=== PATIENT | male | born 1935 | race Caucasian/White ===

== ENCOUNTER 2016-10-06 14:30 | Inpatient (IN) | payer MEDICARE, BC ==
[~2016-10-06] VITALS: Ht 177.8 cm; Wt 85.8 kg
[2016-10-06] MEDS ORDERED: MORPHINE 2 MG/ML 1ML SYRINGE IV PRN ×2 (16:00→18:15)
[2016-10-06] MEDS ORDERED: ONDANSETRON 4MG/2ML VIAL (J2405) IV PRN (16:00)
[2016-10-06] MEDS ORDERED: PERCOCET 5MG/325MG TAB PO PRN ×2 (16:00→18:15)
[2016-10-06] MEDS ORDERED: ACETAMINOPHEN TAB 650MG DOSE (2X325MG) PO PRN (16:00)
[2016-10-06 16:30] VITALS: BP 126/58
[2016-10-06] MEDS ORDERED: KEPP500T6 PO (17:09)
[2016-10-06] MEDS ORDERED: HYDR25T PO (17:12)
[2016-10-06] MEDS ORDERED: CARB10TA2 PO (17:12)
[2016-10-06] MEDS ORDERED: DOXA1TAB73 PO (17:12)
[2016-10-06] MEDS ORDERED: LOVA40TA PO (17:12)
[2016-10-06] MEDS ORDERED: LEVO200T4 PO (17:12)
[2016-10-06] MEDS ORDERED: ZYLO300T4 PO (17:16)
[2016-10-06] MEDS ORDERED: TIMO5OPG OU (17:16)
[2016-10-06] MEDS ORDERED: RENV2TAB PO (17:16)
[2016-10-06] MEDS ORDERED: RENATAB6 PO (17:16)
[2016-10-06] MEDS ORDERED: FURO1TAB15 PO (17:16)
[2016-10-06] MEDS ORDERED: LATA5OPD OU (17:16)
[2016-10-06] MEDS ORDERED: CARV6.25 PO (17:17)
[2016-10-06] MEDS ORDERED: hydrOXYzine 25 MG TAB PO PRN (17:30)
[2016-10-06] MEDS ORDERED: HEPARIN SOD (PORCINE) 5000 UNITS/ML VIAL SQ SCH (17:30)
[2016-10-06] MEDS: (RENVELA) SEVELAMER **CARBONate** 800 MG TAB PO SCH (18:05)
[2016-10-06] MEDS: SIMVASTATIN 40 MG TAB PO SCH (18:06)
[2016-10-06] MEDS: PERCOCET 5MG/325MG TAB PO PRN (18:06)
--- NOTE | 2016-10-06 19:06 | CR.PDOC ---
[facility] Consultation Consultation DATE OF CONSULTATION: 10/06/2016 PRIMARY CARE PHYSICIAN: Dr. Tien Stanford [place], [place] REFERRING PROVIDER: ATTENDING PHYSICIAN: Dr. Bragg REASON FOR CONSULTATION/CHIEF COMPLAINT: medical management. HISTORY OF PRESENT ILLNESS: Mr. Savage is an 81 y/o male with past medical history of end stage kidney disease stage IV on HD M,W,F, atrial fibrillation, hypertension, history of seizures with last two being in August 2016, pt is maintained on Kayla, who presented today as a transfer pt from [facility] to receive his hemodialysis after he sustained a fall earlier today as he was stepping on a small ladder to help his put away [employer] decorations. The patient states that his lost balance of the container they were trying to lift and this caused him to lose his balance, the patient reports that he fell backwards and landed on his right hip and right elbow, the pt states that his fall was about 18 inches. The patient denies feeling dizzy, chest pain or having blurred vision prior to the episode, the patient did not sustain loss of consciousness nor did he hit his head on his fall. His only known abrasion is on his right elbow, although the patient is describing right hip pain on bedside exam with location more localized to his right groin area. The patient denies having history of heart failure, seizure, stroke, cardiac catheterization however he does carry a history of atrial fibrillation for the past 10-15 years of which he has been on anticoagulation for, he follows with [facility]. He denies history of ACS, CHF, prior stroke or cardiac cath. Of note the patient did sustain another fall in August 2016 when he was on Coumadin and sustained a subarachnoid hemorrhage, his Coumadin was stopped at this point. The patient receives hemodialysis on Sunday, Sunday and Sunday but he does make urine and is on furosemide. The patient's EKG showed A. fib and bradycardia, however the patient is asymptomatic, he denies dizziness, feeling lightheaded, blurred vision, or headache. The patient has a right hip fracture and he is to be medically optimized before surgery. The pt states that he was on the ground for about 30 minutes before EMS came, he admits that he doesn't think he can weight bear on the right leg at this time. The patient was admitted to the telemetry floor, we will hold his Coreg. therapy in light of his bradycardia tonight. We will consult cardiology and orthopedic surgery. ALLERGIES: Please see below. HOME MEDICATIONS: Please see below. PAST MEDICAL HISTORY: 1. End Stage Kidney Disease IV on hemodialysis M,W,F 2. Atrial Fib 3. HTN 4. Seizure history- last two being in 2015, maintained on Keppra PAST SURGICAL HISTORY: 1. B/L knee replacement 2. Tonsillectomy FAMILY HISTORY: Father: Mother: Siblings: Children: Hereditary Diseases: Unexpected deaths due to medical reasons: SOCIAL HISTORY: Marital status and/or living arrangements: lives with Children: Employment: Tobacco use: used to smoke a cigar a day in the s ETOH: rarely, 1-2x a month, 1-2 drinks Illicit drug use: IV drug use: Other relevant social factors: REVIEW OF SYSTEMS: CONSTITUTIONAL: denies changes in appetite or weight recently HEENT: denies h/a or blurred vision CARDIOVASCULAR: denies CP or palpitations RESPIRATORY: denies SOB, cough or wheeze GENITOURINARY: no dysuria or hematuria admitted MUSCULOSKELETAL: denies weakness GASTROINTESTINAL: denies changes in bowel habits SKIN: intact, denies rash or lesion aside from right elbow abrasion sustained on fall NEUROLOGICAL: non-contributory PSYCHIATRIC: appropriate affect. denies history of psych illness ENDOCRINE: non-contributory HEMATOLOGIC/LYMPHATIC: denies easy bruising or bleeding ALLERGIC/IMMUNOLOGIC: no recent infections PHYSICAL EXAMINATION: VITAL SIGNS: Please see below. GENERAL APPEARANCE: pt is laying in bed, describes pain in his right hip and groin area, otherwise comfortable. HEENT: NCAT, PERRLA, moist mucus membranes, nares patent b/l RESPIRATORY: CTA b/l, good expansion b/l, no wheezing, rhonchi, rales appreciated CARDIOVASCULAR: Irregularly irregular, no murmurs or gallops appreciated, normal s1 and s2 ABDOMEN: NABSx4, no organomegaly, non-distended, non-tender. EXTREMITIES: right elbow abrasion with superficial lac., bandaged. Right leg without edema or erythema at right hip or groin. Pt unable to move right leg aside from wiggling toes NEUROLOGICAL: no focal deficits appreciated PSYCHIATRIC: affect is normal and appropriate LABORATORY DATA: Please see below. ASSESSMENT/PLAN: 1. Right hip fracture- pt will see Ortho. Sx. tomorrow, will control pain tonight with morphine and Percocet therapy. 2. Atrial Fibrillation- pt is currently bradycardic w rate in 40's, will hold Coreg therapy tonight. Pt is asx. Pt is on telemetry- continue to monitor. Cardiology will see pt in Am. 3. Seizure- continue Keppra therapy 4. HTN- BP is stable currently Vital Signs/I&O Vital Signs Date Time Temp Pulse Resp B/P Pulse Ox O2 Delivery O2 Flow Rate FiO2 10/06/16 18:06 18 10/06/16 16:30 95.8 52 126/58 96 Allergies Coded Allergies: Penicillins (Unverified Allergy, Intermediate, HIVES, 10/06/16) Home Medications Scheduled (Antoinette-Annie Rx 1 mg) 1 Tab Tab 1 TAB PO DAILY (Reported) Allopurinol (Zyloprim) 300 Mg Tab 300 MG PO DAILY (Reported) Carbidopa/Levodopa (Carbidopa/Levodopa 10-100 mg) 1 Tab Tab 1 TAB PO QHS ( Reported) Carvedilol (Carvedilol) 6.25 Mg Tab 6.25 MG PO BID (Reported) SEE COMMENTS Doxazosin Mesylate (Doxazosin) 8 Mg Tab 8 MG PO QHS (Reported) Furosemide (Furosemide) 80 Mg Tab 80 MG PO DAILY (Reported) Latanoprost (Latanoprost) 50 Drop/2.5 Ml Soln 1 DROP OU QHS (Reported) Levetiracetam (Keppra) 500 Mg Tab 500 MG PO BID (Reported) NOON AND BEDTIME Levothyroxine Sodium (Synthroid) 200 Mcg Tab 200 MCG PO DAILY (Reported) Lovastatin (Lovastatin) 40 Mg Tab 40 MG PO QPM (Reported) DINNERTIME Sevelamer Carbonate (Renvela) 800 Mg Tab 1,600 MG PO WM (Reported) Timolol Maleate (Timolol Maleate 0.5% Opth GFS) 100 Drop/5 Ml Gel 1 DROP OU DAILY (Reported) Scheduled PRN Hydroxyzine HCl (Hydroxyzine HCl) 25 Mg Tab 25 MG PO TID PRN PRN ANXIETY ( Reported) GME ATTESTATION GME ATTESTATION My preceptor for this patient encounter was physically present in the building during the encounter and was fully available. As needed, all aspects of the patient interview, examination, medical decision making process, and medical care plan development were reviewed and approved by the preceptor. Preceptor is aware and concurs with the plan as stated in the body of this note and will attest to such by his/her cosignature. ATTENDING NOTE Attending Note: I have independently examined this patient and all aspects of the exam and treatment decisions have been discussed with the resident. A member of the hospitalist staff will continue to follow this patient through discharge. IAN RILEY DO Oct 06, 2016 19:06 LIDIA ROSALES DO Oct 06, 2016 20:48
[2016-10-06 20:20] VITALS: BP 136/61
[2016-10-06] MEDS: SINEMET 10-100 MG TAB PO SCH (20:53)
[2016-10-06] MEDS: DOXAZOSIN MESYLATE 4 MG TAB PO SCH (20:53)
[2016-10-06] MEDS: LATANOPROST 0.005% OPHTH SOLN 2.5 ML OU SCH (20:53)
[2016-10-06] MEDS: DOCUSATE SODIUM 100 MG CAP PO SCH (20:53)
[2016-10-06] MEDS: levETIRAcetam 250MG TABLET (KEPPRA) PO SCH (20:53)
[2016-10-06] MEDS ORDERED: HEPARIN SOD (PORCINE) 5000 UNITS/ML VIAL SC SCH (22:00)
[2016-10-07] VITALS (10 sets, daily range): BP systolic 110–134; BP diastolic 51–65
[2016-10-07] MEDS: LEVOTHYROXINE 0.1 MG TAB (100 MCG) PO SCH (05:42)
[2016-10-07 05:51] LABS: MEAN CORPUSCULAR HEMOGLOBIN 36.5 pg (27.0-33.0); MEAN CORPUSCULAR HGB CONC 32.6 g/dl (32.0-36.5); MEAN CORPUSCULAR VOLUME 112.1 fl (80.0-96.0); WHITE BLOOD COUNT 5.2 K/mm3 (4.0-10.0)
[2016-10-07 06:06] LABS: ALBUMIN 3.1 GM/DL (3.2-5.2); CALCIUM LEVEL 9.6 MG/DL (8.8-10.2); CREATININE FOR GFR 5.24 MG/DL (0.70-1.30); GLOMERULAR FILTRATION RATE 11.3 (>35); PHOSPHORUS LEVEL 3.9 MG/DL (2.5-4.9); POTASSIUM SERUM 4.5 MEQ/L (3.5-5.1)
[2016-10-07] MEDS ORDERED: CLINDAMYCIN 600 MG in APPROPRIATE DILUENT 1 EA IV ONE (08:00)
[2016-10-07] MEDS: (RENVELA) SEVELAMER **CARBONate** 800 MG TAB PO SCH ×3 (08:00→17:42)
--- NOTE | 2016-10-07 08:35 | IPNPDOC ---
Assessment/Plan Date Seen The patient was seen on 10/07/16. Problems Problems: (1) Fracture of right hip Status: Acute Response to Treatment: Stable Problem Text: Ortho consulted- appreciate their recommendations X-ray of hip shows comminuted intertrochanteric fracture of right femur. 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 patients pain controlled with morphine and Percocet therapy (2) Atrial fibrillation Status: Acute Response to Treatment: Stable Problem Text: Pt. is currently rate controlled have held Coreg last night due to pts EKG in ED being bradycardic with rate in 40's pt has not had Coumadin therapy since Aug 2016 when he was taken off for a SAH after a fall cardiology consulted-appreciate their recommendation- pt will have to be medically optimized prior to surgery (3) HTN (hypertension) Status: Acute Problem Text: patients BP is currently stable will continue to monitor (4) DVT prophylaxis Status: Acute Problem Text: SCD Plan / VTE VTE Prophylaxis Ordered?: Yes Subjective Review of Systems CC/HPI The patient is a 81-year-old male admitted with a reason for visit of Right Hip Fracture. General: Reports: Malaise, Denies: Chills, Fatigue, Night Sweats Constitutional: Reports: Malaise, Denies: Chills, Fatigue, Fever, Night Sweats, Weakness Eyes: Denies: Conjunctivae inflammation, Eyelid inflammation, Pain, Redness, Vision change ENT: Denies: Head Aches Skin: Denies: Jaundice, Lesions, Rash Pulmonary: Denies: Cough, Dyspnea, Pleuritic Chest Pain Cardiovascular: Denies: Chest Pain, Orthopnea, Palpitations Gastrointestinal: Denies: Abdominal Pain, Nausea, Vomiting Genitourinary: Denies: Dysuria Musculoskeletal: Reports: Other Symptoms (still has some rith hip/groin pain) Neurological: Denies: Weakness Psych: Reports: Mood Normal Objective Physical Examination General Exam: Positive: Alert, Cooperative, Mild Distress Eye Exam: Positive: Conjunctiva & lids normal, EOMI, PERRLA, Negative: Ptosis, Sclera icteric ENT Exam: Positive: Atraumatic, Mucous membr. moist/pink, Nares Patent, Pharynx Normal, Tongue Midline, Negative: Pharyngeal Edema Neck Exam: Positive: Supple Chest Exam: Positive: Clear to auscultation, Normal air movement, Negative: Rales, Rhonchi, Wheezing Heart Exam: Positive: Normal S1, Normal S2, Tachycardic, Negative: Murmurs Telemetry: Positive: Atrial fibrillation Abdomen Exam: Positive: Normal bowel sounds, Soft, Negative: Hepatospenomegaly, Mass, Tenderness Extremity Exam: Positive: Tenderness (right hip groin area), Negative: Swelling Skin Exam: Positive: Nl turgor and temperature Psych Exam: Positive: Mental status NL Vital Signs/I&O Vital Signs Date Time Temp Pulse Resp B/P Pulse Ox O2 Delivery O2 Flow Rate FiO2 10/07/16 04:10 97.2 72 18 114/55 95 Room Air I&O- Last 24 Hours up to 6 AM 10/07/16 06:00 Intake Total 480 ml Balance 480 ml Laboratory Data Labs 24H Laboratory Tests 2 10/07/16 05:31: Albumin 3.1L, Blood Urea Nitrogen 26H, Creatinine 5.24H, Sodium Level 140, Potassium Level 4.5, Chloride Level 100, Carbon Dioxide Level 35H, Anion Gap 5L , Calcium Level 9.6, Glomerular Filtration Rate 11.3L, Phosphorus Level 3.9 CBC/BMP Laboratory Tests 10/07/16 05:31 Anion Gap 5 L, Red Blood Count 2.25 L, Mean Corpuscular Volume 112.1 H, Mean Corpuscular Hemoglobin 36.5 H, Mean Corpuscular Hemoglobin Concent 32.6, Red Cell Distribution Width 14.0 GME ATTESTATION GME ATTESTATION My preceptor for this patient encounter was physically present in the building during the encounter and was fully available. As needed, all aspects of the patient interview, examination, medical decision making process, and medical care plan development were reviewed and approved by the preceptor. Preceptor is aware and concurs with the plan as stated in the body of this note and will attest to such by his/her cosignature. IAN RILEY DO Oct 07, 2016 08:35
[2016-10-07] MEDS: ALLOPURINOL 300 MG TAB PO SCH ×2 (08:57→09:00)
[2016-10-07] MEDS: NEPHRO-VIT TAB (NEPHROCAPS) PO SCH ×2 (08:57→09:00)
[2016-10-07] MEDS: DOCUSATE SODIUM 100 MG CAP PO SCH ×3 (08:57→22:03)
[2016-10-07] MEDS: FUROSEMIDE 80 MG TAB PO SCH ×2 (08:57→09:00)
[2016-10-07] MEDS ORDERED: TIMOLOL XE GFS 0.5% OPHTH 5 ML OU SCH (09:00)
--- NOTE | 2016-10-07 09:47 | REP ---
Right hip series: Portable cross-table lateral two views. History: Fracture, portable cross-table lateral requested. No comparison views. Findings: Two portable cross-table lateral views of the right hip demonstrate evidence of a fracture in the intertrochanteric region. No significant displacement. Vascular calcification is noted. This should be correlated with frontal views. Signed by Tre Pérez MD 10/07/2016 10:12 A
--- NOTE | 2016-10-07 10:20 | REP ---
Right hip: Two views. History: Fracture. Comparison is made with cross-table lateral views obtained earlier. AP and cross-table lateral views again demonstrate a comminuted intertrochanteric fracture nondisplaced. Vascular calcifications noted. Impression: Comminuted intertrochanteric fracture right femur. There is osteoarthritis of the right hip moderate in degree. Signed by Tre Pérez MD 10/07/2016 02:05 P
--- NOTE | 2016-10-07 11:22 | CR ---
DATE OF CONSULTATION: 10/07/2016 REFERRING PHYSICIAN: Dr. Bragg INDICATION: Preoperative clearance for hip surgery. The patient has a history of chronic atrial fibrillation and recent subdural hematoma. HISTORY OF PRESENT ILLNESS: Mr. Savage is an 81-year-old man who resides in [place]. He is a chronic hemodialysis patient for approximately the last 2 years. He has also chronic atrial fibrillation, for which he was anticoagulated on Coumadin for years. On 08/07/2016, he fell and caused himself subdural hematoma. He was evaluated at [facility]; and temporarily, his anticoagulation was stopped. He was already seen in followup and instructed to restart the Coumadin, but before he could do so, he again fell from a ladder and broke his hip. I am asked for clearance for surgery. I see the patient in progressive care unit (PCU) bed. He is comfortable and has no complaints. He denies any history of coronary artery disease or congestive heart failure. His atrial fibrillation has been rate controlled without major complications. He tells me that he is quite active in spite of his advanced age and dialysis status. He does a lot of work around the house and generally has no trouble doing so. He specifically denies shortness of breath or chest discomfort, but he does admit that if he really pushes himself, he would get short of breath. He denies any history of syncope as such. There has been no paroxysmal nocturnal dyspnea (PND), orthopnea. His last dialysis treatment was yesterday. PAST MEDICAL HISTORY: 1. End-stage renal disease, on dialysis Sunday, Sunday, Sunday, believed due to hypertensive nephrosclerosis. 2. Chronic atrial fibrillation. 3. Arterial hypertension. 4. History of seizure 5. Hypothyroidism. SURGICAL HISTORY: Is positive for knee replacement bilaterally, tonsillectomy, and dialysis fistula. FAMILY HISTORY: Denies first-degree relative with early coronary artery disease. SOCIAL HISTORY: The patient is retired and lives with his . He used to smoke but quit at least 30 years ago. No significant alcohol use. On the review of systems, he denies any recent fever, chills, nausea, vomiting, diarrhea. There has not been any chest pain. No syncope. No sensation of palpitations. No shortness of breath. No PND, orthopnea. No abdominal pain. He does complain about hip pain. No peripheral edema. PHYSICAL EXAMINATION: Mr. Savage is an elderly man who appears approximately his age. He is in no distress, alert and oriented and appropriate. His last sets of vital signs reveal blood pressure 112/64, heart rate was in 70s and 80s. He is afebrile. Saturation is 93% on room air. His jugular venous distention (JVD) is not high. Heart examination reveals irregular rhythm. There is a murmur best heard just left from the sternum, approximately 2/6 intensity. There is also probably about 2/6 intensity murmur over the aortic area radiating to both carotids, more on the left than right. Lungs are relatively clear to auscultation with decent air movement. Abdomen is soft, nontender. I do not appreciate any hepatosplenomegaly or masses. Extremities are free of edema. Peripheral pulses are palpable. Neurologically, I did not formally test his strengths, but he has intact thought and speech, and he moves all four extremities. Laboratory-[facility], his basic metabolic panel as of today: Sodium 140, potassium 4.5, BUN 26, creatinine 5.2, and calcium 9.6. His CBC: hemoglobin 8.2, hematocrit 25, and platelet count 98,000. There is no electrocardiogram (ECG) yet from our facility, but the ECG from [facility] reveals atrial fibrillation with controlled rate and fairly minimal nonspecific repolarization abnormalities, relatively normal electrocardiogram (EKG) but for atrial fibrillation. ASSESSMENT AND PLAN: Mr. Savage is an 81-year-old man who has chronic atrial fibrillation that has been controlled on 6.25 mg of Coreg chronically, who presented with hip fracture after a fall. I believe that he can proceed with open reduction and internal fixation (ORIF) without further delay. He does not have any high-risk features precluding the surgery, and the medically-treated hip fracture has terrible prognosis. I do not have any specific recommendations for perioperative management. He chronically takes beta blockers, and I believe we can give him one dose this morning, even though he was somewhat bradycardic yesterday and the dose was held. I also would restart the Coumadin after the surgery. The patient tells me that he was already cleared for restarting the Coumadin from his neuro surgeon [facility]. He just did not have time to do it because he almost immediately fell and broke his hip. Otherwise, he should be monitored on telemetry after the surgery at least for the first day. I spoke with the patient and his family extensively. KRISTIAN
[2016-10-07] MEDS: CARVedilol 3.125 MG TAB PO SCH ×2 (12:07→17:32)
[2016-10-07] MEDS: levETIRAcetam 250MG TABLET (KEPPRA) PO SCH ×2 (12:07→22:02)
[2016-10-07] MEDS: NS 0.45% 1,000 ML IV SCH ×2 (12:10→17:02)
[2016-10-07] MEDS ORDERED: CLINDAMYCIN 600 MG/50 ML PREMIX BAG As Ordered ONE (14:28)
--- NOTE | 2016-10-07 15:10 | ECGEPIP ---
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
[2016-10-07] MEDS ORDERED: LIDOCAINE 2% INJ 100 MG/5 ML SDV (FOR ANES.) As Ordered ONE (15:25)
[2016-10-07] MEDS ORDERED: ePHEDrine SULFATE 25 MG/5 ML(5MG/ML) SYRINGE As Ordered ONE (15:25)
[2016-10-07] MEDS ORDERED: fentaNYL 100 MCG/2 ML INJECTION (J3010) As Ordered ONE (15:25)
[2016-10-07] MEDS ORDERED: PHENYLephrine HCL 500 MCG/5 ML (100MCG/ML) SYRINGE (J2370) As Ordered ONE (15:25)
[2016-10-07] MEDS ORDERED: MIDAZOLAM INJ 2 MG/2 ML VIAL (J2250) As Ordered ONE (15:25)
[2016-10-07] MEDS ORDERED: ROCURONIUM BROMIDE 50 MG/5 ML VIAL As Ordered ONE (15:25)
[2016-10-07] MEDS ORDERED: PROPOFOL 200 MG/20 ML VIAL As Ordered ONE (15:25)
[2016-10-07] MEDS ORDERED: ETOMIDATE INJ 20MG/10ML VIAL As Ordered ONE (15:25)
[2016-10-07] MEDS ORDERED: GLYCOPYRROLATE INJ 0.2 MG/ML 2 ML VIAL As Ordered ONE (16:12)
[2016-10-07] MEDS ORDERED: NEOSTIGMINE 1MG/ML 5 ML SYRINGE (J2710) As Ordered ONE (16:13)
[2016-10-07] MEDS ORDERED: ONDANSETRON 4MG/2ML VIAL (J2405) As Ordered ONE (16:15)
[2016-10-07] MEDS ORDERED: fentaNYL 100 MCG/2 ML INJECTION (J3010) IV PRN (17:00)
[2016-10-07] MEDS ORDERED: MORPHINE 2 MG/ML 1ML SYRINGE IV PRN (17:00)
[2016-10-07] MEDS ORDERED: ONDANSETRON 4MG/2ML VIAL (J2405) IV PRN (17:00)
[2016-10-07] MEDS ORDERED: LR 1,000 ML IV SCH (17:00)
[2016-10-07] MEDS: SIMVASTATIN 40 MG TAB PO SCH (17:42)
[2016-10-07] MEDS: PERCOCET 5MG/325MG TAB PO PRN (17:43)
--- NOTE | 2016-10-07 20:35 | CR ---
DATE OF CONSULTATION: 10/07/2016 REQUESTING PHYSICIAN: Dr. Dimas Casiano. REASON FOR CONSULTATION: Management of end-stage renal disease and hemodialysis. CHIEF COMPLAINT: The patient was transferred from [facility] yesterday for further management of right hip fracture. HISTORY OF PRESENT ILLNESS: Carlos Savage is an 81-year-old male with past medical history of end-stage renal disease on hemodialysis every Sunday, Sunday, Sunday, and multiple other comorbidities as mentioned below. He is well known to nephrology service. He gets hemodialyzed at [facility], and after his hemodialysis session yesterday, the patient was putting away the [employer] decorations and he fell from the ladder and he hurt his right hip. The patient was initially transferred to [facility] where he was found to have a right hip fracture on the imaging. He has been transferred to [facility] for further management of fracture of the right femur. Nephrology service has been called for further management of end-stage renal disease. PAST MEDICAL HISTORY: 1. End-stage renal disease on hemodialysis every Sunday, Sunday, Sunday. 2. History of atrial fibrillation. 3. Hypertension. 4. Seizure disorder. 5. History of subarachnoid hemorrhage after a fall. PAST SURGICAL HISTORY: 1. Status post bilateral knee replacements. 2. Status post tonsillectomy. ALLERGIES: The patient is allergic to PENICILLIN that causes rash. CURRENT INPATIENT MEDICATIONS: - clindamycin 600 mg intravenous (IV) one dose - Ringer's lactate at 80 mL per hour - Tylenol as needed - allopurinol 300 mg by mouth daily - Sinemet one tablet at bedtime - Coreg 3.125 mg by mouth every six hours - Colace 100 mg twice a day - doxazosin 8 mg at bedtime - fentanyl patch - Lasix 80 mg daily - Vistaril 25 mg by mouth three times a day - Keppra 500 mg by mouth twice a day - Synthroid 0.2 mg by mouth daily - morphine as needed - Zofran as needed - Percocet as needed - Renvela 1600 mg by mouth with meals - simvastatin 40 mg at bedtime - vitamin B complex FAMILY HISTORY: Family history is negative for any end-stage renal disease requiring hemodialysis. SOCIAL HISTORY: The patient is , lives with his . He is a former smoker. He quit in . He denies any alcohol abuse or illicit drug abuse. REVIEW OF SYSTEMS: CONSTITUTIONAL: The patient denies any weight loss, weight gain, fever, chills or rigors. EYES: He denies any blurry vision or double vision. ENT: He denies any ear discharge, ear pain, dysphagia, odynophagia. CARDIOVASCULAR: He denies any chest pain or palpitations, but he has a history of atrial fibrillation. RESPIRATORY: He denies any shortness of breath, cough or wheezing. GASTROINTESTINAL: He denies any pain abdomen, constipation, or diarrhea. GENITOURINARY: He denies any dysuria or hematuria, but he reports history of end-stage renal disease. MUSCULOSKELETAL: He reports inability to walk after a fall. SKIN: He denies any rashes or ulcers. CENTRAL NERVOUS SYSTEM (BRIAR CUTTER): He reports history of seizures and he is on Keppra. PSYCHIATRIC: He denies any history of depression or anxiety. ENDOCRINE: He has a history of hypothyroidism. HEMATOLOGIC/ONCOLOGIC: He reports a history of anemia secondary to end-stage renal disease. All other review of systems is negative. PHYSICAL EXAMINATION: GENERAL: The patient is awake, alert, oriented times three, lying in bed in no apparent distress. VITAL SIGNS: Temperature is 97.9 degrees Fahrenheit. Blood pressure is 118/57, pulse is 81, respiratory rate of 16, saturating 95% on room air. INTAKE AND OUTPUT: Urine output recorded as 200 mL. Weight in the bed scale is 85.6 kg. HEAD/NECK: Extraocular muscles intact. Pupils equal, round, and reactive to light. Mucous membranes are slightly dry. Neck is supple. There is no jugular venous distention (JVD). CARDIOVASCULAR: The patient has a 3/6 systolic murmur which is radiating to carotids. He has irregularly irregular heart rate. RESPIRATORY: Chest is clear to auscultation bilaterally, bilateral equal air entry. ABDOMEN: Soft. Positive bowel sounds. Nontender. No ascites. No organomegaly. EXTREMITIES: The patient has a shortened and externally rotated right leg with decreased range of movement. Otherwise, no clubbing or cyanosis. Pulses are 2+. BRIAR CUTTER: No focal neurological deficit. Power is 5/5 in bilateral upper extremities and left leg. The patient cannot move right leg because of pain. SKIN: No rashes or ulcers. PSYCHIATRIC: Normal mood and affect. ARTERIOVENOUS (AV) ACCESS: The patient has left forearm AV fistula with positive thrill and bruit. LABORATORY DATA: CBC showed a WBC of 5.2, hemoglobin 8.2, platelets are 98. BMP shows sodium 140, potassium 4.5, chloride 100, bicarbonate 35, BUN is 26, creatinine 5.2, calcium 9.6, phosphorus is 3.9, albumin 3.1. IMAGING: X-ray of the right hip showed a comminuted intertrochanteric fracture of the right femur. ASSESSMENT: An 81-year-old male with past medical history of end-stage renal disease on hemodialysis, atrial fibrillation, hypertension, seizure disorder, hypothyroidism, admitted this time with right hip fracture after a fall. Nephrology service following the patient for management of end-stage renal disease. PLAN: 1. End-stage renal disease. The patient was dialyzed yesterday according to his schedule. No urgent need to do hemodialysis today. The patient will be evaluated after surgery for any need to do hemodialysis. 2. Right hip fracture. Is okay to take the patient to operating room (OR) for right hip surgery from nephrology standpoint. His electrolytes are within acceptable range. His volume status is well optimized. 3. Hypertension. The patient's blood pressure is within acceptable range at this time. Continue current dose of Coreg, doxazosin. 4. Chronic kidney disease, mineral bone disease. The patient can continue Renvela 1600 mg by mouth three times a day with meals after he starts eating postoperatively. 5. 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 Continue current dose of allopurinol 300 mg by mouth daily. 6. Atrial fibrillation. Management as per primary team. Rate is controlled at this time. The patient is not on anticoagulation because of history of subarachnoid hemorrhage. Thank you for involving us in the care of this patient. We shall be happy to follow the patient along with you tomorrow morning.
[2016-10-07] MEDS: LATANOPROST 0.005% OPHTH SOLN 2.5 ML OU SCH (22:02)
[2016-10-07] MEDS: SINEMET 10-100 MG TAB PO SCH (22:03)
[2016-10-07] MEDS: DOXAZOSIN MESYLATE 4 MG TAB PO SCH (22:03)
[2016-10-08 03:58] VITALS: BP 119/58
[2016-10-08] MEDS: LEVOTHYROXINE 0.1 MG TAB (100 MCG) PO SCH (05:41)
[2016-10-08] MEDS: CARVedilol 3.125 MG TAB PO SCH ×4 (05:42→17:05)
[2016-10-08 05:54] LABS: MEAN CORPUSCULAR HEMOGLOBIN 36.7 pg (27.0-33.0); MEAN CORPUSCULAR HGB CONC 32.3 g/dl (32.0-36.5); MEAN CORPUSCULAR VOLUME 113.4 fl (80.0-96.0); RED CELL DISTRIBUTION WIDTH 13.9 % (11.5-14.5); WHITE BLOOD COUNT 5.6 K/mm3 (4.0-10.0)
[2016-10-08 05:55] LABS: ALBUMIN 3.1 GM/DL (3.2-5.2); CALCIUM LEVEL 8.9 MG/DL (8.8-10.2); CREATININE FOR GFR 6.69 MG/DL (0.70-1.30); GLOMERULAR FILTRATION RATE 8.5 (>35); POTASSIUM SERUM 5.1 MEQ/L (3.5-5.1)
[2016-10-08 06:16] LABS: PHOSPHORUS LEVEL 5.4 MG/DL (2.5-4.9)
--- NOTE | 2016-10-08 06:42 | REP ---
Right hip: Three views limited study OR films. History: Gamma nail in the OR. 2 minutes 40 seconds of fluoroscopy time is reported. Findings: A sequence of three fluoroscopically obtained intraprocedural spot radiographs of the right hip document pin madison fixation. Vascular calcification is noted. Signed by Tre Pérez MD 10/08/2016 07:36 A
[2016-10-08 08:00] VITALS: BP 125/56
[2016-10-08] MEDS ORDERED: PERCOCET 5MG/325MG TAB PO PRN (08:15)
[2016-10-08] MEDS: DOCUSATE SODIUM 100 MG CAP PO SCH ×2 (09:10→22:41)
[2016-10-08] MEDS: NEPHRO-VIT TAB (NEPHROCAPS) PO SCH (09:10)
[2016-10-08] MEDS: (RENVELA) SEVELAMER **CARBONate** 800 MG TAB PO SCH ×3 (09:10→17:05)
[2016-10-08] MEDS: ALLOPURINOL 300 MG TAB PO SCH (09:10)
[2016-10-08] MEDS: MIRALAX *UNIT DOSE* 17GM PACKET PO SCH (09:11)
[2016-10-08] MEDS: FUROSEMIDE 80 MG TAB PO SCH (09:14)
[2016-10-08 12:00] VITALS: BP 116/56
[2016-10-08] MEDS: levETIRAcetam 250MG TABLET (KEPPRA) PO SCH ×2 (12:35→22:41)
--- NOTE | 2016-10-08 14:27 | IPNPDOC ---
Assessment/Plan Date Seen The patient was seen on 10/08/16. Problems Problems: (1) Fracture of right hip Status: Acute Response to Treatment: Stable Problem Text: s/p surgery continue PT, pain control and anticoagulation per surgery (2) Atrial fibrillation Status: Chronic Response to Treatment: Stable Problem Text: Pt. is currently rate controlled continue coreg and coumadin (3) HTN (hypertension) Status: Chronic Response to Treatment: Stable Problem Text: patients BP is currently stable will continue to monitor (4) DVT prophylaxis Status: Acute Problem Text: coumadin Plan / VTE VTE Prophylaxis Ordered?: Yes Subjective Review of Systems CC/HPI The patient is a 81-year-old male admitted with a reason for visit of Right Hip Fracture. Pulmonary: Denies: Cough, Dyspnea Cardiovascular: Denies: Chest Pain, Lt Headedness, Orthopnea, Palpitations, Paroxysmal Noc. Dyspnea Objective Physical Examination General Exam: Positive: Alert, Cooperative, Mild Distress Eye Exam: Positive: Conjunctiva & lids normal, EOMI, PERRLA, Negative: Ptosis, Sclera icteric ENT Exam: Positive: Atraumatic, Mucous membr. moist/pink, Nares Patent, Pharynx Normal, Tongue Midline, Negative: Pharyngeal Edema Neck Exam: Positive: Supple Chest Exam: Positive: Clear to auscultation, Normal air movement, Negative: Rales, Rhonchi, Wheezing Heart Exam: Positive: Normal S1, Normal S2, Tachycardic, Negative: Murmurs Telemetry: Positive: Atrial fibrillation Abdomen Exam: Positive: Normal bowel sounds, Soft, Negative: Hepatospenomegaly, Mass, Tenderness Extremity Exam: Positive: Tenderness (right hip groin area), Negative: Swelling Skin Exam: Positive: Nl turgor and temperature Psych Exam: Positive: Mental status NL Vital Signs/I&O Vital Signs Date Time Temp Pulse Resp B/P Pulse Ox O2 Delivery O2 Flow Rate FiO2 10/08/16 12:35 61 116/56 10/08/16 12:00 96.0 18 98 Room Air I&O- Last 24 Hours up to 6 AM 10/08/16 05:59 Intake Total 810 ml Output Total 308 ml Balance 502 ml Laboratory Data Labs 24H Laboratory Tests 2 10/08/16 05:29: Albumin 3.1L, Blood Urea Nitrogen 38H, Creatinine 6.69H, Sodium Level 137, Potassium Level 5.1, Chloride Level 98, Carbon Dioxide Level 31, Anion Gap 8, Calcium Level 8.9, Glomerular Filtration Rate 8.5L, Phosphorus Level 5.4#H CBC/BMP Laboratory Tests 10/08/16 05:29 Anion Gap 8, Red Blood Count 2.15 L, Mean Corpuscular Volume 113.4 H, Mean Corpuscular Hemoglobin 36.7 H, Mean Corpuscular Hemoglobin Concent 32.3, Red Cell Distribution Width 13.9 MAYE MITCHELL DO Oct 08, 2016 14:27
[2016-10-08 16:00] VITALS: BP 115/54
[2016-10-08] MEDS ORDERED: WARFARIN SOD 5 MG TAB PO ONE (17:00)
[2016-10-08] MEDS: SIMVASTATIN 40 MG TAB PO SCH (17:05)
[2016-10-08 22:38] VITALS: BP 123/58
[2016-10-08] MEDS: LATANOPROST 0.005% OPHTH SOLN 2.5 ML OU SCH (22:40)
[2016-10-08] MEDS: SINEMET 10-100 MG TAB PO SCH (22:41)
[2016-10-08] MEDS: DOXAZOSIN MESYLATE 4 MG TAB PO SCH (22:42)
[2016-10-09 05:40] VITALS: BP 100/49
[2016-10-09 05:47] LABS: MEAN CORPUSCULAR HEMOGLOBIN 37.3 pg (27.0-33.0); MEAN CORPUSCULAR HGB CONC 33.8 g/dl (32.0-36.5); MEAN CORPUSCULAR VOLUME 110.4 fl (80.0-96.0); RED CELL DISTRIBUTION WIDTH 13.6 % (11.5-14.5); WHITE BLOOD COUNT 5.8 K/mm3 (4.0-10.0)
[2016-10-09 05:50] LABS: INR 1.14
[2016-10-09] MEDS: CARVedilol 3.125 MG TAB PO SCH ×4 (06:00→17:17)
[2016-10-09 06:03] LABS: ALBUMIN 2.8 GM/DL (3.2-5.2); CREATININE FOR GFR 8.13 MG/DL (0.70-1.30); GLOMERULAR FILTRATION RATE 6.8 (>35); PHOSPHORUS LEVEL 6.2 MG/DL (2.5-4.9)
[2016-10-09] MEDS: FUROSEMIDE 80 MG TAB PO SCH (06:35)
[2016-10-09] MEDS: NEPHRO-VIT TAB (NEPHROCAPS) PO SCH (06:36)
[2016-10-09] MEDS: (RENVELA) SEVELAMER **CARBONate** 800 MG TAB PO SCH ×3 (06:36→17:35)
[2016-10-09] MEDS: ALLOPURINOL 300 MG TAB PO SCH (06:36)
[2016-10-09] MEDS: LEVOTHYROXINE 0.1 MG TAB (100 MCG) PO SCH (06:37)
[2016-10-09] MEDS: DOCUSATE SODIUM 100 MG CAP PO SCH ×2 (06:37→22:03)
[2016-10-09 07:25] VITALS: BP 119/58
[2016-10-09] MEDS: MIRALAX *UNIT DOSE* 17GM PACKET PO SCH (08:53)
--- NOTE | 2016-10-09 09:45 | RO ---
DATE OF PROCEDURE: 10/07/2016 PREOPERATIVE DIAGNOSIS: He is an 81-year-old male with an orthopedic diagnosis of a right displaced intertrochanteric proximal femur fracture. POSTOPERATIVE DIAGNOSIS: PROCEDURE PERFORMED: Right hip open reduction/internal fixation with a short gamma nail. SURGEON: Stanley Capps MD METEOROLOGY PROFESSOR: None. ANESTHESIA: General anesthesia. ANESTHESIOLOGIST: Dr. Tolbert COLLECTIONS AND ARCHIVES DIRECTOR: Sushant Cordoba BLOOD LOSS: 100 mL. COMPLICATIONS: None. INDICATIONS: 81-year-old male with an unstable proximal femur fracture and recently cleared for operative intervention by the medicine service. PROCEDURE IN DETAIL: Patient was met in the preoperative holding area. Operative site was initialed by the surgeon. IV access was verified. Consent was verified. He was taken to the operative suite, where he was prepped and draped in the usual sterile fashion in the supine position on the fracture table. Preoperative radiographs demonstrated overall acceptable alignment of the proximal femur fracture after reduction maneuvers without difficulty with slight flexion and adduction. Once this was done, he was prepped and draped in the standard sterile fashion. C-arm fluoroscopic views were used to localize the incision start point. A longitudinal incision was made a couple of centimeters proximal to his greater trochanter, through the skin and through the tensor fascia. Guidewire was placed in the appropriate position down the greater trochanter. The proximal femur was reamed to accommodate the nail. The short nail was placed down the center of the canal without difficulty. The guide on the outrigger was placed to accommodate the head and neck guidewire and screw. A small incision was made in the skin and the tensor fascia, and the guide was advanced to the lateral cortex of the femur. The guidewire was placed into the center-center position on the AP and lateral radiographs without difficulty. The screw tract was reamed appropriately, and a 115 mm hip screw was placed in the center-center position. It was checked fluoroscopically in orthogonal planes. We compressed the fracture without difficulty and held it in place with a set screw proximally and an interlock screw distally. The hip moved as a unit after fixation without difficulty. The wounds were irrigated copiously and closed in layers. He was dressed sterilely, awakened, taken to recovery room in stable condition. Postoperative plan will be protected weightbearing and mobilization with physical therapy, admission for pain control and medical management, and he will be discharged when he is able. Edited: [facility] 10/11/2016 1614
[2016-10-09] MEDS ORDERED: HEPARIN 1,000 UNITS/ML 10ML VIAL (FOR RADIOLOGY& DIALYSIS ONLY) XX ONE (12:00)
[2016-10-09] MEDS ORDERED: HEPARIN 1,000 UNITS/ML 10ML VIAL (FOR RADIOLOGY& DIALYSIS ONLY) IV ONE (12:00)
[2016-10-09] MEDS: levETIRAcetam 250MG TABLET (KEPPRA) PO SCH ×2 (12:42→22:04)
[2016-10-09 12:43] VITALS: BP 138/63
--- NOTE | 2016-10-09 13:26 | IPN ---
DATE OF SERVICE: 10/08/2016 SUBJECTIVE: Patient was seen and examined at the bedside today morning. Patient got right hip surgery, and madison and pin fixation was done. Patient feels much better. His hemoglobin has slightly dropped after surgery. His intravenous (IV) fluids have been stopped. Patient stated eating. He is tolerating the liquid diet at this time. REVIEW OF SYSTEMS: Patient denies any fevers, chills, rigors, headache, nausea, vomiting, chest pain, shortness of breath. He does report some pain in the right hip surgical site. The rest of the review of systems is negative. OBJECTIVE: VITAL SIGNS: Temperature is 96.2 degrees Fahrenheit. Blood pressure is 115/54. Pulse is 64. Respiratory rate of 18. Saturating 96% on room air. INTAKE AND OUTPUT: There is a 200 mL urine output recorded. Weight on the bed scale is 86 kg. PHYSICAL EXAM: GENERAL: Patient is awake, alert, and oriented times three, laying in bed, no apparent distress. HEAD AND NECK EXAM: Extraocular muscles intact. Pupils equally round and reactive to light. Neck is supple. There is no jugular venous distention (JVD). CARDIOVASCULAR: S1, S2. Irregular rate. No murmur, rub, or gallop. RESPIRATORY: Chest is clear to auscultation bilaterally. Bilateral equal air entry. No rales or rhonchi. ABDOMEN: Is soft. Positive bowel sounds. Nontender. No ascites. No organomegaly. EXTREMITIES: Patient has a dressing on the right hip surgical site. Otherwise. No clubbing or cyanosis. Pulses are 2+. CENTRAL NERVOUS SYSTEM (KEEL PRESS OPERATOR): No focal neurological deficit. Power is 5/5 in all extremities. ARTERIOVENOUS (AV) ACCESS: Patient has a left forearm AV fistula with positive thrill and bruit. LAB REVIEW: CBC showed WBC 5.6, hemoglobin 7.9, platelets are 88. BMP showed sodium 137, potassium 5.1, chloride 98, bicarbonate 31, BUN 38, creatinine 6.6, albumin 3.1. CURRENT MEDICATIONS: Patient's medications were all reviewed by me. His IV fluids have been stopped, and his morphine and oxycodone are being tapered down. There is no other change in the medications at this time. His Coumadin has been restarted at 5 mg by mouth daily. ASSESSMENT: 81-year-old male with past medical history of end-stage renal disease on hemodialysis, atrial fibrillation, hypertension, seizure disorder, hypothyroidism, admitted this time with right hip fracture after a fall, status post right hip surgery, medical affairs leader service following the patient for management of end-stage renal disease. PLAN: 1. End-stage renal disease. Patient will be dialyzed tomorrow according to his regular schedule, nor is there need of hemodialysis today. 2. Right hip fracture. Status post right hip surgery. Rest of the management is as per orthopedics team. 3. Anemia in end-stage renal disease and postoperative. Patient's hemoglobin is less than 8. He will be given 1 unit of packed red blood cells (PRBC) transfusion during hemodialysis tomorrow. 4. Hypertension. Blood pressure is acceptable at this time. Continue current dose of Coreg. 5. Atrial fibrillation. Heart rate is well controlled at this time. Coumadin has been restarted by primary team. The plan of care was discussed with the hospitalist team, Dr. Perry Bragg.
--- NOTE | 2016-10-09 14:04 | IPN ---
DATE: 10/09/2016 Mr. Savage is an 81-year-old gentleman who was admitted to [facility] with right hip fracture secondary to fall at home. He underwent hip surgery and is feeling well. He is being dialyzed this morning. The patient denies any dyspnea, chest pain, nausea or vomiting. PHYSICAL EXAMINATION: He is awake and alert and without any acute distress. Temperature is 96.1 degrees Fahrenheit, heart rate 72 per minute and respiratory rate 20 per minute. Blood pressure 119/58 mmHg and oxygen saturation 93% on room air. His head is atraumatic. Ears, nose and throat are unremarkable. Neck is supple and without any jugular venous distention (JVD) or thyroid enlargement. Pupils are equal and reactive to light and sclera is anicteric. Heart sounds are regular and lungs clear to auscultation bilaterally. Abdomen is soft and nontender and without any palpable organomegaly. Bowel sounds are normal. Extremities have no cyanosis or clubbing. Left forearm AV fistula is functioning very well. His right thigh and hip has significant edema. Surgical dressing is intact. Neurologically, he is awake, alert and oriented times three. He has no focal deficit. Skin has no rash or ulcers. Today's labs show WBC count 5.8, hemoglobin 7.1 and hematocrit 20.9. Platelets are 90,000. Sodium 137 and potassium 5.0. BUN 48 and creatinine 8.13. Calcium level is 9.0 and phosphorus 6.2. PROBLEMS: 1. Right hip fracture. The patient is status post open reduction, internal fixation (ORIF). He is doing very well and has started physical therapy. The patient is also on Coumadin and his INR today is 1.14. His pain is well-controlled. 2. End-stage renal disease. The patient is due for hemodialysis today and he is currently being dialyzed. We will dialyze him for 3 hours. Only minimal amount of heparin is being used. One liter of fluid is removed, and the patient is tolerating dialysis treatment very well. 3. Acute blood loss anemia. The patient has acute blood loss due to his right hip fracture and surgery. He is being transfused to 2 units of packed red blood cells during dialysis today. The patient has already consented for transfusion. 4. Hyperphosphatemia. This is likely to improve with hemodialysis today. His phosphorus level will be checked again. At present, he is already on Renvela 1600 mg three times a day with meals, which will be continued.
[2016-10-09 16:00] VITALS: BP 141/53
[2016-10-09] MEDS: SIMVASTATIN 40 MG TAB PO SCH (17:35)
[2016-10-09 18:34] VITALS: BP 142/65
[2016-10-09 22:00] VITALS: BP 135/64
[2016-10-09] MEDS ORDERED: WARFARIN SOD 5 MG TAB PO ONE (22:00)
[2016-10-09] MEDS: SINEMET 10-100 MG TAB PO SCH (22:04)
[2016-10-09] MEDS: DOXAZOSIN MESYLATE 4 MG TAB PO SCH (22:04)
[2016-10-09] MEDS: LATANOPROST 0.005% OPHTH SOLN 2.5 ML OU SCH (22:05)
--- NOTE | 2016-10-09 22:18 | IPNPDOC ---
Assessment/Plan Date Seen The patient was seen on 10/09/16. Problems Problems: (1) Fracture of right hip Status: Acute Response to Treatment: Stable Problem Text: s/p surgery continue PT, pain control (2) Atrial fibrillation Status: Chronic Response to Treatment: Stable Problem Text: Pt. is currently rate controlled continue coreg and coumadin (3) HTN (hypertension) Status: Chronic Response to Treatment: Stable Problem Text: patients BP is currently stable will continue to monitor (4) DVT prophylaxis Status: Acute Problem Text: coumadin Plan / VTE VTE Prophylaxis Ordered?: Yes Subjective Review of Systems CC/HPI The patient is a 81-year-old male admitted with a reason for visit of Right Hip Fracture. Events since last encounter pt seen and examined, doing well, Constitutional: Denies: Chills, Fever, Malaise, Night Sweats, Weakness Gastrointestinal: Denies: Abdominal Pain, Diarrhea, Nausea, Vomiting Genitourinary: Denies: Dysuria, Frequency, Incontinence, Retention Objective Physical Examination General Exam: Positive: Alert, Cooperative, Mild Distress Eye Exam: Positive: Conjunctiva & lids normal, EOMI, PERRLA, Negative: Ptosis, Sclera icteric ENT Exam: Positive: Atraumatic, Mucous membr. moist/pink, Nares Patent, Pharynx Normal, Tongue Midline, Negative: Pharyngeal Edema Neck Exam: Positive: Supple Chest Exam: Positive: Clear to auscultation, Normal air movement, Negative: Rales, Rhonchi, Wheezing Heart Exam: Positive: Normal S1, Normal S2, Tachycardic, Negative: Murmurs Telemetry: Positive: Atrial fibrillation Abdomen Exam: Positive: Normal bowel sounds, Soft, Negative: Hepatospenomegaly, Mass, Tenderness Extremity Exam: Positive: Tenderness (right hip groin area), Negative: Swelling Skin Exam: Positive: Nl turgor and temperature Psych Exam: Positive: Mental status NL Vital Signs/I&O Vital Signs Date Time Temp Pulse Resp B/P Pulse Ox O2 Delivery O2 Flow Rate FiO2 10/09/16 18:34 98.2 89 20 142/65 99 Room Air I&O- Last 24 Hours up to 6 AM 10/09/16 06:00 Intake Total 360 ml Output Total 50 ml Balance 310 ml Laboratory Data Labs 24H Laboratory Tests 2 10/09/16 05:28: Albumin 2.8L, Blood Urea Nitrogen 48H, Creatinine 8.13H, Sodium Level 137, Potassium Level 5.0, Chloride Level 96L, Carbon Dioxide Level 32, Anion Gap 9, Calcium Level 9.0, Glomerular Filtration Rate 6.8L, Phosphorus Level 6.2H, Prothromb Time International Ratio 1.14, Prothrombin Time 14.7H CBC/BMP Laboratory Tests 10/09/16 05:28 Anion Gap 9, Red Blood Count 1.90 L, Mean Corpuscular Volume 110.4 H, Mean Corpuscular Hemoglobin 37.3 H, Mean Corpuscular Hemoglobin Concent 33.8, Red Cell Distribution Width 13.6 MAYE MITCHELL DO Oct 09, 2016 22:18
[2016-10-10] MEDS: CARVedilol 3.125 MG TAB PO SCH ×3 (00:11→12:17)
[2016-10-10] MEDS: LEVOTHYROXINE 0.1 MG TAB (100 MCG) PO SCH (05:28)
[2016-10-10 06:00] VITALS: BP 114/59
[2016-10-10 06:53] LABS: INR 1.19
[2016-10-10 06:55] LABS: MEAN CORPUSCULAR HEMOGLOBIN 35.7 pg (27.0-33.0); MEAN CORPUSCULAR HGB CONC 34.3 g/dl (32.0-36.5); RED CELL DISTRIBUTION WIDTH 18.2 % (11.5-14.5)
[2016-10-10 07:04] LABS: MEAN CORPUSCULAR VOLUME 103.9 fl (80.0-96.0)
[2016-10-10 07:14] LABS: ALBUMIN 2.7 GM/DL (3.2-5.2); CALCIUM LEVEL 9.4 MG/DL (8.8-10.2); CREATININE FOR GFR 5.6 MG/DL (0.70-1.30); GLOMERULAR FILTRATION RATE 10.4 (>35); PHOSPHORUS LEVEL 4.7 MG/DL (2.5-4.9); POTASSIUM SERUM 4.4 MEQ/L (3.5-5.1)
--- NOTE | 2016-10-10 08:43 | ECGEPIP ---
Stationary ECG Study [facility] Test Date: 2016-10-08 Pat Name: JULIO PENNY Department: Room: W6112-34 Gender: M Prototype Machinist: EDWINA : [id number] Requested By: Angie Prescott Order Number: [id number] Reading MD: David Camacho Measurements Intervals [place] Rate: 88 P: AR: 0 QRS: 30 QRSD: 95 T: 1 QT: 350 QTc: 425 Interpretive Statements ATRIAL FIBRILLATION LOW QRS VOLTAGE IN EXTREMITY LEADS No significant change when compared to prior tracing of 10-07-2016 Electronically Signed On 10-10-2016 8:43:38 EST by David Camacho
[2016-10-10] MEDS: (RENVELA) SEVELAMER **CARBONate** 800 MG TAB PO SCH ×2 (09:21→12:16)
[2016-10-10] MEDS: MIRALAX *UNIT DOSE* 17GM PACKET PO SCH (09:21)
[2016-10-10] MEDS: NEPHRO-VIT TAB (NEPHROCAPS) PO SCH (09:22)
[2016-10-10] MEDS: FUROSEMIDE 80 MG TAB PO SCH (09:22)
[2016-10-10] MEDS: DOCUSATE SODIUM 100 MG CAP PO SCH (09:22)
[2016-10-10] MEDS: ALLOPURINOL 300 MG TAB PO SCH (09:22)
[2016-10-10] MEDS: levETIRAcetam 250MG TABLET (KEPPRA) PO SCH (12:16)
[2016-10-10 12:17] VITALS: BP 110/55
--- NOTE | 2016-10-10 13:09 | IPNPDOC ---
Date of Service/Time 10/10/2016 Progress Note DATE OF ENCOUNTER: 10/10/2016 SUBJECTIVE: Mr. Savage was seen this morning at bedside. No acute overnight issues. Patient had hemodialysis yesterday and tolerated it well. He denied any lightheadedness or dizziness after hemodialysis. He states that he is feeling well today. No chest pain or shortness of breath. No nausea, vomiting, abdominal pain or diarrhea. No fevers or chills. OBJECTIVE: Vital signs: Vital signs: Temperature 97.1, pulse 70, respiratory rate 18, blood pressure 114/59, pulse ox 93% on CPAP. Total negative balance of 440 mL in previous 24 hours. Current weight increased to 85.80kg. General: Patient is awake and alert. In no acute distress. HEENT: Normocephalic, atraumatic. Extraocular muscles are intact. Moist mucosa. Neck: Supple. No jugular venous distension appreciated. Heart: Normal S1, S2. Regular rate and rhythm. No murmur appreciated. Lungs: Clear to auscultation bilaterally. No rales rhonchi or wheezing. Abdomen: Soft, nontender, nondistended. Positive bowel sounds. No organomegaly appreciated Extremities: Right hip area has some swelling. Post op dressing in place. No cyanosis. Positive pedal pulses bilaterally. Neurologic: No focal deficits. LABORATORY DATA: Anion Gap 10, Red Blood Count 2.47 L, Mean Corpuscular Volume 103.9 #H, Mean Corpuscular Hemoglobin 35.7 H, Mean Corpuscular Hemoglobin Concentration 34.3, Red Cell Distribution Width 18.2 H, Albumin 2.7L, Calcium Level 9.4, Phosphorus Level 4.7, Prothromb Time International Ratio 1.19, Prothrombin Time 15.2H ASSESSMENT AND PLAN: 1. End-stage renal disease. The patient had hemodialysis which she tolerated well. Continue with normal schedule of Sunday, Sunday and Fridays. 2. Right hip fracture from fall. The patient is status post open reduction, internal fixation (ORIF) on 10/07. Pain is controlling he is undergoing physical therapy. He is doing very well and has started physical therapy. 3. Acute blood loss anemia. The patient has acute blood loss due to his right hip fracture surgery. He received 2 units of packed red blood cells during dialysis on 10/09. Hemoglobin is currently stable at 8.8. 4. Hyperphosphatemia, resolved with hemodialysis. Continue Renvela 1600 mg three times a day. GME ATTESTATION GME ATTESTATION My preceptor for this patient encounter was physically present in the building during the encounter and was fully available. As needed, all aspects of the patient interview, examination, medical decision making process, and medical care plan development were reviewed and approved by the preceptor. Preceptor is aware and concurs with the plan as stated in the body of this note and will attest to such by his/her cosignature. LAKESHIA AGRAWAL DO Oct 10, 2016 13:09
[2016-10-10 14:00] VITALS: BP 127/59
[2016-10-10] MEDS ORDERED: COUM1TAB17 PO (14:59)
[2016-10-10] MEDS ORDERED: WARFARIN SOD 5 MG TAB PO SCH (17:00)
--- NOTE | 2016-10-10 17:58 | DS.PDOC ---
Discharge Summary General Date of Admission Oct 06, 2016 at 16:26 Date of Discharge Oct 10, 2016 at 16:52 Specialist/Consultants Involve Dr. Smith of Nephrology, Dr. Prescott of Cardiology, Dr. Capps of Orthopedic Surgery Discharge Summary PROCEDURES PERFORMED DURING STAY: Right hip open reduction internal fixation. COMPLICATIONS/CHIEF COMPLAINT: Right Hip Fracture ADMISSION DIAGNOSES: 1. . Right hip fracture 2. . Atrial fibrillation on Coumadin DISCHARGE DIAGNOSES: 1. . Right hip fracture status post open reduction internal fixation 2. . Atrial fibrillation on Coumadin HISTORY OF PRESENT ILLNESS: 81-year-old male with past medical history of atrial fibrillation on Coumadin, end-stage renal disease on hemodialysis, hypertension, seizure disorder, recent history of subarachnoid hemorrhage following a fall presented to the ER after he fell from the ladder and hurt his right hip. Of note, the patient did have a subarachnoid hemorrhage on 08/07/2016 after a fall for which he was evaluated for at [facility] [place], and his anticoagulation was stopped. He was already seen in follow-up and instructed to restart the Coumadin however before he could do so he fell from a ladder and broke his hip. Given his history of atrial fibrillation on Coumadin and his recent fall for which Coumadin was previously being held, cardiology was consulted regarding preoperative clearance. The patient was subsequently cleared by cardiology for an open reduction internal fixation of the right hip. Since then, the patient has been feeling well and his Coumadin therapy has been restarted as per Cardiology recommendations. The patient was seen by physical therapy and they recommended rehabilitation. The patient has been transferred to the acute inpatient rehabilitation unit at [facility]. At this time, the patient's INR levels remain subtherapeutic and he will need to continue on Coumadin 5 mg daily. He will need his INR levels checked at the rehabilitation facility and monitored for further dose titration. DISCHARGE MEDICATIONS: Please see below. ALLERGIES: Please see below. PHYSICAL EXAMINATION ON DISCHARGE: VITAL SIGNS: Please see below. GENERAL: No acute distress HEENT: Atraumatic NECK: No JVD CARDIOVASCULAR EXAMINATION: Normal rate, normal S1, S2 RESPIRATORY EXAMINATION: Clear to auscultation bilaterally ABDOMINAL EXAMINATION: Soft, nontender nondistended EXTREMITIES: Right hip with limited range of motion on flexion and extension secondary to recent surgery. Surgical dressing noted with no breakthrough bleeding or drainage noted. LABORATORY DATA: Please see below. IMAGING: Right hip series: Portable cross-table lateral two views. History: Fracture, portable cross-table lateral requested. No comparison views. Findings: Two portable cross-table lateral views of the right hip demonstrate evidence of a fracture in the intertrochanteric region. No significant displacement. Vascular calcification is noted. This should be correlated with frontal views. VTE Prophylaxis ordered?: Yes DISCHARGE CONDITION: Medically stable DISPOSITION: 01 Home, Self-Care ACTIVITY: As tolerated, and deemed safe by the rehabilitation staff DIET: 2 g low sodium diet ITEMS TO FOLLOWUP ON OUTPATIENT: 1. . The patient will need his INR level checked every 2 days until it is therapeutic 2. . Follow-up with primary care physician in one to 2 weeks DISCHARGE PLAN AND INSTRUCTIONS: 1. . As noted above, the patient will need his INR level checked every 2 days, and Coumadin doses to be adjusted accordingly. 2. . Follow-up with his primary care physician for further evaluation and management. 3. . Follow-up with orthopedic surgery within 1 month. TIME SPENT ON DISCHARGE: Greater than 30 minutes. Vital Signs/I&Os Vital Signs Date Time Temp Pulse Resp B/P Pulse Ox O2 Delivery O2 Flow Rate FiO2 10/10/16 14:00 97.6 77 20 127/59 93 Room Air I&O- Last 24 Hours up to 6 AM 10/10/16 06:00 Intake Total 1220 ml Output Total 1375 ml Balance -155 ml Laboratory Data Labs 24H Laboratory Tests 2 10/10/16 05:58: Albumin 2.7L, Blood Urea Nitrogen 36H, Creatinine 5.60H, Sodium Level 142, Potassium Level 4.4, Chloride Level 100, Carbon Dioxide Level 32, Anion Gap 10, Calcium Level 9.4, Glomerular Filtration Rate 10.4L, Phosphorus Level 4.7#, Prothromb Time International Ratio 1.19, Prothrombin Time 15.2H CBC/BMP Laboratory Tests 10/10/16 05:58 Anion Gap 10, Red Blood Count 2.47 L, Mean Corpuscular Volume 103.9 #H, Mean Corpuscular Hemoglobin 35.7 H, Mean Corpuscular Hemoglobin Concent 34.3, Red Cell Distribution Width 18.2 H Medications Scheduled (Antoinette-Annie Rx 1 mg) 1 Tab Tab 1 TAB PO DAILY Allopurinol (Zyloprim) 300 Mg Tab 300 MG PO DAILY Carbidopa/Levodopa (Carbidopa/Levodopa 10-100 mg) 1 Tab Tab 1 TAB PO QHS Carvedilol (Carvedilol) 6.25 Mg Tab 6.25 MG PO BID SEE COMMENTS Doxazosin Mesylate (Doxazosin) 8 Mg Tab 8 MG PO QHS Furosemide (Furosemide) 80 Mg Tab 80 MG PO DAILY Latanoprost (Latanoprost) 50 Drop/2.5 Ml Soln 1 DROP OU QHS Levetiracetam (Keppra) 500 Mg Tab 500 MG PO BID NOON AND BEDTIME Levothyroxine Sodium (Synthroid) 200 Mcg Tab 200 MCG PO DAILY Lovastatin (Lovastatin) 40 Mg Tab 40 MG PO QPM DINNERTIME Sevelamer Carbonate (Renvela) 800 Mg Tab 1,600 MG PO WM Timolol Maleate (Timolol Maleate 0.5% Opth GFS) 100 Drop/5 Ml Gel 1 DROP OU DAILY Warfarin Sod (Coumadin) 5 Mg Tab 5 MG PO DAILY@17 Scheduled PRN Hydroxyzine HCl (Hydroxyzine HCl) 25 Mg Tab 25 MG PO TID PRN PRN ANXIETY Allergies Coded Allergies: Penicillins (Unverified Allergy, Intermediate, HIVES, 10/06/16) CALI NAVAS MD Oct 10, 2016 17:58
== END 2016-10-10 16:52 | disposition home or self-care (01) | DRG 480 ==
LOC: M PCU 16:26 → M MSPAV 10-09 18:32
PROVIDERS: ADMIT Hospitalist; ATTEND Internal Medicine
PROC: 0QS604Z Reposition Right Upper Femur with Internal Fixation Device, Open Approach (ICD-10-PCS; principal; 2016-10-07 11:27)
PROC: 5A1D00Z (ICD-10-PCS; 2016-10-09)
PROC: 30233N1 Transfusion of Nonautologous Red Blood Cells into Peripheral Vein, Percutaneous Approach (ICD-10-PCS; 2016-10-09)
DX: S72.141A Displaced intertrochanteric fracture of right femur, initial encounter for closed fracture (principal); N18.6 End stage renal disease; D62 Acute posthemorrhagic anemia; I12.0 Hypertensive chronic kidney disease with stage 5 chronic kidney disease or end stage renal disease; I48.91 Unspecified atrial fibrillation; M16.11 Unilateral primary osteoarthritis, right hip; G40.909 Epilepsy, unspecified, not intractable, without status epilepticus; E03.9 Hypothyroidism, unspecified; D63.1 Anemia in chronic kidney disease; M1A.30X0 Chronic gout due to renal impairment, unspecified site, without tophus (tophi); Z79.01 Long term (current) use of anticoagulants; Z99.2 Dependence on renal dialysis; Z88.0 Allergy status to penicillin; Z79.899 Other long term (current) drug therapy; Z86.79 Personal history of other diseases of the circulatory system; W11.XXXA Fall on and from ladder, initial encounter; Y92.019 Unspecified place in single-family (private) house as the place of occurrence of the external cause; Y93.H9 Activity, other involving exterior property and land maintenance, building and construction; Y99.9 Unspecified external cause status; Z86.73 Personal history of transient ischemic attack (TIA), and cerebral infarction without residual deficits; Z96.651 Presence of right artificial knee joint; Z96.652 Presence of left artificial knee joint; Z87.891 Personal history of nicotine dependence

== ENCOUNTER 2016-10-10 15:06 | Inpatient (IN) | payer MEDICARE, BC, OTHER ==
[~2016-10-10] VITALS: Ht 177.8 cm; Wt 74.6 kg
[~2016-10-10 15:06] MED LIST: CARB10TA2 PO; CARV6.25 PO; COUM1TAB17 PO; DOXA1TAB73 PO; FURO1TAB15 PO; HYDR25T PO; KEPP500T6 PO; LATA5OPD OU; LEVO200T4 PO; LOVA40TA PO; RENATAB6 PO; RENV2TAB PO; TIMO5OPG OU; ZYLO300T4 PO
[2016-10-10] MEDS ORDERED: NORCO, ANEXSIA 5/325MG TABLET (HYDROcodone/ACETAMINOPHEN) PO PRN (15:45)
[2016-10-10] MEDS ORDERED: hydrOXYzine 25 MG TAB PO PRN (16:00)
[2016-10-10 17:00] VITALS: BP 140/61
--- NOTE | 2016-10-10 17:28 | HPEPDOC ---
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 Thereve been no significant changes in the patients condition since the preadmission screening. HISTORY OF PRESENT ILLNESS: Patient is an 81-year-old gentleman with a history of multiple medical comorbidities including atrial fibrillation, end-stage renal disease on hemodialysis 3 times a week and subarachnoid hemorrhage in August 2016 with subsequent episodes of seizures who sustained a mechanical fall in his home on 10/06/2016. Patient was helping his put away [employer] decorations on a stepladder, lost his balance and subsequently fell onto his right side. He was unable to get up from the floor. Patients called emergency medical services and patient was brought to [facility] where he was found to have a right displaced intertrochanteric proximal femur fracture. After medical clearance, he underwent an ORIF with short gamma nail on 10/07/[address] Reji Capps. Due to decline in the patients baseline functional status and need for continued medical care, recommendation was for acute rehabilitation. On 10/10/2016 the patient was deemed stable for discharge to [facility] inpatient rehabilitation unit. On exam today, the patient reports feeling fatigued, but otherwise feels okay. He reports right hip pain, constant achy in nature, worse with any movement, better with rest. PAST MEDICAL HISTORY: Hypertension Atrial fibrillation fibrillation (usually on Coumadin, but not restarted since his subarachnoid hemorrhage in August 2016) End-stage renal disease on hemodialysis 3 times a week Subarachnoid hemorrhage in August 2016 secondary to a fall. Two seizures in August 2016 that he reports were during dialysis. PAST SURGICAL HISTORY: Bilateral knee replacements Tonsillectomy ALLERGIES: Penicillin MEDICATIONS: Lasix 80 mg daily Sinemet 10/100 1 tab by mouth daily at bedtime vitamin B complex/C/folic acid one tab by mouth daily Allopurinol 300 mg daily Cardura 8 mg by mouth daily at bedtime Keppra 500 mg by mouth twice a day Renvela 1600 mg by mouth with meals MiraLAX 1 packet by mouth daily Percocet 1 tab every 4 hours when necessary pain Timoptic 0.5% 1 drop both eyes daily Synthroid 0.2 mg daily Xalatan 0.005% one drop both eyes daily at bedtime Keppra 500 mg by mouth twice a day Zocor 40 mg by mouth every afternoon Colace 100 mg by mouth twice a day Vistaril 25 mg by mouth 3 times a day when necessary anxiety Acetaminophen 650 mg by mouth every 4 hours as needed Zofran 4 mg every 6 hours when necessary as needed for nausea FAMILY HISTORY: Both his parents at 65, father from lung cancer, mother from a stroke SOCIAL HISTORY: Patient lives with his in a one-story home, no steps to enter. Ports a remote history of cigar smoking but quit in the . He reports occasional alcoholic drink 1-2 times per month. He denies any illicit drug use, past or present. Review of Systems: General: no chills, +fatigue, no weight changes. Eyes: no change of vision. Ears, Nose & Throat: no sore throat, +decreased hearing, no nasal discharge. Cardiovascular: no chest pain, claudication, LL edema, syncopal episodes. Pul: no cough, SOB. GI: no abdominal pain, GERD, N/V, has not have had a bowel movement since being in the hospital, but denies any feelings of constipation. Genitourinary: Urinates occasionally, denies dysuria. Musculoskeletal: no back/neck/joint pain except for right hip pain, no muscle pain. Neurological: Denies numbness, paresthesias, no progressive weakness, KRISHNAN. Hematological: No bleeding disorders. Skin: no rashes. Psychiatric: no depression, or behavioral issues. VITAL SIGNS: Temperature 97.6F, pulse 77, respiratory rate of 20, blood pressure 127/59, 93% saturation on room air PHYSICAL EXAMINATION: GENERAL: Well nourished, well developed, sitting up in bed, no acute distress. HEENT: Normocephalic, atraumatic. No facial droop. PERRL, EOMI CARDIOVASCULAR: S1, S2, irregular rate. No bilateral pedal edema or calf tenderness LUNGS: Clear to auscultation bilaterally no wheezing rhonchi or rales ABDOMEN: Soft, nontender, nondistended. Positive normoactive bowel sounds throughout. MUSCULOSKELETAL: Well-healed bilateral surgical scars on his knees. Manual muscle testin/5 strength bilateral upper limbs in all major muscle groups. 1 /5 right hip flexors, 4/5 right knee extension flexion, 5/5 right dorsiflexion, plantar flexion and EHL. 5/5 left hip flexors, left knee extension, flexion, dorsiflexion, plantar flexion and EHL. Sensation: Intact to soft touch bilateral upper and lower limbs. Deep tendon reflexes: Unable to elicit patellar biceps bilaterally NEUROLOGICAL: Alert and oriented x 3. Answers all questions appropriately. Memory seems intact. Able to follow commands without difficulty. SKIN: Right lateral hip and thigh surgical site with dressing. LABORATORY DATA: 10/10/2016: Hemoglobin 8.8, hematocrit 25.6, WBC 5.0, sodium 142, potassium 4.4 , chloride 100, carbon dioxide 32, BUN 36, creatinine 5.60, GFR 10.4, glucose 100, PT 15.2, INR 1.19. IMAGING: X-ray of the hip 10/07/2015: Right displaced intertrochanteric proximal femur fracture. FUNCTIONAL STATUS Premorbid: Independent with ADLs and ambulation ACTIVITY LIMITATIONS ON ADMISSION: 1. Difficulty with self-care. 2. Difficulty with mobility. PARTICIPATION LIMITATIONS ON ADMISSION: 1. Threatened discharge to home. 2. Threatened independence. 3. Threatened community access. ASSESSMENT AND PLAN: 1. Displaced intertrochanteric proximal femur fracture status post ORIF now with gait abnormality and dysfunctional ADLs: Patient is partial weightbearing on the right lower limb. He will undergo thorough physical and occupational therapy evaluations followed by daily intensive therapy. Activity modification to allow for hemodialysis 3 times per week. Rehabilitation nursing for bladder, bowel, medication management and wound care. 2. Anemia acute blood loss confounded by chronic kidney disease: Patient is status post postop blood transfusion on all 10/09/2016 with appropriate rise in his hemoglobin. Will monitor hemoglobin on dialysis days with repeat transfusion if needed. 3. End-stage renal disease on hemodialysis: As above activity modification of his therapy schedule to allow for hemodialysis 3 times per week. Treatment recommendations will be per the nephrology service. 4. Atrial fibrillation: Patient has been resumed on Coumadin for DVT prophylaxis. Will clarify with orthopedic service regarding ongoing dosing given that he is now on Coumadin for dual purpose. 5. Constipation: Will place patient on a bowel regimen to include Colace and senna scheduled along with milk of magnesia and MiraLAX on an as-needed basis. Additional cathartics as needed. 6. Pain: Will continue patient on acetaminophen and Percocet on an as-needed basis. Adjustments as needed. Well also provide patient with intermittent nice to the right hip. 7. Diet/nutrition: Will maintain patient on a regular diet. Well obtain a prealbumin with morning labs. Nutritional supplements as indicated. POST ADMISSION PHYSICIAN EVALUATION: On evaluation of the patient today there' ve been no significant medical issues or functional changes as compared to those noted in the preadmission screening document. This patient's inpatient rehabilitation remains necessary in light of the above conditions. The patient' s medical condition requires specialized care with physicians specially trained in physical medicine rehabilitation. The patient is capable motivated to participate in a minimum of 3 hours of therapy daily, 5 days minimum per week, and requires intensive inpatient rehabilitation to improve their functional status so that they can be safely to discharge back to their home. PROGNOSIS: Good ESTIMATED LENGTH OF STAY: 14 days. / Vital Signs Vital Sign - Last 24 Hours 10/10/16 17:00 Temp 96.9 Pulse 84 Resp 18 B/P 140/61 Pulse Ox 97 O2 Delivery Room Air Home Medications Scheduled (Antoinette-Annie Rx 1 mg) 1 Tab Tab 1 TAB PO DAILY (Reported) Allopurinol (Zyloprim) 300 Mg Tab 300 MG PO DAILY (Reported) Carbidopa/Levodopa (Carbidopa/Levodopa 10-100 mg) 1 Tab Tab 1 TAB PO QHS ( Reported) Carvedilol (Carvedilol) 6.25 Mg Tab 6.25 MG PO BID (Reported) SEE COMMENTS Doxazosin Mesylate (Doxazosin) 8 Mg Tab 8 MG PO QHS (Reported) Furosemide (Furosemide) 80 Mg Tab 80 MG PO DAILY (Reported) Latanoprost (Latanoprost) 50 Drop/2.5 Ml Soln 1 DROP OU QHS (Reported) Levetiracetam (Keppra) 500 Mg Tab 500 MG PO BID (Reported) NOON AND BEDTIME Levothyroxine Sodium (Synthroid) 200 Mcg Tab 200 MCG PO DAILY (Reported) Lovastatin (Lovastatin) 40 Mg Tab 40 MG PO QPM (Reported) DINNERTIME Sevelamer Carbonate (Renvela) 800 Mg Tab 1,600 MG PO WM (Reported) Timolol Maleate (Timolol Maleate 0.5% Opth GFS) 100 Drop/5 Ml Gel 1 DROP OU DAILY (Reported) Warfarin Sod (Coumadin) 5 Mg Tab 5 MG PO DAILY@17 Scheduled PRN Hydroxyzine HCl (Hydroxyzine HCl) 25 Mg Tab 25 MG PO TID PRN PRN ANXIETY ( Reported) Allergies Coded Allergies: Penicillins (Unverified Allergy, Intermediate, HIVES, 10/06/16) JENNIFER HAMPTON MD Oct 10, 2016 17:28
[2016-10-10] MEDS: CARVedilol 3.125 MG TAB PO SCH (18:44)
[2016-10-10] MEDS: WARFARIN SOD 5 MG TAB PO SCH (18:45)
[2016-10-10] MEDS: (RENVELA) SEVELAMER **CARBONate** 800 MG TAB PO SCH (18:45)
[2016-10-10] MEDS: SIMVASTATIN 40 MG TAB PO SCH (18:45)
[2016-10-10 20:00] VITALS: BP 104/54
[2016-10-10] MEDS: DOXAZOSIN MESYLATE 4 MG TAB PO SCH (21:52)
[2016-10-10] MEDS: DOCUSATE SODIUM 100 MG CAP PO SCH (21:53)
[2016-10-10] MEDS: SINEMET 10-100 MG TAB PO SCH (21:53)
[2016-10-10] MEDS: SENNA 8.6 MG TAB (SENOKOT) PO SCH (21:53)
[2016-10-10] MEDS: levETIRAcetam 250MG TABLET (KEPPRA) PO SCH (21:53)
[2016-10-10] MEDS: LATANOPROST 0.005% OPHTH SOLN 2.5 ML OU SCH (21:54)
[2016-10-11] MEDS: CARVedilol 3.125 MG TAB PO SCH ×5 (00:34→23:15)
[2016-10-11 06:00] VITALS: BP 130/56
[2016-10-11] MEDS: LEVOTHYROXINE 0.1 MG TAB (100 MCG) PO SCH (06:21)
[2016-10-11 07:26] LABS: BASO % 0.2 % (0.0-1.0); EOS # 0.2 K/mm3 (0.0-0.50); EOS % 3.5 % (0.0-3.0); LARGE UNSTAINED CELL # 0.1 K/mm3 (0.0-0.4); LARGE UNSTAINED CELL % 2.7 % (0.0-4.0); LYMPH # 0.5 K/mm3 (1.5-4.5); LYMPH % 10.9 % (24.0-44.0); MEAN CORPUSCULAR HEMOGLOBIN 35.7 pg (27.0-33.0); MEAN CORPUSCULAR HGB CONC 33.8 g/dl (32.0-36.5); MEAN CORPUSCULAR VOLUME 105.6 fl (80.0-96.0); MONO # 0.2 K/mm3 (0.0-0.8); MONO % 4.4 % (0.0-5.0); NEUTROPHILS # 3.7 K/mm3 (1.8-7.7); NEUTROPHILS % 78.3 % (36.0-66.0); PLATELET COUNT, AUTOMATED 119 k/mm3 (150-450); RED CELL DISTRIBUTION WIDTH 17.3 % (11.5-14.5); WHITE BLOOD COUNT 4.7 K/mm3 (4.0-10.0)
[2016-10-11 07:31] LABS: INR 1.63
[2016-10-11 07:46] LABS: CALCIUM LEVEL 9.5 MG/DL (8.8-10.2); CREATININE FOR GFR 7.49 MG/DL (0.70-1.30); GLOMERULAR FILTRATION RATE 7.5 (>35); PHOSPHORUS LEVEL 5.2 MG/DL (2.5-4.9); POTASSIUM SERUM 4.7 MEQ/L (3.5-5.1)
[2016-10-11] MEDS: DOCUSATE SODIUM 100 MG CAP PO SCH ×2 (08:33→21:38)
[2016-10-11] MEDS: FUROSEMIDE 80 MG TAB PO SCH (08:33)
[2016-10-11] MEDS: levETIRAcetam 250MG TABLET (KEPPRA) PO SCH ×2 (08:33→21:38)
[2016-10-11] MEDS: (RENVELA) SEVELAMER **CARBONate** 800 MG TAB PO SCH ×3 (08:33→17:57)
[2016-10-11] MEDS: TIMOLOL XE GFS 0.5% OPHTH 5 ML OU SCH (08:33)
[2016-10-11] MEDS: MOM 30ML SUSPENSION UDC PO PRN (08:33)
[2016-10-11] MEDS: MIRALAX *UNIT DOSE* 17GM PACKET PO PRN (08:33)
[2016-10-11] MEDS ORDERED: ALLOPURINOL 300 MG TAB PO SCH (09:00)
[2016-10-11] MEDS ORDERED: DARBEPOETIN 100 MCG/0.5 ML *DIALYSIS* SYRINGE (J0882) IV SCH (10:45)
[2016-10-11] MEDS ORDERED: HEPARIN 1,000 UNITS/ML 10ML VIAL (FOR RADIOLOGY& DIALYSIS ONLY) IV ONE (11:15)
[2016-10-11 11:31] LABS: PERCENT SATURATION 23.6 % (19.7-37.4); URIC ACID 4.2 MG/DL (3.5-7.2)
--- NOTE | 2016-10-11 11:53 | IPN ---
DATE: 10/11/2016 Mr. Savage was initially admitted to the surgical floor due to right hip fracture caused by a fall at home. He underwent open reduction internal fixation (ORIF) and was discharged from the surgical floor yesterday as he is now admitted to the acute rehab floor. The patient receives maintenance hemodialysis three times a week on Sunday, Sunday and Sunday schedule. He did have acute blood loss anemia and received 2 units of packed red blood cells (RBCs) during his last dialysis treatment on 10/09/2016. On review of systems, he denies any fever or chills. There is no dizziness or lightheadedness. Ears, nose and throat are unremarkable. Cardiovascular system is negative for dyspnea or chest pain. Respiratory system is negative for cough or hemoptysis. GI system is negative for nausea, vomiting, diarrhea, melena stools or rectal bleeding. system is negative for dysuria or hematuria. Musculoskeletal system is significant for recent right hip fracture and surgery. He is currently undergoing rehab. Endocrine system is negative for diabetes or thyroid problems. Hematological system is significant for acute blood loss anemia requiring transfusion. He remains on Coumadin for deep vein thrombosis (DVT) prophylaxis. Skin is negative for rash or ulcers. Neurological system is negative for seizures or loss of consciousness. He does have history of recent subdural hematoma due to another fall few months ago. At present, he has been completely asymptomatic. On physical exam, temperature 96.7 degrees Fahrenheit, heart rate 78 per minute and respiratory rate 18 per minute. Blood pressure 110/69 mmHg and oxygen saturation 97% on room air. Head is atraumatic. Pupils are equal and reactive to light and sclera anicteric. Ears, nose and throat are unremarkable. Neck is supple and without any jugular venous distention (JVD) or thyroid enlargement. Trachea is midline. Heart sounds are regular and lungs clear to auscultation. Abdomen soft and nontender and without a palpable organomegaly. Bowel sounds are normal. Extremities have no cyanosis or clubbing. His right thigh is swollen due to recent hip fracture and surgery. He has hematoma in his thigh. There is no peripheral edema. Neurologically, he is awake, alert and oriented times 3. Today's labs show WBC count 4.7, hemoglobin 8.6 and hematocrit 25.6. Platelets 119. Sodium 139 and potassium 4.7. BUN 52 and creatinine 7.49. Calcium level 9.5 and phosphorus 5.2. PROBLEMS: 1. End-stage renal disease. The patient remains on maintenance hemodialysis three times a week. He is going to be dialyzed again later this afternoon. His electrolytes are within normal range and his volume status is well-compensated. We will remove only 1 liter of fluid today. We will give him only 1000 units of heparin during dialysis as the patient is receiving Coumadin and his INR is 1.63. 2. Acute blood loss anemia. The patient was given 2 units of packed RBCs on Sunday and his anemia has improved. We will add iron studies to his lab work from this morning and start Aranesp 100 mcg once a week. 3. History of gout. The patient is asymptomatic and he is currently on allopurinol 300 mg daily. We will check his uric acid level and consider to either stop his allopurinol or cut down the dose due to end-stage renal disease. 4. Hypertension. Volume status and blood pressure are well controlled. The patient remains on low-dose beta paulo therapy.
--- NOTE | 2016-10-11 12:54 | IPNPDOC ---
County Attorney Progress Note PROGRESS NOTE DATE OF ADMISSION: 10/10/2016 DATE OF SERVICE: 10/11/2016 IDENTIFICATION STATEMENT: Patient is an 81-year-old gentleman with a history of multiple medical comorbidities including atrial fibrillation, end-stage renal disease on hemodialysis 3 times a week and subarachnoid hemorrhage in August 2016 with subsequent episodes of seizures who sustained a mechanical fall in his home on 10/06/2016. He was found to have a right displaced intertrochanteric proximal femur fracture. After medical clearance, he underwent an ORIF with short gamma nail on 10/07/[address] Reji Capps. PAST MEDICAL HISTORY: Hypertension Atrial fibrillation fibrillation (usually on Coumadin, but not restarted since his subarachnoid hemorrhage in August 2016) End-stage renal disease on hemodialysis 3 times a week Subarachnoid hemorrhage in August 2016 secondary to a fall. Two seizures in August 2016 that he reports were during dialysis. PAST SURGICAL HISTORY: Bilateral knee replacements Tonsillectomy ALLERGIES: Penicillin MEDICATIONS: Lasix 80 mg daily Sinemet 10/100 1 tab by mouth daily at bedtime vitamin B complex/C/folic acid one tab by mouth daily Allopurinol 300 mg daily Cardura 8 mg by mouth daily at bedtime Keppra 500 mg by mouth twice a day Renvela 1600 mg by mouth with meals MiraLAX 1 packet by mouth daily Percocet 1 tab every 4 hours when necessary pain Timoptic 0.5% 1 drop both eyes daily Synthroid 0.2 mg daily Xalatan 0.005% one drop both eyes daily at bedtime Keppra 500 mg by mouth twice a day Zocor 40 mg by mouth every afternoon Colace 100 mg by mouth twice a day Vistaril 25 mg by mouth 3 times a day when necessary anxiety Acetaminophen 650 mg by mouth every 4 hours as needed SUBJECTIVE: Patient w/o complaints, feel well, slept through the night, pain adequately controlled. Still hasnt had BM. No urination. Denies any CP, SOB, N/ V, lightheadedness. VITAL SIGNS: Temperature 96.7F, pulse 78, respiratory rate of 18, blood pressure 110/69, 97% saturation on room air PHYSICAL EXAMINATION: GENERAL: Well nourished, well developed, sitting up in chair, no acute distress. HEENT: Normocephalic, atraumatic. PERRL, EOMI CARDIOVASCULAR: S1, S2, irregular rate. No bilateral pedal edema or calf tenderness LUNGS: Clear to auscultation bilaterally no wheezing rhonchi or rales ABDOMEN: Soft, nontender, nondistended. Normoactive bowel sounds throughout. MUSCULOSKELETAL: Well-healed bilateral surgical scars on his knees. Manual muscle testin/5 strength bilateral upper limbs in all major muscle groups. 1 /5 right hip flexors, 4/5 right knee extension flexion, 5/5 right dorsiflexion, plantar flexion and EHL. 5/5 left hip flexors, left knee extension, flexion, dorsiflexion, plantar flexion and EHL. NEUROLOGICAL: Alert and oriented x 3. Answers all questions appropriately. Memory intact. Able to follow commands without difficulty. SKIN: Right lateral hip and thigh surgical site with dressing. LABORATORY DATA: 10/11/16: reviewed, see below 10/10/2016: Hemoglobin 8.8, hematocrit 25.6, WBC 5.0, sodium 142, potassium 4.4 , chloride 100, carbon dioxide 32, BUN 36, creatinine 5.60, GFR 10.4, glucose 100, PT 15.2, INR 1.19. IMAGING: X-ray of the hip 10/07/2015: Right displaced intertrochanteric proximal femur fracture. FUNCTIONAL STATUS Premorbid: Independent with ADLs and ambulation ASSESSMENT AND PLAN: 1. Displaced intertrochanteric proximal femur fracture status post ORIF now with gait abnormality and dysfunctional ADLs: Patient is PWB on the right lower limb. Continue daily physical and occupational therapy. Activity modification to allow for hemodialysis 3 times per week. Rehabilitation nursing for bladder, bowel, medication management and wound care. 2. Anemia acute blood loss confounded by chronic kidney disease: Status post postop blood transfusion on 10/09/2016with appropriate rise in his hemoglobin. Hgb ~ stable. 3. End-stage renal disease on hemodialysis: As above, activity modification to allow for hemodialysis 3 times per week. Treatment recommendations will be per the nephrology service. 4. Atrial fibrillation: Patient has been resumed on Coumadin. 5. Constipation: Continue Colace and senna scheduled along with milk of magnesia and MiraLAX on an as-needed basis. Has received both prn meds today. If no BM after dialysis, will add mag citrate. 6. Pain: Adequately controlled. Continue acetaminophen and Percocet on an as- needed basis. Intermittent ice to the right hip. 7. Diet/malnutrition: Maintain patient on a regular diet. Prealbumin low. Added Neprp supplements. / Vital Signs Vital Sign - Last 24 Hours 10/10/16 10/10/16 10/10/16 10/10/16 17:00 18:44 20:00 21:52 Temp 96.9 97.0 Pulse 84 84 66 Resp 18 18 B/P 140/61 140/61 104/54 104/54 Pulse Ox 97 97 O2 Delivery Room Air Room Air 10/11/16 10/11/16 10/11/16 10/11/16 00:34 06:00 06:21 11:52 Temp 96.7 Pulse 89 56 78 78 Resp 18 B/P 106/62 130/56 110/69 110/69 Pulse Ox 97 O2 Delivery Room Air Laboratory Data CBC/BMP Laboratory Tests 10/11/16 07:05 Calcium Level 9.5, Red Blood Count 2.42 L, Mean Corpuscular Volume 105.6 H, Mean Corpuscular Hemoglobin 35.7 H, Mean Corpuscular Hemoglobin Concent 33.8, Red Cell Distribution Width 17.3 H, Neutrophils (%) (Auto) 78.3 H, Lymphocytes ( %) (Auto) 10.9 L, Monocytes (%) (Auto) 4.4, Eosinophils (%) (Auto) 3.5 H, Basophils (%) (Auto) 0.2, Neutrophils # (Auto) 3.7, Lymphocytes # (Auto) 0.5 L, Monocytes # (Auto) 0.2, Eosinophils # (Auto) 0.2, Basophils # (Auto) 0.0 Labs 24H Laboratory Tests 2 10/11/16 07:05: Anion Gap 8, White Blood Count 4.7, Red Blood Count 2.42L, Hemoglobin 8.6L, Hematocrit 25.6L, Mean Corpuscular Volume 105.6H, Mean Corpuscular Hemoglobin 35.7H, Mean Corpuscular Hemoglobin Concent 33.8, Red Cell Distribution Width 17.3H, Platelet Count 119L, Neutrophils (%) (Auto) 78.3H, Lymphocytes (%) (Auto ) 10.9L, Monocytes (%) (Auto) 4.4, Eosinophils (%) (Auto) 3.5H, Basophils (%) ( Auto) 0.2, Neutrophils # (Auto) 3.7, Lymphocytes # (Auto) 0.5L, Monocytes # ( Auto) 0.2, Eosinophils # (Auto) 0.2, Basophils # (Auto) 0.0, Blood Urea Nitrogen 52H, Creatinine 7.49H, Sodium Level 139, Potassium Level 4.7, Chloride Level 99, Carbon Dioxide Level 32, Calcium Level 9.5, Glomerular Filtration Rate 7.5L, Iron Level 35L, Large Unclassified Cells # 0.1, Large Unclassified Cells % 2.7, Phosphorus Level 5.2H, Prealbumin 15.3L, Prothromb Time International Ratio 1.63, Prothrombin Time 19.4H, Total Iron Binding Capacity 148L, Transferrin % Saturation 23.6, Uric Acid 4.2 Allergies Allergies: Coded Allergies: Penicillins (Unverified Allergy, Intermediate, HIVES, 10/06/16) Current Medications Current Medications Current Medications Acetaminophen (Tylenol) 650 mg Q4HP PRN PO MILD PAIN (PS 1-4); Start 10/10/16 at 15:45; Stop 11/09/16 at 15:44 Acetaminophen/ Hydrocodone Bitart ([place], Anexsia 5/325) 1 tab Q4HP PRN PO MODERATE/SEVERE PAIN (PS 5-10); Start 10/10/16 at 15:45; Stop 10/17/16 at 15:44 Allopurinol (Zyloprim) 300 mg DAILY PO Last administered on 10/11/16 08:33; Start 10/11/16 at 09:00; Stop 11/10/16 at 08:59 Carbidopa/Levodopa (Sinemet 10/100) 1 tab QHS PO Last administered on 21:53; Start 10/10/16 at 21:00; Stop 11/09/16 at 20:59 Carvedilol (COReg) 3.125 mg Q6H PO Last administered on 10/11/16 11:52; Start 10/10/16 at 18:00; Stop 11/09/16 at 17:59 Darbepoetin Jin (Aranesp (Dialysis Use)) 100 mcg HD IV ; Start 10/11/16 at 10: 45; Stop 11/10/16 at 10:44 Docusate Sodium (Colace) 100 mg BID PO Last administered on 10/11/16 08:33; Start 10/10/16 at 21:00; Stop 11/09/16 at 20:59 Doxazosin Mesylate (Cardura) 8 mg QHS PO Last administered on 10/10/16 21:52; Start 10/10/16 at 21:00; Stop 11/09/16 at 20:59 Furosemide (Lasix) 80 mg DAILY PO Last administered on 10/11/16 08:33; Start 10/11/16 at 09:00; Stop 11/10/16 at 08:59 Heparin Sodium (Heparin) 1,000 units ONCE ONCE IV ; Start 10/11/16 at 11:15; Stop 10/11/16 at 11:16; Status DC Hydroxyzine HCl (Vistaril) 25 mg TID PRN PO ANXIETY; Start 10/10/16 at 16:00; Stop 11/09/16 at 15:59 Latanoprost (Xalatan 0.005% Op Soln) 1 drop QHS OU Last administered on 21:54; Start 10/10/16 at 21:00; Stop 11/09/16 at 20:59 Levetiracetam (Keppra) 500 mg BID PO Last administered on 10/11/16 08:33; Start 10/10/16 at 21:00; Stop 11/09/16 at 20:59 Levothyroxine Sodium (Synthroid) 0.2 mg DAILY@06 PO Last administered on 06:21; Start 10/11/16 at 06:00; Stop 11/10/16 at 05:59 Magnesium Hydroxide (Milk Of Magnesia) 30 ml DAILYPRN PRN PO CONSTIPATION Last administered on 10/11/16 08:33; Start 10/10/16 at 15:45; Stop 11/09/16 at 15:44 Polyethylene Glycol (Miralax) 1 pkt DAILY PRN PO CONSTIPATION Last administered on 10/11/16 08:33; Start 10/10/16 at 15:45; Stop 11/09/16 at 15:44 Senna (Senokot) 1 tab QHS PO Last administered on 10/10/16 21:53; Start at 21:00; Stop 11/09/16 at 20:59 Sevelamer Carbonate (Renvela) 1,600 mg WM PO Last administered on 10/11/16 11: 51; Start 10/10/16 at 18:00; Stop 11/09/16 at 17:59 Simvastatin (Zocor) 40 mg QPM@18 PO Last administered on 10/10/16 18:45; Start 10/10/16 at 18:00; Stop 11/09/16 at 17:59 Timolol Maleate (Timoptic-Xe 0.5% Oph Gfs) 1 drop DAILY OU Last administered on 10/11/16 08:33; Start 10/11/16 at 09:00; Stop 11/10/16 at 08:59 Vitamin B Complex/ Vit C/Folic Acid (Nephro-Annie Rx) 1 tab QPM PO ; Start at 21:00; Stop 11/10/16 at 20:59 Warfarin Sodium (Coumadin) 5 mg DAILY@17 PO Last administered on 10/10/16 18: 45; Start 10/10/16 at 17:00; Stop 10/17/16 at 16:59 JENNIFER HAMPTON MD Oct 11, 2016 12:54
[2016-10-11] MEDS: SIMVASTATIN 40 MG TAB PO SCH (17:57)
[2016-10-11] MEDS: WARFARIN SOD 5 MG TAB PO SCH (17:58)
[2016-10-11] MEDS: DOXAZOSIN MESYLATE 4 MG TAB PO SCH (21:38)
[2016-10-11] MEDS: LATANOPROST 0.005% OPHTH SOLN 2.5 ML OU SCH (21:38)
[2016-10-11] MEDS: NEPHRO-VIT TAB (NEPHROCAPS) PO SCH (21:38)
[2016-10-11] MEDS: SENNA 8.6 MG TAB (SENOKOT) PO SCH (21:38)
[2016-10-11] MEDS: SINEMET 10-100 MG TAB PO SCH (21:38)
[2016-10-11 22:00] VITALS: BP 121/58
[2016-10-12 06:00] VITALS: BP 152/62
[2016-10-12] MEDS: LEVOTHYROXINE 0.1 MG TAB (100 MCG) PO SCH (06:18)
[2016-10-12] MEDS: CARVedilol 3.125 MG TAB PO SCH ×3 (06:18→17:33)
[2016-10-12] MEDS ORDERED: IRON SUCROSE 100 MG/5 ML INJ (J1756) IV SCH (07:15)
[2016-10-12 07:25] LABS: INR 2.37
[2016-10-12] MEDS: TIMOLOL XE GFS 0.5% OPHTH 5 ML OU SCH (09:04)
[2016-10-12] MEDS: DOCUSATE SODIUM 100 MG CAP PO SCH ×2 (09:05→20:46)
[2016-10-12] MEDS: (RENVELA) SEVELAMER **CARBONate** 800 MG TAB PO SCH ×3 (09:05→17:29)
[2016-10-12] MEDS: levETIRAcetam 250MG TABLET (KEPPRA) PO SCH ×2 (09:06→20:46)
[2016-10-12] MEDS: FUROSEMIDE 80 MG TAB PO SCH (09:06)
[2016-10-12] MEDS ORDERED: MAGNESIUM CITRATE 300 ML BTL PO ONE (10:00)
--- NOTE | 2016-10-12 12:38 | IPNPDOC ---
Special Procedures Nurse Progress Note PROGRESS NOTE DATE OF ADMISSION: 10/10/2016 DATE OF SERVICE: 10/12/2016 IDENTIFICATION STATEMENT: Patient is an 81-year-old gentleman with a history of multiple medical comorbidities including atrial fibrillation, end-stage renal disease on hemodialysis 3 times a week and subarachnoid hemorrhage in August 2016 with subsequent episodes of seizures who sustained a mechanical fall in his home on 10/06/2016. He was found to have a right displaced intertrochanteric proximal femur fracture. After medical clearance, he underwent an ORIF with short gamma nail on 10/07/[address] Reji Capps. PAST MEDICAL HISTORY: Hypertension Atrial fibrillation fibrillation (usually on Coumadin, but not restarted since his subarachnoid hemorrhage in August 2016) End-stage renal disease on hemodialysis 3 times a week Subarachnoid hemorrhage in August 2016 secondary to a fall. Two seizures in August 2016 that he reports were during dialysis. PAST SURGICAL HISTORY: Bilateral knee replacements Tonsillectomy ALLERGIES: Penicillin MEDICATIONS: Lasix 80 mg daily Sinemet 10/100 1 tab by mouth daily at bedtime vitamin B complex/C/folic acid one tab by mouth daily Allopurinol 300 mg daily Cardura 8 mg by mouth daily at bedtime Keppra 500 mg by mouth twice a day Renvela 1600 mg by mouth with meals MiraLAX 1 packet by mouth daily Percocet 1 tab every 4 hours when necessary pain Timoptic 0.5% 1 drop both eyes daily Synthroid 0.2 mg daily Xalatan 0.005% one drop both eyes daily at bedtime Keppra 500 mg by mouth twice a day Zocor 40 mg by mouth every afternoon Colace 100 mg by mouth twice a day Vistaril 25 mg by mouth 3 times a day when necessary anxiety Acetaminophen 650 mg by mouth every 4 hours as needed SUBJECTIVE: No complaints, slept well, no issues, pain adequately controlled. Still hasnt had BM yet. Denies any CP, SOB, N/V, lightheadedness. VITAL SIGNS: Temperature 97.7F, pulse 56, respiratory rate of 19, blood pressure 152/62, 98% saturation on room air PHYSICAL EXAMINATION: GENERAL: Well nourished, well developed, sitting up in chair, no acute distress. HEENT: Normocephalic, atraumatic. PERRL, EOMI CARDIOVASCULAR: S1, S2, irregular rate. No bilateral pedal edema or calf tenderness LUNGS: Clear to auscultation bilaterally no wheezing rhonchi or rales ABDOMEN: Soft, nontender, nondistended. Normoactive bowel sounds throughout. MUSCULOSKELETAL: Well-healed bilateral surgical scars on his knees. Manual muscle testin/5 strength bilateral upper limbs in all major muscle groups. 1 /5 right hip flexors, 4/5 right knee extension flexion, 5/5 right dorsiflexion, plantar flexion and EHL. 5/5 left hip flexors, left knee extension, flexion, dorsiflexion, plantar flexion and EHL. NEUROLOGICAL: Alert and oriented x 3. Answers all questions appropriately. Memory intact. Able to follow commands without difficulty. SKIN: Right lateral hip and thigh surgical site with dressing. LABORATORY DATA: 10/12/16: reviewed, see below 10/10/2016: Hemoglobin 8.8, hematocrit 25.6, WBC 5.0, sodium 142, potassium 4.4 , chloride 100, carbon dioxide 32, BUN 36, creatinine 5.60, GFR 10.4, glucose 100, PT 15.2, INR 1.19. IMAGING: X-ray of the hip 10/07/2015: Right displaced intertrochanteric proximal femur fracture. FUNCTIONAL STATUS, Premorbid: Independent with ADLs and ambulation ASSESSMENT AND PLAN: 1. Displaced intertrochanteric proximal femur fracture status post ORIF now with gait abnormality and dysfunctional ADLs: Patient is PWB on the right lower limb. Patient making progress. Continue daily physical and occupational therapy. Activity modification to allow for hemodialysis 3 times per week. Rehabilitation nursing for bladder, bowel, medication management and wound care. 2. Anemia acute blood loss confounded by chronic kidney disease: Status post postop blood transfusion on 10/09/2016with appropriate rise in his hemoglobin. Hgb ~ stable per yesterdays labs. AM labs. 3. End-stage renal disease on hemodialysis: As above, activity modification to allow for hemodialysis 3 times per week. Treatment recommendations will be per the nephrology service. 4. Atrial fibrillation: Patient has been resumed on Coumadin. 5. Constipation: Persistent despite current meds. Dose mag citrate now. Continue Colace and senna scheduled along with milk of magnesia and MiraLAX on an as-needed basis. 6. Pain: Adequately controlled. Continue acetaminophen and Percocet on an as- needed basis. Intermittent ice to the right hip. 7. Diet/malnutrition: Maintain patient on a regular diet. Prealbumin low. Added Neprp supplements. / Vital Signs Vital Sign - Last 24 Hours 10/11/16 10/11/16 10/11/16 10/11/16 17:58 20:00 21:38 22:00 Temp 98.0 Pulse 76 75 Resp 18 B/P 112/72 151/65 121/58 Pulse Ox 99 O2 Delivery Room Air Room Air 10/11/16 10/12/16 10/12/16 10/12/16 23:15 06:00 06:18 09:00 Temp 97.7 Pulse 71 54 56 Resp 19 B/P 119/59 152/62 152/62 Pulse Ox 98 O2 Delivery Room Air Room Air Laboratory Data Labs 24H Laboratory Tests 2 10/12/16 06:19: Prothromb Time International Ratio 2.37, Prothrombin Time 26.0H Allergies Allergies: Coded Allergies: Penicillins (Unverified Allergy, Intermediate, HIVES, 10/06/16) Current Medications Current Medications Current Medications Acetaminophen (Tylenol) 650 mg Q4HP PRN PO MILD PAIN (PS 1-4); Start 10/10/16 at 15:45; Stop 11/09/16 at 15:44 Acetaminophen/ Hydrocodone Bitart ([place], Anexsia 5/325) 1 tab Q4HP PRN PO MODERATE/SEVERE PAIN (PS 5-10); Start 10/10/16 at 15:45; Stop 10/17/16 at 15:44 Allopurinol (Zyloprim) 300 mg DAILY PO Last administered on 10/11/16 08:33; Start 10/11/16 at 09:00; Stop 10/12/16 at 07:11; Status DC Carbidopa/Levodopa (Sinemet 10/) 1 tab QHS PO Last administered on 21:38; Start 10/10/16 at 21:00; Stop 11/09/16 at 20:59 Carvedilol (COReg) 3.125 mg Q6H PO Last administered on 10/12/16 06:18; Start 10/10/16 at 18:00; Stop 11/09/16 at 17:59 Darbepoetin Jin (Aranesp (Dialysis Use)) 100 mcg HD IV ; Start 10/11/16 at 10: 45; Stop 11/10/16 at 10:44 Docusate Sodium (Colace) 100 mg BID PO Last administered on 10/12/16 09:05; Start 10/10/16 at 21:00; Stop 11/09/16 at 20:59 Doxazosin Mesylate (Cardura) 8 mg QHS PO Last administered on 10/11/16 21:38; Start 10/10/16 at 21:00; Stop 11/09/16 at 20:59 Furosemide (Lasix) 80 mg DAILY PO Last administered on 10/12/16 09:06; Start 10/11/16 at 09:00; Stop 11/10/16 at 08:59 Heparin Sodium (Heparin) 1,000 units ONCE ONCE IV ; Start 10/11/16 at 11:15; Stop 10/11/16 at 11:16; Status DC Hydroxyzine HCl (Vistaril) 25 mg TID PRN PO ANXIETY; Start 10/10/16 at 16:00; Stop 11/09/16 at 15:59 Iron (Venofer) 100 mg HD IV ; Start 10/12/16 at 07:15; Stop 11/11/16 at 07:14 Latanoprost (Xalatan 0.005% Op Soln) 1 drop QHS OU Last administered on 21:38; Start 10/10/16 at 21:00; Stop 11/09/16 at 20:59 Levetiracetam (Keppra) 500 mg BID PO Last administered on 10/12/16 09:06; Start 10/10/16 at 21:00; Stop 11/09/16 at 20:59 Levothyroxine Sodium (Synthroid) 0.2 mg DAILY@06 PO Last administered on 06:18; Start 10/11/16 at 06:00; Stop 11/10/16 at 05:59 Magnesium Hydroxide (Milk Of Magnesia) 30 ml DAILYPRN PRN PO CONSTIPATION Last administered on 10/11/16 08:33; Start 10/10/16 at 15:45; Stop 11/09/16 at 15:44 Magnesium Citrate (Citrate Of Magnesia) 300 ml ONCE ONCE PO Last administered on 10/12/16 10:30; Start 10/12/16 at 10:00; Stop 10/12/16 at 10:05; Status DC Polyethylene Glycol (Miralax) 1 pkt DAILY PRN PO CONSTIPATION Last administered on 10/11/16 08:33; Start 10/10/16 at 15:45; Stop 11/09/16 at 15:44 Senna (Senokot) 1 tab QHS PO Last administered on 10/11/16 21:38; Start at 21:00; Stop 11/09/16 at 20:59 Sevelamer Carbonate (Renvela) 1,600 mg WM PO Last administered on 10/12/16 09: 05; Start 10/10/16 at 18:00; Stop 11/09/16 at 17:59 Simvastatin (Zocor) 40 mg QPM@18 PO Last administered on 10/11/16 17:57; Start 10/10/16 at 18:00; Stop 11/09/16 at 17:59 Timolol Maleate (Timoptic-Xe 0.5% Oph Gfs) 1 drop DAILY OU Last administered on 10/12/16 09:04; Start 10/11/16 at 09:00; Stop 11/10/16 at 08:59 Vitamin B Complex/ Vit C/Folic Acid (Nephro-Annie Rx) 1 tab QPM PO Last administered on 10/11/16 21:38; Start 10/11/16 at 21:00; Stop 11/10/16 at 20:59 Warfarin Sodium (Coumadin) 5 mg DAILY@17 PO Last administered on 10/11/16 17: 58; Start 10/10/16 at 17:00; Stop 10/17/16 at 16:59 JENNIFER HAMPTON MD Oct 12, 2016 12:38
[2016-10-12 14:00] VITALS: BP 110/53
[2016-10-12] MEDS: WARFARIN SOD 5 MG TAB PO SCH (17:29)
[2016-10-12] MEDS: SIMVASTATIN 40 MG TAB PO SCH (17:30)
--- NOTE | 2016-10-12 18:17 | IPNPDOC ---
Date of Service/Time Progress Note DATE OF ENCOUNTER: 10/12/2016 SUBJECTIVE: Mr. Savage was seen this morning at bedside in the acute rehab floor. He was sitting up in the chair getting ready to eat breakfast. He stated that he felt well. No acute overnight issues. Patient had hemodialysis yesterday and tolerated it well. He denied any lightheadedness or dizziness. No chest pain, palpitations or shortness of breath. No nausea, vomiting, abdominal pain or diarrhea. No fevers or chills. Hip pain is well controlled and he has been doing well in physical therapy. OBJECTIVE: Vital Signs Date Time Temp Pulse Resp B/P Pulse Ox O2 Delivery O2 Flow Rate FiO2 10/12/16 17:33 74 116/50 10/12/16 14:00 98.0 16 98 Room Air I&O- Last 24 Hours up to 6 AM 10/12/16 06:00 Intake Total 300 ml Output Total 1000 ml Balance -700 ml General: Patient is awake and alert. In no acute distress. HEENT: Normocephalic, atraumatic. Extraocular muscles are intact. Moist mucosa. Neck: Supple. No jugular venous distension appreciated. Heart: Normal S1, S2. Regular rate and rhythm. No murmur appreciated. Lungs: Clear to auscultation bilaterally. No rales, rhonchi or wheezing. Abdomen: Soft, nontender, nondistended. Positive bowel sounds. No organomegaly appreciated Extremities: Right hip area has some minimal swelling. No cyanosis. Positive pedal pulses bilaterally. Neurologic: No focal deficits. LABORATORY DATA: 10/11/16 07:05 Prothrombin Time International Ratio 2.37, Prothrombin Time 26.0H ASSESSMENT AND PLAN: 1. End-stage renal disease. The patient had hemodialysis yesterday which he tolerated well, 1000ml was removed. Continue with normal schedule of Sunday, Sunday and Fridays. 2. Acute blood loss anemia. The patient has acute blood loss due to his right hip fracture surgery. He received 2 units of packed red blood cells during dialysis on 10/09. Iron level obtained yesterday was low. He also received 100 mg of Venofer and 100 MCG of Aranesp during hemodialysis on 10/11. We will assess his hemoglobin in the morning. 3. Hypertension. Blood pressure is stable. He is on Coreg and Cardura. 4. History of gout. Uric acid level within normal and allopurinol has been discontinued. 5. Hyperphosphatemia. Continue with Renvela 1600 mg by mouth with meals. 6. Right hip fracture from fall. The patient is status post open reduction, internal fixation (ORIF) on 10/07. Pain is controlled and he is undergoing physical therapy. . GME ATTESTATION GME ATTESTATION My preceptor for this patient encounter was physically present in the building during the encounter and was fully available. As needed, all aspects of the patient interview, examination, medical decision making process, and medical care plan development were reviewed and approved by the preceptor. Preceptor is aware and concurs with the plan as stated in the body of this note and will attest to such by his/her cosignature. LAKESHIA AGRAWAL DO Oct 12, 2016 18:17
[2016-10-12 20:00] VITALS: BP 118/56
[2016-10-12] MEDS: DOXAZOSIN MESYLATE 4 MG TAB PO SCH (20:46)
[2016-10-12] MEDS: NEPHRO-VIT TAB (NEPHROCAPS) PO SCH (20:46)
[2016-10-12] MEDS: SENNA 8.6 MG TAB (SENOKOT) PO SCH (20:46)
[2016-10-12] MEDS: SINEMET 10-100 MG TAB PO SCH (20:47)
[2016-10-12] MEDS: LATANOPROST 0.005% OPHTH SOLN 2.5 ML OU SCH (20:47)
[2016-10-13] MEDS: CARVedilol 3.125 MG TAB PO SCH ×5 (00:43→23:47)
[2016-10-13 06:00] VITALS: BP 103/54
[2016-10-13] MEDS: LEVOTHYROXINE 0.1 MG TAB (100 MCG) PO SCH (06:41)
[2016-10-13 07:00] LABS: MEAN CORPUSCULAR HEMOGLOBIN 35.3 pg (27.0-33.0); MEAN CORPUSCULAR HGB CONC 33.3 g/dl (32.0-36.5); MEAN CORPUSCULAR VOLUME 105.9 fl (80.0-96.0); RED CELL DISTRIBUTION WIDTH 16.4 % (11.5-14.5); WHITE BLOOD COUNT 5.3 K/mm3 (4.0-10.0)
[2016-10-13 07:11] LABS: INR 3.24
[2016-10-13 07:17] LABS: CALCIUM LEVEL 9.8 MG/DL (8.8-10.2); CREATININE FOR GFR 6.85 MG/DL (0.70-1.30); GLOMERULAR FILTRATION RATE 8.3 (>35); MAGNESIUM LEVEL 3.3 MG/DL (1.8-2.4); POTASSIUM SERUM 4.3 MEQ/L (3.5-5.1)
[2016-10-13] MEDS: TIMOLOL XE GFS 0.5% OPHTH 5 ML OU SCH (09:20)
[2016-10-13] MEDS: FUROSEMIDE 80 MG TAB PO SCH (09:21)
[2016-10-13] MEDS: DOCUSATE SODIUM 100 MG CAP PO SCH ×2 (09:21→20:34)
[2016-10-13] MEDS: (RENVELA) SEVELAMER **CARBONate** 800 MG TAB PO SCH ×3 (09:21→17:08)
[2016-10-13] MEDS: levETIRAcetam 250MG TABLET (KEPPRA) PO SCH ×2 (09:21→20:35)
--- NOTE | 2016-10-13 10:25 | IPNPDOC ---
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 He was found to have a right displaced intertrochanteric proximal femur fracture. After medical clearance, he underwent an ORIF with short gamma nail on 10/07/[address] Reji Capps. PAST MEDICAL HISTORY: Hypertension Atrial fibrillation fibrillation (usually on Coumadin, but not restarted since his subarachnoid hemorrhage in August 2016) End-stage renal disease on hemodialysis 3 times a week Subarachnoid hemorrhage in August 2016 secondary to a fall. Two seizures in August 2016 that he reports were during dialysis. PAST SURGICAL HISTORY: Bilateral knee replacements Tonsillectomy ALLERGIES: Penicillin MEDICATIONS: Lasix 80 mg daily Sinemet 10/100 1 tab by mouth daily at bedtime vitamin B complex/C/folic acid one tab by mouth daily Allopurinol 300 mg daily Cardura 8 mg by mouth daily at bedtime Keppra 500 mg by mouth twice a day Renvela 1600 mg by mouth with meals MiraLAX 1 packet by mouth daily Percocet 1 tab every 4 hours when necessary pain Timoptic 0.5% 1 drop both eyes daily Synthroid 0.2 mg daily Xalatan 0.005% one drop both eyes daily at bedtime Keppra 500 mg by mouth twice a day Zocor 40 mg by mouth every afternoon Colace 100 mg by mouth twice a day Vistaril 25 mg by mouth 3 times a day when necessary anxiety Acetaminophen 650 mg by mouth every 4 hours as needed SUBJECTIVE: Patient w/o complaints, slept well, no issues, no pain. Had 2 BMs. Denies any CP, SOB, N/V, lightheadedness. VITAL SIGNS: Temperature 96.9F, pulse 55, respiratory rate of 18, blood pressure 118/52, 97% saturation on room air PHYSICAL EXAMINATION: GENERAL: Well nourished, well developed, sitting up in chair, no acute distress. HEENT: Normocephalic, atraumatic. PERRL, EOMI CARDIOVASCULAR: S1, S2, irregular rate. No bilateral pedal edema or calf tenderness LUNGS: Clear to auscultation bilaterally no wheezing rhonchi or rales ABDOMEN: Soft, nontender, nondistended. Normoactive bowel sounds throughout. MUSCULOSKELETAL: Well-healed bilateral surgical scars on his knees. MMT: 5/5 strength bilateral upper limbs in all major muscle groups. 1/5 right hip flexors , 4/5 right knee extension flexion, 5/5 right dorsiflexion, plantar flexion and EHL. 5/5 left hip flexors, left knee extension, flexion, dorsiflexion, plantar flexion and EHL. NEUROLOGICAL: Alert and oriented x 3. Answers all questions appropriately. Memory intact. Able to follow commands without difficulty. SKIN: Right lateral hip and thigh surgical site with dressing. LABORATORY DATA: 10/13/16: reviewed, see below 10/10/2016: Hemoglobin 8.8, hematocrit 25.6, WBC 5.0, sodium 142, potassium 4.4 , chloride 100, carbon dioxide 32, BUN 36, creatinine 5.60, GFR 10.4, glucose 100, PT 15.2, INR 1.19. IMAGING: X-ray of the hip 10/07/2015: Right displaced intertrochanteric proximal femur fracture. FUNCTIONAL STATUS, Premorbid: Independent with ADLs and ambulation ASSESSMENT AND PLAN: 1. Displaced intertrochanteric proximal femur fracture status post ORIF now with gait abnormality and dysfunctional ADLs: Patient is PWB on the right lower limb. Patient continues to make progress. Continue daily physical and occupational therapy. Activity modification to allow for hemodialysis 3 times per week. Rehabilitation nursing for bladder, bowel, medication management and wound care. 2. Anemia acute blood loss confounded by chronic kidney disease: Status post blood transfusion on 10/09/2016with appropriate rise in his hemoglobin. S/p Darbepoitin & Venofer. Hgb ~ stable. 3. End-stage renal disease on hemodialysis: As above, activity modification to allow for hemodialysis 3 times per week, MWF. Treatment recommendations will be per the nephrology service. 4. Atrial fibrillation: Rate controlled. INR supratherapeutic today. Will hold today and reassess in am. 5. Constipation: Resolved. Continue Colace and senna scheduled along with milk of magnesia and MiraLAX on an as-needed basis. 6. Pain: Patient states he does not have any pain. Continue acetaminophen and Percocet on an as-needed basis. Intermittent ice to the right hip. 7. Diet/malnutrition: Maintain patient on a regular diet. Prealbumin low. Continue Nepro supplements. / Vital Signs Vital Sign - Last 24 Hours 10/12/16 10/12/16 10/12/16 10/12/16 12:41 14:00 14:00 17:33 Temp 98.0 Pulse 65 65 74 Resp 16 B/P 130/56 110/53 116/50 Pulse Ox 98 O2 Delivery Room Air Room Air 10/12/16 10/12/16 10/12/16 10/13/16 20:00 20:00 20:46 00:43 Temp 97.8 Pulse 69 71 Resp 18 B/P 118/56 118/56 122/50 Pulse Ox 97 O2 Delivery Room Air Room Air 10/13/16 10/13/16 10/13/16 06:00 06:41 09:46 Temp 96.9 Pulse 51 55 Resp 18 B/P 103/54 118/52 Pulse Ox 97 O2 Delivery Room Air Room Air Laboratory Data CBC/BMP Laboratory Tests 10/13/16 06:42 Calcium Level 9.8, Red Blood Count 2.38 L, Mean Corpuscular Volume 105.9 H, Mean Corpuscular Hemoglobin 35.3 H, Mean Corpuscular Hemoglobin Concent 33.3, Red Cell Distribution Width 16.4 H Labs 24H Laboratory Tests 2 10/13/16 06:42: Anion Gap 7L, Blood Urea Nitrogen 54H, Creatinine 6.85H, Sodium Level 142, Potassium Level 4.3, Chloride Level 102, Carbon Dioxide Level 33H, Calcium Level 9.8, Glomerular Filtration Rate 8.3L, Magnesium Level 3.3H, Phosphorus Level 4.0#, Prothromb Time International Ratio 3.24, Prothrombin Time 33.1H Allergies Allergies: Coded Allergies: Penicillins (Unverified Allergy, Intermediate, HIVES, 10/06/16) Current Medications Current Medications Current Medications Acetaminophen (Tylenol) 650 mg Q4HP PRN PO MILD PAIN (PS 1-4); Start 10/10/16 at 15:45; Stop 11/09/16 at 15:44 Acetaminophen/ Hydrocodone Bitart (Tatum, Anexsia 5/325) 1 tab Q4HP PRN PO MODERATE/SEVERE PAIN (PS 5-10); Start 10/10/16 at 15:45; Stop 10/17/16 at 15:44 Allopurinol (Zyloprim) 300 mg DAILY PO Last administered on 10/11/16 08:33; Start 10/11/16 at 09:00; Stop 10/12/16 at 07:11; Status DC Carbidopa/Levodopa (Sinemet 10) 1 tab QHS PO Last administered on 20:47; Start 10/10/16 at 21:00; Stop 11/09/16 at 20:59 Carvedilol (COReg) 3.125 mg Q6H PO Last administered on 10/13/16 06:41; Start 10/10/16 at 18:00; Stop 11/09/16 at 17:59 Darbepoetin Jin (Aranesp (Dialysis Use)) 100 mcg HD IV ; Start 10/11/16 at 10: 45; Stop 11/10/16 at 10:44 Docusate Sodium (Colace) 100 mg BID PO Last administered on 10/13/16 09:21; Start 10/10/16 at 21:00; Stop 11/09/16 at 20:59 Doxazosin Mesylate (Cardura) 8 mg QHS PO Last administered on 10/12/16 20:46; Start 10/10/16 at 21:00; Stop 11/09/16 at 20:59 Furosemide (Lasix) 80 mg DAILY PO Last administered on 10/13/16 09:21; Start 10/11/16 at 09:00; Stop 11/10/16 at 08:59 Heparin Sodium (Heparin) 1,000 units ONCE ONCE IV ; Start 10/11/16 at 11:15; Stop 10/11/16 at 11:16; Status DC Hydroxyzine HCl (Vistaril) 25 mg TID PRN PO ANXIETY; Start 10/10/16 at 16:00; Stop 11/09/16 at 15:59 Iron (Venofer) 100 mg HD IV ; Start 10/12/16 at 07:15; Stop 11/11/16 at 07:14 Latanoprost (Xalatan 0.005% Op Soln) 1 drop QHS OU Last administered on 20:47; Start 10/10/16 at 21:00; Stop 11/09/16 at 20:59 Levetiracetam (Keppra) 500 mg BID PO Last administered on 10/13/16 09:21; Start 10/10/16 at 21:00; Stop 11/09/16 at 20:59 Levothyroxine Sodium (Synthroid) 0.2 mg DAILY@06 PO Last administered on 06:41; Start 10/11/16 at 06:00; Stop 11/10/16 at 05:59 Magnesium Hydroxide (Milk Of Magnesia) 30 ml DAILYPRN PRN PO CONSTIPATION Last administered on 10/11/16 08:33; Start 10/10/16 at 15:45; Stop 11/09/16 at 15:44 Magnesium Citrate (Citrate Of Magnesia) 300 ml ONCE ONCE PO Last administered on 10/12/16 10:30; Start 10/12/16 at 10:00; Stop 10/12/16 at 10:05; Status DC Polyethylene Glycol (Miralax) 1 pkt DAILY PRN PO CONSTIPATION Last administered on 10/11/16 08:33; Start 10/10/16 at 15:45; Stop 11/09/16 at 15:44 Senna (Senokot) 1 tab QHS PO Last administered on 10/12/16 20:46; Start at 21:00; Stop 11/09/16 at 20:59 Sevelamer Carbonate (Renvela) 1,600 mg WM PO Last administered on 10/13/16 09: 21; Start 10/10/16 at 18:00; Stop 11/09/16 at 17:59 Simvastatin (Zocor) 40 mg QPM@18 PO Last administered on 10/12/16 17:30; Start 10/10/16 at 18:00; Stop 11/09/16 at 17:59 Timolol Maleate (Timoptic-Xe 0.5% Oph Gfs) 1 drop DAILY OU Last administered on 10/13/16 09:20; Start 10/11/16 at 09:00; Stop 11/10/16 at 08:59 Vitamin B Complex/ Vit C/Folic Acid (Nephro-Annie Rx) 1 tab QPM PO Last administered on 10/12/16 20:46; Start 10/11/16 at 21:00; Stop 11/10/16 at 20:59 Warfarin Sodium (Coumadin) 5 mg DAILY@17 PO Last administered on 10/12/16t 17: 29; Start 10/10/16 at 17:00; Stop 10/13/16 at 10:20; Status DC JENNIFER HAMPTON MD Oct 13, 2016 10:25
--- NOTE | 2016-10-13 12:57 | IPNPDOC ---
Date of Service/Time Progress Note DATE OF ENCOUNTER: 10/13/2016 SUBJECTIVE: Mr. Savage was seen this morning at bedside in the acute rehab floor. He was working with physical therapy and doing well. He is scheduled for dialysis this afternoon. No acute overnight issues. He reports that he is feeling well. No chest pain, palpitations, shortness of breath, nausea, vomiting , abdominal pain or diarrhea. No fevers or chills. Hip pain is controlled. OBJECTIVE: Vital Signs Date Time Temp Pulse Resp B/P Pulse Ox O2 Delivery O2 Flow Rate FiO2 10/13/16 09:46 Room Air 10/13/16 06:41 55 118/52 10/13/16 06:00 96.9 18 97 I&O- Last 24 Hours up to 6 AM 10/13/16 06:00 Intake Total 720 ml Output Total 400 ml Balance 320 ml General: Patient is awake and alert. In no acute distress. HEENT: Normocephalic, atraumatic. Extraocular muscles are intact. Moist mucosa. Neck: Supple. No jugular venous distension appreciated. Heart: Normal S1, S2. Regular rate and rhythm. No murmur appreciated. Lungs: Clear to auscultation bilaterally. No rales, rhonchi or wheezing. Abdomen: Soft, nontender, nondistended. Positive bowel sounds. Extremities: Right thigh area has some minimal swelling. No cyanosis. Positive pedal pulses bilaterally. Neurologic: No focal deficits. LABORATORY DATA: 10/13/16 06:42 Red Blood Count 2.38 L, Mean Corpuscular Volume 105.9 H, Mean Corpuscular Hemoglobin 35.3 H, Mean Corpuscular Hemoglobin Concent 33.3, Red Cell Distribution Width 16.4 H, Anion Gap 7L, Calcium Level 9.8, Glomerular Filtration Rate 8.3L, Magnesium Level 3.3H, Phosphorus Level 4.0, Prothromb Time International Ratio 3.24, Prothrombin Time 33.1H ASSESSMENT AND PLAN: 1. End-stage renal disease. Patient is due for hemodialysis today. Continue with normal schedule of Sunday, Sunday and Fridays. 2. Acute blood loss anemia. The patient has acute blood loss due to his right hip fracture status post ORIF. He received 2 units of packed red blood cells during dialysis on 10/09. Iron level obtained on 10/12 was low. He received Aranesp during hemodialysis on 10/11 and is receiving Venofer. Hemoglobin not significantly changed. We will continue to monitor his labs. 3. Hypertension. Blood pressure is stable. He is on Coreg and Cardura. 4. History of gout. Uric acid level within normal and allopurinol has been discontinued. 5. Hyperphosphatemia. Continue with Renvela 1600 mg by mouth with meals. 6. Right hip fracture from fall. The patient is status post open reduction, internal fixation (ORIF) on 10/07. Pain is controlled and he is undergoing physical therapy. GME ATTESTATION GME ATTESTATION My preceptor for this patient encounter was physically present in the building during the encounter and was fully available. As needed, all aspects of the patient interview, examination, medical decision making process, and medical care plan development were reviewed and approved by the preceptor. Preceptor is aware and concurs with the plan as stated in the body of this note and will attest to such by his/her cosignature. LAKESHIA AGRAWAL DO Oct 13, 2016 12:57 LAKESHIA AGRAWAL DO Oct 13, 2016 12:57
[2016-10-13] MEDS ORDERED: HEPARIN 1,000 UNITS/ML 10ML VIAL (FOR RADIOLOGY& DIALYSIS ONLY) IV ONE (13:00)
[2016-10-13 14:49] VITALS: BP 147/68
[2016-10-13] MEDS: SIMVASTATIN 40 MG TAB PO SCH (17:07)
[2016-10-13 20:00] VITALS: BP 125/58
[2016-10-13] MEDS: SINEMET 10-100 MG TAB PO SCH (20:34)
[2016-10-13] MEDS: NEPHRO-VIT TAB (NEPHROCAPS) PO SCH (20:34)
[2016-10-13] MEDS: SENNA 8.6 MG TAB (SENOKOT) PO SCH (20:34)
[2016-10-13] MEDS: LATANOPROST 0.005% OPHTH SOLN 2.5 ML OU SCH (20:34)
[2016-10-13] MEDS: DOXAZOSIN MESYLATE 4 MG TAB PO SCH (20:35)
[2016-10-14 05:01] VITALS: BP 121/58
[2016-10-14 05:02] VITALS: BP 121/58
[2016-10-14] MEDS: CARVedilol 3.125 MG TAB PO SCH ×3 (05:04→17:55)
[2016-10-14] MEDS: LEVOTHYROXINE 0.1 MG TAB (100 MCG) PO SCH (05:04)
[2016-10-14 07:00] LABS: MEAN CORPUSCULAR HEMOGLOBIN 35.7 pg (27.0-33.0); MEAN CORPUSCULAR HGB CONC 33.9 g/dl (32.0-36.5); MEAN CORPUSCULAR VOLUME 105.5 fl (80.0-96.0); RED CELL DISTRIBUTION WIDTH 16.2 % (11.5-14.5); WHITE BLOOD COUNT 5.1 K/mm3 (4.0-10.0)
[2016-10-14 07:04] LABS: INR 3.23
[2016-10-14 07:16] LABS: CALCIUM LEVEL 9.4 MG/DL (8.8-10.2); CREATININE FOR GFR 5.17 MG/DL (0.70-1.30); GLOMERULAR FILTRATION RATE 11.4 (>35); POTASSIUM SERUM 4.2 MEQ/L (3.5-5.1)
[2016-10-14] MEDS: TIMOLOL XE GFS 0.5% OPHTH 5 ML OU SCH (08:29)
[2016-10-14] MEDS: (RENVELA) SEVELAMER **CARBONate** 800 MG TAB PO SCH ×3 (08:29→17:55)
[2016-10-14] MEDS: DOCUSATE SODIUM 100 MG CAP PO SCH ×2 (08:30→20:02)
[2016-10-14] MEDS: FUROSEMIDE 80 MG TAB PO SCH (08:30)
[2016-10-14] MEDS: levETIRAcetam 250MG TABLET (KEPPRA) PO SCH ×2 (08:30→20:02)
--- NOTE | 2016-10-14 11:50 | IPNPDOC ---
Date/Time Seen The patient was seen on 10/14/16 at 11:42. Progress Note DATE OF ENCOUNTER: 10/14/2016 SUBJECTIVE: Mr. Savage was seen this morning at bedside in the acute rehab floor. He hemodialysis yesterday which was well tolerated. He continues to work with physical therapy. No acute overnight issues. He reports that he is feeling well. No chest pain, palpitations, shortness of breath, nausea, vomiting, abdominal pain or diarrhea. No fevers or chills. He reports very little hip pain. OBJECTIVE: Vital Signs Date Time Temp Pulse Resp B/P Pulse Ox O2 Delivery O2 Flow Rate FiO2 10/14/16 08:00 Room Air 10/14/16 05:04 62 121/58 10/14/16 05:02 96.8 18 99 I&O- Last 24 Hours up to 6 AM 10/14/16 06:00 Intake Total 720 ml Output Total 2000 ml Balance -1280 ml General: Patient is awake and alert. In no acute distress. HEENT: Normocephalic, atraumatic. Extraocular muscles are intact. Moist mucosa. Neck: Supple. No jugular venous distension appreciated. Heart: Normal S1, S2. Regular rate and rhythm. Lungs: Clear to auscultation bilaterally. No rales, rhonchi or wheezing. Abdomen: Soft, nontender, nondistended. Positive bowel sounds. Extremities: No cyanosis or lower extremity edema. Positive pedal pulses bilaterally. Neurologic: No focal deficits. LABORATORY DATA: 10/14/16 06:31 Red Blood Count 2.58 L, Mean Corpuscular Volume 105.5 H, Mean Corpuscular Hemoglobin 35.7 H, Mean Corpuscular Hemoglobin Concent 33.9, Red Cell Distribution Width 16.2 H, Anion Gap 7L, Calcium Level 9.4, Glomerular Filtration Rate 11.4L, Prothromb Time International Ratio 3.23, Prothrombin Time 33.0H ASSESSMENT AND PLAN: 1. End-stage renal disease. Patient had hemodialysis yesterday where 2000ml was removed, he tolerated it well. Continue with normal schedule of Sunday, Sunday and Sunday. 2. Acute blood loss anemia in addition to chronic anemia. The patient had acute blood loss due to his right hip fracture status post ORIF. He received 2 units of packed red blood cells during dialysis on 10/09. He also receives Aranesp as needed during hemodialysis and has also received Venofer. Hemoglobin is currently stable. 3. Hypertension. Blood pressure is stable. He is on Coreg, Lasix and Cardura. 4. History of gout. Uric acid level within normal and allopurinol has been discontinued. 5. Hyperphosphatemia, resolved. Continue with Renvela 1600 mg by mouth with meals. 6. Right hip fracture from fall. The patient is status post open reduction, internal fixation (ORIF) on 10/07. Pain is controlled and he is undergoing physical therapy. GME ATTESTATION GME ATTESTATION My preceptor for this patient encounter was physically present in the building during the encounter and was fully available. As needed, all aspects of the patient interview, examination, medical decision making process, and medical care plan development were reviewed and approved by the preceptor. Preceptor is aware and concurs with the plan as stated in the body of this note and will attest to such by his/her cosignature. LAKESHIA AGRAWAL DO Oct 14, 2016 11:50
[2016-10-14 11:54] VITALS: BP 132/61
[2016-10-14 14:00] VITALS: BP 130/60
[2016-10-14 17:53] VITALS: BP 113/58
[2016-10-14] MEDS: SIMVASTATIN 40 MG TAB PO SCH (17:55)
[2016-10-14 20:00] VITALS: BP 130/60
[2016-10-14] MEDS: SINEMET 10-100 MG TAB PO SCH (20:00)
[2016-10-14] MEDS: DOXAZOSIN MESYLATE 4 MG TAB PO SCH (20:01)
[2016-10-14] MEDS: SENNA 8.6 MG TAB (SENOKOT) PO SCH (20:02)
[2016-10-14] MEDS: NEPHRO-VIT TAB (NEPHROCAPS) PO SCH (20:02)
[2016-10-14] MEDS: LATANOPROST 0.005% OPHTH SOLN 2.5 ML OU SCH (20:02)
[2016-10-15] MEDS: CARVedilol 3.125 MG TAB PO SCH ×5 (00:06→23:32)
[2016-10-15 06:00] VITALS: BP 126/68
[2016-10-15] MEDS: LEVOTHYROXINE 0.1 MG TAB (100 MCG) PO SCH (06:05)
[2016-10-15 06:58] LABS: MEAN CORPUSCULAR HEMOGLOBIN 34.5 pg (27.0-33.0); MEAN CORPUSCULAR HGB CONC 32.5 g/dl (32.0-36.5); MEAN CORPUSCULAR VOLUME 106.2 fl (80.0-96.0); RED CELL DISTRIBUTION WIDTH 16.1 % (11.5-14.5); WHITE BLOOD COUNT 6.6 K/mm3 (4.0-10.0)
[2016-10-15 07:07] LABS: INR 2.93
[2016-10-15 07:25] LABS: CALCIUM LEVEL 9.6 MG/DL (8.8-10.2); CREATININE FOR GFR 6.89 MG/DL (0.70-1.30); GLOMERULAR FILTRATION RATE 8.2 (>35); POTASSIUM SERUM 4.4 MEQ/L (3.5-5.1)
[2016-10-15] MEDS: (RENVELA) SEVELAMER **CARBONate** 800 MG TAB PO SCH ×3 (08:09→17:07)
[2016-10-15] MEDS: DOCUSATE SODIUM 100 MG CAP PO SCH ×2 (08:09→20:53)
[2016-10-15] MEDS: TIMOLOL XE GFS 0.5% OPHTH 5 ML OU SCH (08:09)
[2016-10-15] MEDS: FUROSEMIDE 80 MG TAB PO SCH (08:09)
[2016-10-15] MEDS: levETIRAcetam 250MG TABLET (KEPPRA) PO SCH ×2 (08:09→20:53)
[2016-10-15 10:30] VITALS: BP 135/68
--- NOTE | 2016-10-15 13:24 | IPN ---
DATE: 10/15/2016 Mr. Savage is seen this morning on his bedside. He reports feeling well today. However, had some vomiting yesterday after supper. He denies any dyspnea or chest pain. He continues with rehabilitation following his right hip surgery due to fracture. PHYSICAL EXAMINATION: Temperature 97.9 degrees Fahrenheit, heart rate 68 per minute and respiratory rate 20 per minute. Blood pressure 135/68 mmHg and oxygen saturation 98% on room air. Head is atraumatic. Ears, nose and throat are unremarkable. Neck is supple and without any jugular venous distention (JVD) or thyroid enlargement. Pupils are equal and reactive to light and sclerae is anicteric. Heart sounds are regular and lungs clear to auscultation. Abdomen soft and nontender and bowel sounds are normal. There is no palpable organomegaly. Extremities have no cyanosis or clubbing. Skin has no rash or ulcers. Right thigh is bigger than the left secondary to right hip fracture, surgery and possible hematoma. Today's labs show sodium 141 and potassium 4.4. BUN 49 and creatinine 6.89. Hemoglobin is 9.7 and hematocrit 29.9. WBC count 6.6 and platelets 229. INR is 2.93. PROBLEMS: 1. End-stage renal disease. The patient is on long-term dialysis and his last dialysis was performed on Sunday. He will be scheduled for next hemodialysis tomorrow. His volume status is well-compensated and electrolytes are within normal range. 2. Hypertension. Blood pressure is very well controlled and the patient will continue with current medications. 3. Anemia due to acute blood loss. The patient did receive transfusions and is also receiving intravenous iron and Aranesp during dialysis. His anemia is improving nicely. 4. Right hip fracture, status post open reduction internal fixation (ORIF). The patient is making slow and steady improvement with rehabilitation. 5. Hypothyroidism. He has been on preadmission dose of Synthroid.
[2016-10-15 14:00] VITALS: BP 126/59
[2016-10-15 17:06] VITALS: BP 137/69
[2016-10-15] MEDS: SIMVASTATIN 40 MG TAB PO SCH (17:08)
[2016-10-15 20:00] VITALS: BP 122/58
[2016-10-15] MEDS: SINEMET 10-100 MG TAB PO SCH (20:53)
[2016-10-15] MEDS: SENNA 8.6 MG TAB (SENOKOT) PO SCH (20:53)
[2016-10-15] MEDS: LATANOPROST 0.005% OPHTH SOLN 2.5 ML OU SCH (20:53)
[2016-10-15] MEDS: DOXAZOSIN MESYLATE 4 MG TAB PO SCH (20:53)
[2016-10-15] MEDS: NEPHRO-VIT TAB (NEPHROCAPS) PO SCH (20:53)
[2016-10-15 23:33] VITALS: BP 132/62
[2016-10-16 06:00] VITALS: BP 121/59
[2016-10-16] MEDS: CARVedilol 3.125 MG TAB PO SCH ×3 (06:01→18:30)
[2016-10-16] MEDS: LEVOTHYROXINE 0.1 MG TAB (100 MCG) PO SCH (06:01)
[2016-10-16 06:52] LABS: MEAN CORPUSCULAR HEMOGLOBIN 35.5 pg (27.0-33.0); MEAN CORPUSCULAR HGB CONC 33.7 g/dl (32.0-36.5); MEAN CORPUSCULAR VOLUME 105.4 fl (80.0-96.0)
[2016-10-16 07:01] LABS: INR 3.33
[2016-10-16 07:09] LABS: CALCIUM LEVEL 9.2 MG/DL (8.8-10.2); CREATININE FOR GFR 8.4 MG/DL (0.70-1.30); GLOMERULAR FILTRATION RATE 6.5 (>35); POTASSIUM SERUM 4.3 MEQ/L (3.5-5.1)
[2016-10-16] MEDS: DOCUSATE SODIUM 100 MG CAP PO SCH ×2 (08:11→21:09)
[2016-10-16] MEDS: FUROSEMIDE 80 MG TAB PO SCH (08:11)
[2016-10-16] MEDS: levETIRAcetam 250MG TABLET (KEPPRA) PO SCH ×2 (08:11→21:09)
[2016-10-16] MEDS: (RENVELA) SEVELAMER **CARBONate** 800 MG TAB PO SCH ×3 (08:12→18:30)
[2016-10-16] MEDS: TIMOLOL XE GFS 0.5% OPHTH 5 ML OU SCH (08:12)
[2016-10-16] MEDS ORDERED: HEPARIN 1,000 UNITS/ML 10ML VIAL (FOR RADIOLOGY& DIALYSIS ONLY) IV ONE (10:45)
[2016-10-16] MEDS ORDERED: SENNA 8.6 MG TAB (SENOKOT) PO ONE (11:00)
--- NOTE | 2016-10-16 12:31 | IPNPDOC ---
Center Rep Progress Note PROGRESS NOTE DATE OF ADMISSION: 10/10/2016 DATE OF SERVICE: 10/16/2016 IDENTIFICATION STATEMENT: Patient is an 81-year-old gentleman with a history of multiple medical comorbidities including atrial fibrillation, end-stage renal disease on hemodialysis 3 times a week and subarachnoid hemorrhage in August 2016 with subsequent episodes of seizures who sustained a mechanical fall in his home on 10/06/2016. He was found to have a right displaced intertrochanteric proximal femur fracture. After medical clearance, he underwent an ORIF with short gamma nail on 10/07/[address] Reji Capps. PAST MEDICAL HISTORY: Hypertension Atrial fibrillation (usually on Coumadin, but had not been restarted since his subarachnoid hemorrhage in August 2016) End-stage renal disease on hemodialysis 3 times a week Subarachnoid hemorrhage in August 2016 secondary to a fall. Two seizures in August 2016 that he reports were during dialysis. Gout left great toe (last episode ~1 yr ago) PAST SURGICAL HISTORY: Bilateral knee replacements Tonsillectomy ALLERGIES: Penicillin MEDICATIONS: Lasix 80 mg daily Sinemet 10/100 1 tab by mouth daily at bedtime vitamin B complex/C/folic acid one tab by mouth daily Cardura 8 mg by mouth daily at bedtime Keppra 500 mg by mouth twice a day Renvela 1600 mg by mouth with meals MiraLAX 1 packet by mouth daily Percocet 1 tab every 4 hours when necessary pain Timoptic 0.5% 1 drop both eyes daily Synthroid 0.2 mg daily Xalatan 0.005% one drop both eyes daily at bedtime Keppra 500 mg by mouth twice a day Zocor 40 mg by mouth every afternoon Colace 100 mg by mouth twice a day Vistaril 25 mg by mouth 3 times a day when necessary anxiety Acetaminophen 650 mg by mouth every 4 hours as needed SUBJECTIVE: Patient states tip of left toe hurt yesterday, but better today. Also has some difficulty having BM, had small one this am. Otherwise no complaints. slept well, pain minimal. Denies any CP, SOB, N/V, lightheadedness. VITAL SIGNS: Temperature 97.3F, pulse 56, respiratory rate of 18, blood pressure 121/59, 99% saturation on room air PHYSICAL EXAMINATION: GENERAL: Well nourished, well developed, lying in bed, no acute distress. HEENT: Normocephalic, atraumatic. PERRL, EOMI CARDIOVASCULAR: S1, S2, irregular rate. No bilateral pedal edema or calf tenderness LUNGS: Clear to auscultation bilaterally no wheezing rhonchi or rales ABDOMEN: Soft, nontender, nondistended. Normoactive bowel sounds throughout. MUSCULOSKELETAL: Well-healed bilateral surgical scars on his knees. MMT: 5/5 strength bilateral upper limbs in all major muscle groups. 1/5 right hip flexors , 4/5 right knee extension flexion, 5/5 right dorsiflexion, plantar flexion and EHL. 5/5 left hip flexors, left knee extension, flexion, dorsiflexion, plantar flexion and EHL. NEUROLOGICAL: Alert and oriented x 3. Answers all questions appropriately. Memory intact. Able to follow commands without difficulty. SKIN: Right lateral hip and thigh surgical site with dressing. LABORATORY DATA: 10/16/16: reviewed, see below 10/10/2016: Hemoglobin 8.8, hematocrit 25.6, WBC 5.0, sodium 142, potassium 4.4 , chloride 100, carbon dioxide 32, BUN 36, creatinine 5.60, GFR 10.4, glucose 100, PT 15.2, INR 1.19. IMAGING: X-ray of the hip 10/07/2015: Right displaced intertrochanteric proximal femur fracture. FUNCTIONAL STATUS, Premorbid: Independent with ADLs and ambulation ASSESSMENT AND PLAN: 1. Displaced intertrochanteric proximal femur fracture status post ORIF now with gait abnormality and dysfunctional ADLs: Patient is PWB on the right lower limb. Patient making progress. Continue daily physical and occupational therapy. Activity modification to allow for hemodialysis 3 times per week. Rehabilitation nursing for bladder, bowel, medication management and wound care. 2. Anemia acute blood loss confounded by chronic kidney disease: Status post blood transfusion on 10/09/2016. S/p Darbepoiting and Venofer. Hgb ~ trending up. 3. End-stage renal disease on hemodialysis: As above, activity modification to allow for hemodialysis 3 times per week, MWF. Treatment recommendations will be per the nephrology service. 4. Atrial fibrillation: Rate controlled. INR supratherapeutic again today. Last dose Coumadin 10/12/16. Reassess in am. 5. Constipation: Recurrent. Continue Colace at current dose, increase senna bid. Continue milk of magnesia and MiraLAX on an as-needed basis. 6. Pain: Patient hasnt required any pain medication. Continue intermittent ice to the right hip. 7. Diet/malnutrition: Maintain patient on a regular diet. Prealbumin low. Continue Nepro supplements. / Vital Signs Vital Sign - Last 24 Hours 10/15/16 10/15/16 10/15/16 10/15/16 14:00 17:06 17:07 20:00 Temp 97.3 98.1 Pulse 52 72 72 55 Resp 18 18 B/P 126/59 137/69 137/69 122/58 Pulse Ox 100 96 O2 Delivery Room Air 10/15/16 10/15/16 10/15/16 10/15/16 20:08 20:53 23:32 23:33 Pulse 58 58 B/P 122/58 132/62 132/62 O2 Delivery Room Air 10/16/16 10/16/16 10/16/16 10/16/16 06:00 06:01 09:00 11:19 Temp 97.3 Pulse 52 56 56 Resp 18 B/P 121/59 121/59 121/59 Pulse Ox 99 O2 Delivery NIPPV (BIPAP/CPAP) Room Air Laboratory Data CBC/BMP Laboratory Tests 10/16/16 06:39 Calcium Level 9.2, Red Blood Count 2.58 L, Mean Corpuscular Volume 105.4 H, Mean Corpuscular Hemoglobin 35.5 H, Mean Corpuscular Hemoglobin Concent 33.7, Red Cell Distribution Width 16.0 H Labs 24H Laboratory Tests 2 10/16/16 06:39: Anion Gap 9, Blood Urea Nitrogen 67H, Creatinine 8.40H, Sodium Level 141, Potassium Level 4.3, Chloride Level 101, Carbon Dioxide Level 31, Calcium Level 9.2, Glomerular Filtration Rate 6.5L, Prothromb Time International Ratio 3.33, Prothrombin Time 33.8H Allergies Allergies: Coded Allergies: Penicillins (Unverified Allergy, Intermediate, HIVES, 10/06/16) Current Medications Current Medications Current Medications Acetaminophen (Tylenol) 650 mg Q4HP PRN PO MILD PAIN (PS 1-4); Start 10/10/16 at 15:45; Stop 11/09/16 at 15:44 Acetaminophen/ Hydrocodone Bitart ([place], Anexsia 5/325) 1 tab Q4HP PRN PO MODERATE/SEVERE PAIN (PS 5-10); Start 10/10/16 at 15:45; Stop 10/17/16 at 15:44 Allopurinol (Zyloprim) 300 mg DAILY PO Last administered on 10/11/16 08:33; Start 10/11/16 at 09:00; Stop 10/12/16 at 07:11; Status DC Carbidopa/Levodopa (Sinemet ) 1 tab QHS PO Last administered on 20:53; Start 10/10/16 at 21:00; Stop 11/09/16 at 20:59 Carvedilol (COReg) 3.125 mg Q6H PO Last administered on 10/16/16 11:19; Start 10/10/16 at 18:00; Stop 11/09/16 at 17:59 Darbepoetin Jin (Aranesp (Dialysis Use)) 100 mcg HD IV ; Start 10/11/16 at 10: 45; Stop 11/10/16 at 10:44 Docusate Sodium (Colace) 100 mg BID PO Last administered on 10/16/16 08:11; Start 10/10/16 at 21:00; Stop 11/09/16 at 20:59 Doxazosin Mesylate (Cardura) 8 mg QHS PO Last administered on 10/15/16 20:53; Start 10/10/16 at 21:00; Stop 11/09/16 at 20:59 Furosemide (Lasix) 80 mg DAILY PO Last administered on 10/16/16 08:11; Start 10/11/16 at 09:00; Stop 11/10/16 at 08:59 Heparin Sodium (Heparin) 1,000 units ONCE ONCE IV ; Start 10/11/16 at 11:15; Stop 10/11/16 at 11:16; Status DC Heparin Sodium (Heparin) 1,000 units ONCE ONCE IV ; Start 10/13/16 at 13:00; Stop 10/13/16 at 13:01; Status DC Heparin Sodium (Heparin) 1,000 units ONCE ONCE IV ; Start 10/16/16 at 10:45; Stop 10/16/16 at 10:46; Status DC Hydroxyzine HCl (Vistaril) 25 mg TID PRN PO ANXIETY; Start 10/10/16 at 16:00; Stop 11/09/16 at 15:59 Iron (Venofer) 100 mg HD IV ; Start 10/12/16 at 07:15; Stop 11/11/16 at 07:14 Latanoprost (Xalatan 0.005% Op Soln) 1 drop QHS OU Last administered on 20:53; Start 10/10/16 at 21:00; Stop 11/09/16 at 20:59 Levetiracetam (Keppra) 500 mg BID PO Last administered on 10/16/16 08:11; Start 10/10/16 at 21:00; Stop 11/09/16 at 20:59 Levothyroxine Sodium (Synthroid) 0.2 mg DAILY@06 PO Last administered on 06:01; Start 10/11/16 at 06:00; Stop 11/10/16 at 05:59 Magnesium Hydroxide (Milk Of Magnesia) 30 ml DAILYPRN PRN PO CONSTIPATION Last administered on 10/11/16 08:33; Start 10/10/16 at 15:45; Stop 11/09/16 at 15:44 Magnesium Citrate (Citrate Of Magnesia) 300 ml ONCE ONCE PO Last administered on 10/12/16 10:30; Start 10/12/16 at 10:00; Stop 10/12/16 at 10:05; Status DC Polyethylene Glycol (Miralax) 1 pkt DAILY PRN PO CONSTIPATION Last administered on 10/11/16 08:33; Start 10/10/16 at 15:45; Stop 11/09/16 at 15:44 Senna (Senokot) 1 tab BID PO ; Start 10/16/16 at 21:00; Stop 11/15/16 at 20:59 Senna (Senokot) 1 tab ONCE ONCE PO Last administered on 10/16/16 11:18; Start 10/16/16 at 11:00; Stop 10/16/16 at 11:01; Status DC Senna (Senokot) 1 tab QHS PO Last administered on 10/15/16 20:53; Start at 21:00; Stop 10/16/16 at 10:47; Status DC Sevelamer Carbonate (Renvela) 1,600 mg WM PO Last administered on 10/16/16 08: 12; Start 10/10/16 at 18:00; Stop 11/09/16 at 17:59 Simvastatin (Zocor) 40 mg QPM@18 PO Last administered on 10/15/16 17:08; Start 10/10/16 at 18:00; Stop 11/09/16 at 17:59 Timolol Maleate (Timoptic-Xe 0.5% Ophth Gfs) 1 drop DAILY OU Last administered on 10/16/16 08:12; Start 10/11/16 at 09:00; Stop 11/10/16 at 08:59 Vitamin B Complex/ Vit C/Folic Acid (Nephro-Annie Rx) 1 tab QPM PO Last administered on 10/15/16 20:53; Start 10/11/16 at 21:00; Stop 11/10/16 at 20:59 Warfarin Sodium (Coumadin) 5 mg DAILY@17 PO Last administered on 10/12/16 17: 29; Start 10/10/16 at 17:00; Stop 10/13/16 at 10:20; Status DC JENNIFER HAMPTON MD Oct 16, 2016 12:31
[2016-10-16 17:00] VITALS: BP 118/54
[2016-10-16] MEDS: SIMVASTATIN 40 MG TAB PO SCH (18:30)
[2016-10-16 20:00] VITALS: BP 107/53
[2016-10-16] MEDS: SINEMET 10-100 MG TAB PO SCH (21:06)
[2016-10-16] MEDS: DOXAZOSIN MESYLATE 4 MG TAB PO SCH (21:09)
[2016-10-16] MEDS: SENNA 8.6 MG TAB (SENOKOT) PO SCH (21:09)
[2016-10-16] MEDS: LATANOPROST 0.005% OPHTH SOLN 2.5 ML OU SCH (21:09)
[2016-10-16] MEDS: NEPHRO-VIT TAB (NEPHROCAPS) PO SCH (21:09)
--- NOTE | 2016-10-16 22:09 | IPN ---
DATE: 10/16/2016 SUBJECTIVE: The patient was seen and examined today at noon time during hemodialysis procedure. The patient was tolerating the hemodialysis procedure well. There were no active complaints. REVIEW OF SYSTEMS: The patient denies any fever, chills, rigors, headache, nausea, vomiting, chest pain, shortness of breath, pain in abdomen, constipation or diarrhea. The rest of review of systems is negative. OBJECTIVE: VITAL SIGNS: Temperature is 97.4 degrees Fahrenheit, blood pressure is 118/54, pulse 59, respiratory rate of 18, saturating 98% on room air. Intake and output: Urine output of 210 mL overnight. There is no bed scale weight available. PHYSICAL EXAMINATION: GENERAL: The patient is awake, alert and oriented times three. Laying in the bed. Getting hemodialysis done. No apparent distress. HEAD/NECK: Extraocular muscles intact. Pupils equally round and reactive to light. Neck is supple. There is no jugular venous distention (JVD). CARDIOVASCULAR: S1, S2, regular rate. No murmur, rub or gallop. RESPIRATORY: Chest is clear to auscultation bilaterally. Bilateral equal air entry. ABDOMEN: Soft. Positive bowel sounds. Nontender. No ascites. No organomegaly. EXTREMITIES: No clubbing or cyanosis. Pulses are 2+. CENTRAL NERVOUS SYSTEM: There is no focal neurological deficit. Power is 5/5 in all extremities. LABORATORY REVIEW: CBC showed WBC of 6, hemoglobin 9.2, platelet of 228. BMP showed sodium 141, potassium 4.3, chloride 101, bicarbonate 31, BUN 67, creatinine 8.4. Calcium 9.2. CURRENT MEDICATIONS: The patient's current medications are all reviewed by me. There is no change in the medications at this time. ASSESSMENT: 81-year-old male with past medical history of end-stage renal disease, on hemodialysis admitted this time because of right hip fracture, status post open reduction internal fixation of the right hip fracture. PROBLEM LIST: 1. End-stage renal disease, on hemodialysis. The patient getting hemodialysis according to his regular schedule today. We shall try to do an ultrafiltration of 2 to 2.5 kg as tolerated by his blood pressure today. 2. Anemia and end-stage renal disease. Status post surgery. The patient's hemoglobin is 9.2, which is slightly below target. The patient has been started on IV Venofer and Aranesp with hemodialysis. Continue the current dose. 3. Hypertension. Blood pressure is well controlled at this time. Continue current dose of Coreg 3.1 to 5 mg by mouth Q 6 hourly, doxazosin 8 mg by mouth nightly. 4. Right hip fracture. Status post open reduction internal fixation of the right hip fracture. The patient is slowly improving. He gets physical therapy. He reports that now he is able to walk up to the gym from his room. The rest of the management is as per rehabilitation services. KRISTIAN
[2016-10-17] MEDS: CARVedilol 3.125 MG TAB PO SCH ×5 (05:52→23:46)
[2016-10-17] MEDS: LEVOTHYROXINE 0.1 MG TAB (100 MCG) PO SCH (05:52)
[2016-10-17 06:00] VITALS: BP 124/57
[2016-10-17 07:30] LABS: INR 2.62
[2016-10-17] MEDS: SENNA 8.6 MG TAB (SENOKOT) PO SCH ×2 (08:15→20:29)
[2016-10-17] MEDS: TIMOLOL XE GFS 0.5% OPHTH 5 ML OU SCH (08:15)
[2016-10-17] MEDS: (RENVELA) SEVELAMER **CARBONate** 800 MG TAB PO SCH ×3 (08:15→17:29)
[2016-10-17] MEDS: levETIRAcetam 250MG TABLET (KEPPRA) PO SCH ×2 (08:15→20:29)
[2016-10-17] MEDS: DOCUSATE SODIUM 100 MG CAP PO SCH ×2 (08:15→20:29)
[2016-10-17] MEDS: FUROSEMIDE 80 MG TAB PO SCH (08:15)
[2016-10-17] MEDS: MIRALAX *UNIT DOSE* 17GM PACKET PO PRN (10:43)
[2016-10-17 11:31] VITALS: BP 111/54
--- NOTE | 2016-10-17 11:40 | IPNPDOC ---
Multimedia Services Coordinator Progress Note PROGRESS NOTE DATE OF ADMISSION: 10/10/2016 DATE OF SERVICE: 10/17/2016 IDENTIFICATION STATEMENT: Patient is an 81-year-old gentleman with a history of multiple medical comorbidities including atrial fibrillation, end-stage renal disease on hemodialysis 3 times a week and subarachnoid hemorrhage in August 2016 with subsequent episodes of seizures who sustained a mechanical fall in his home on 10/06/2016. He was found to have a right displaced intertrochanteric proximal femur fracture. After medical clearance, he underwent an ORIF with short gamma nail on 10/07/[address] Reji Capps. PAST MEDICAL HISTORY: Hypertension Atrial fibrillation (usually on Coumadin, but had not been restarted since his subarachnoid hemorrhage in August 2016) End-stage renal disease on hemodialysis 3 times a week Subarachnoid hemorrhage in August 2016 secondary to a fall. Two seizures in August 2016 that he reports were during dialysis. Gout left great toe (last episode ~1 yr ago) PAST SURGICAL HISTORY: Bilateral knee replacements Tonsillectomy ALLERGIES: Penicillin MEDICATIONS: Lasix 80 mg daily Sinemet 10/100 1 tab by mouth daily at bedtime vitamin B complex/C/folic acid one tab by mouth daily Cardura 8 mg by mouth daily at bedtime Keppra 500 mg by mouth twice a day Renvela 1600 mg by mouth with meals MiraLAX 1 packet by mouth daily Percocet 1 tab every 4 hours when necessary pain Timoptic 0.5% 1 drop both eyes daily Synthroid 0.2 mg daily Xalatan 0.005% one drop both eyes daily at bedtime Keppra 500 mg by mouth twice a day Zocor 40 mg by mouth every afternoon Colace 100 mg by mouth twice a day Vistaril 25 mg by mouth 3 times a day when necessary anxiety Acetaminophen 650 mg by mouth every 4 hours as needed SUBJECTIVE: Patient w/o complaints. Still no BM, tried this am, but unable. Left toe no longer hurts. Slept well, pain minimal. Denies any CP, SOB, N/V, lightheadedness. VITAL SIGNS: Temperature 96.0F, pulse 53, respiratory rate of 18, blood pressure 111/54, 99% saturation on room air PHYSICAL EXAMINATION: GENERAL: Well nourished, well developed, lying in bed, no acute distress. HEENT: Normocephalic, atraumatic. PERRL, EOMI CARDIOVASCULAR: S1, S2, irregular rate. No bilateral pedal edema or calf tenderness LUNGS: Clear to auscultation bilaterally no wheezing rhonchi or rales ABDOMEN: Soft, nontender, nondistended. Normoactive bowel sounds throughout. MUSCULOSKELETAL: Well-healed bilateral surgical scars on his knees. MMT: 5/5 strength bilateral upper limbs in all major muscle groups. 1/5 right hip flexors , 4/5 right knee extension flexion, 5/5 right dorsiflexion, plantar flexion and EHL. 5/5 left hip flexors, left knee extension, flexion, dorsiflexion, plantar flexion and EHL. NEUROLOGICAL: Alert and oriented x 3. Answers all questions appropriately. Memory intact. Able to follow commands without difficulty. SKIN: Right lateral hip and thigh surgical site with dressing. LABORATORY DATA: 10/17/16: reviewed, see below 10/10/2016: Hemoglobin 8.8, hematocrit 25.6, WBC 5.0, sodium 142, potassium 4.4 , chloride 100, carbon dioxide 32, BUN 36, creatinine 5.60, GFR 10.4, glucose 100, PT 15.2, INR 1.19. IMAGING: X-ray of the hip 10/07/2015: Right displaced intertrochanteric proximal femur fracture. FUNCTIONAL STATUS, Premorbid: Independent with ADLs and ambulation ASSESSMENT AND PLAN: 1. Displaced intertrochanteric proximal femur fracture status post ORIF now with gait abnormality and dysfunctional ADLs: PWB right lower limb. Patient making progress. Continue daily physical and occupational therapy. Activity modification to allow for hemodialysis 3 times per week. Rehabilitation nursing for bladder, bowel, medication management and wound care. 2. Anemia acute blood loss confounded by chronic kidney disease: Status post blood transfusion on 10/09/2016. S/p Darbepoiting and Venofer. Hgb ~ trending up. 3. End-stage renal disease on hemodialysis: As above, activity modification to allow for hemodialysis 3 times per week, MWF. Treatment recommendations will be per the nephrology service. 4. Atrial fibrillation: Rate controlled. Last dose Coumadin 10/12/16. Restart today at lower dose. AM labs. 5. Constipation: Recurrent, persistent. S/p increase senna yesterday. Continue Colace at current dose. Will change Mirlax to daily. Continue milk of magnesia on an as-needed basis. 6. Pain: Patient hasnt required any pain medication. Continue intermittent ice to the right hip. 7. Diet/malnutrition: Maintain patient on a regular diet. Prealbumin low. Continue Nepro supplements. / Vital Signs Vital Sign - Last 24 Hours 10/16/16 10/16/16 10/16/16 10/16/16 17:00 18:30 20:00 20:00 Temp 97.4 96.9 Pulse 59 59 63 Resp 18 18 B/P 118/54 118/54 107/53 Pulse Ox 98 98 O2 Delivery Room Air Room Air Room Air 10/16/16 10/17/16 10/17/16 10/17/16 21:09 00:00 05:52 06:00 Temp 96.0 Pulse 86 69 69 Resp 18 B/P 117/58 131/61 124/57 124/57 Pulse Ox 99 O2 Delivery Room Air 10/17/16 10/17/16 10/17/16 08:00 11:31 11:32 Pulse 53 53 B/P 111/54 111/54 O2 Delivery Room Air Laboratory Data Labs 24H Laboratory Tests 2 10/17/16 06:56: Prothromb Time International Ratio 2.62, Prothrombin Time 28.1H Allergies Allergies: Coded Allergies: Penicillins (Unverified Allergy, Intermediate, HIVES, 10/06/16) Current Medications Current Medications Current Medications Acetaminophen (Tylenol) 650 mg Q4HP PRN PO MILD PAIN (PS 1-4); Start 10/10/16 at 15:45; Stop 11/09/16 at 15:44 Acetaminophen/ Hydrocodone Bitart ([place], Anexsia 5/325) 1 tab Q4HP PRN PO MODERATE/SEVERE PAIN (PS 5-10); Start 10/10/16 at 15:45; Stop 10/17/16 at 15:44 Allopurinol (Zyloprim) 300 mg DAILY PO Last administered on 10/11/16 08:33; Start 10/11/16 at 09:00; Stop 10/12/16 at 07:11; Status DC Carbidopa/Levodopa (Sinemet 10/100) 1 tab QHS PO Last administered on 21:06; Start 10/10/16 at 21:00; Stop 11/09/16 at 20:59 Carvedilol (COReg) 3.125 mg Q6H PO Last administered on 10/17/16 11:32; Start 10/10/16 at 18:00; Stop 11/09/16 at 17:59 Darbepoetin Jin (Aranesp (Dialysis Use)) 100 mcg HD IV ; Start 10/11/16 at 10: 45; Stop 11/10/16 at 10:44 Docusate Sodium (Colace) 100 mg BID PO Last administered on 10/17/16 08:15; Start 10/10/16 at 21:00; Stop 11/09/16 at 20:59 Doxazosin Mesylate (Cardura) 8 mg QHS PO Last administered on 10/16/16 21:09; Start 10/10/16 at 21:00; Stop 11/09/16 at 20:59 Furosemide (Lasix) 80 mg DAILY PO Last administered on 10/17/16 08:15; Start 10/11/16 at 09:00; Stop 11/10/16 at 08:59 Heparin Sodium (Heparin) 1,000 units ONCE ONCE IV ; Start 10/11/16 at 11:15; Stop 10/11/16 at 11:16; Status DC Heparin Sodium (Heparin) 1,000 units ONCE ONCE IV ; Start 10/13/16 at 13:00; Stop 10/13/16 at 13:01; Status DC Heparin Sodium (Heparin) 1,000 units ONCE ONCE IV ; Start 10/16/16 at 10:45; Stop 10/16/16 at 10:46; Status DC Hydroxyzine HCl (Vistaril) 25 mg TID PRN PO ANXIETY; Start 10/10/16 at 16:00; Stop 11/09/16 at 15:59 Iron (Venofer) 100 mg HD IV ; Start 10/12/16 at 07:15; Stop 11/11/16 at 07:14 Latanoprost (Xalatan 0.005% Op Soln) 1 drop QHS OU Last administered on 21:09; Start 10/10/16 at 21:00; Stop 11/09/16 at 20:59 Levetiracetam (Keppra) 500 mg BID PO Last administered on 10/17/16 08:15; Start 10/10/16 at 21:00; Stop 11/09/16 at 20:59 Levothyroxine Sodium (Synthroid) 0.2 mg DAILY@06 PO Last administered on 05:52; Start 10/11/16 at 06:00; Stop 11/10/16 at 05:59 Magnesium Hydroxide (Milk Of Magnesia) 30 ml DAILYPRN PRN PO CONSTIPATION Last administered on 10/11/16 08:33; Start 10/10/16 at 15:45; Stop 11/09/16 at 15:44 Magnesium Citrate (Citrate Of Magnesia) 300 ml ONCE ONCE PO Last administered on 10/12/16 10:30; Start 10/12/16 at 10:00; Stop 10/12/16 at 10:05; Status DC Polyethylene Glycol (Miralax) 1 pkt DAILY PRN PO CONSTIPATION Last administered on 10/17/16 10:43; Start 10/10/16 at 15:45; Stop 11/09/16 at 15:44 Senna (Senokot) 1 tab BID PO Last administered on 10/17/16 08:15; Start at 21:00; Stop 11/15/16 at 20:59 Senna (Senokot) 1 tab ONCE ONCE PO Last administered on 10/16/16 11:18; Start 10/16/16 at 11:00; Stop 10/16/16 at 11:01; Status DC Senna (Senokot) 1 tab QHS PO Last administered on 10/15/16 20:53; Start at 21:00; Stop 10/16/16 at 10:47; Status DC Sevelamer Carbonate (Renvela) 1,600 mg WM PO Last administered on 10/17/16 11: 32; Start 10/10/16 at 18:00; Stop 11/09/16 at 17:59 Simvastatin (Zocor) 40 mg QPM@18 PO Last administered on 10/16/16 18:30; Start 10/10/16 at 18:00; Stop 11/09/16 at 17:59 Timolol Maleate (Timoptic-Xe 0.5% Oph Gfs) 1 drop DAILY OU Last administered on 10/17/16 08:15; Start 10/11/16 at 09:00; Stop 11/10/16 at 08:59 Vitamin B Complex/ Vit C/Folic Acid (Nephro-Annie Rx) 1 tab QPM PO Last administered on 10/16/16 21:09; Start 10/11/16 at 21:00; Stop 11/10/16 at 20:59 Warfarin Sodium (Coumadin) 2.5 mg 1T@17 ONCE PO ; Start 10/17/16 at 17:00; Stop 10/17/16 at 17:01 Warfarin Sodium (Coumadin) 5 mg DAILY@17 PO Last administered on 10/12/16 17: 29; Start 10/10/16 at 17:00; Stop 10/13/16 at 10:20; Status DC JENNIFER HAMPTON MD Oct 17, 2016 11:40
--- NOTE | 2016-10-17 11:45 | IPNPDOC ---
Date/Time Seen The patient was seen on 10/17/16 at 11:36. Progress Note DATE OF ENCOUNTER: 10/17/2016 SUBJECTIVE: Mr. Savage was seen this morning at bedside in the acute rehab floor. He had hemodialysis yesterday which was well tolerated, 2000ml of fluid was removed. He continues to work with physical therapy. No acute overnight issues. He reports that he is feeling well. Review of systems is negative for chest pain, palpitations, shortness of breath , nausea, vomiting, abdominal pain or diarrhea, fevers, chills, headache, lightheadedness, dizziness. Hip pain is well controlled. Patient states that he is ambulating further. His appetite is good. States that he feels no pain in his left toe. OBJECTIVE: Vital Signs Date Time Temp Pulse Resp B/P Pulse Ox O2 Delivery O2 Flow Rate FiO2 10/17/16 11:32 53 111/54 10/17/16 08:00 Room Air 10/17/16 06:00 96.0 18 99 I&O- Last 24 Hours up to 6 AM 10/17/16 06:00 Intake Total 960 ml Output Total 2200 ml Balance -1240 ml General: Patient is awake and alert. In no acute distress. HEENT: Normocephalic, atraumatic. Extraocular muscles are intact. Moist mucosa. Neck: Supple. No thyromegaly. No jugular venous distension appreciated. Heart: Normal S1, S2. Regular rate and rhythm. Positive for systolic ejection murmur. Lungs: Clear to auscultation bilaterally. No rales, rhonchi or wheezing. Abdomen: Soft, nontender, nondistended. Positive bowel sounds. Extremities: No cyanosis or lower extremity edema. Positive pedal pulses bilaterally. SKIN: Warm and dry. Good skin turgor. No rashes or skin lesions appreciated. Neurologic: No focal deficits. LABORATORY DATA: Prothrombin Time International Ratio 2.62, Prothrombin Time 28.1H Labs from yesterday: ASSESSMENT AND PLAN: 1. End-stage renal disease. Patient had hemodialysis yesterday where 2000ml was removed, he tolerated it well. Continue with normal schedule of Sunday, Sunday and Sunday. Next dialysis session is tomorrow 10/18. 2. Acute blood loss anemia in addition to chronic anemia. The patient had acute blood loss due to his right hip fracture status post ORIF. He received 2 units of packed red blood cells during dialysis on 10/09. He also receives Aranesp and Venofer as needed during hemodialysis. Hemoglobin is currently stable. 3. Hypertension. Blood pressure is stable. He is on Coreg, Lasix and Cardura. 4. History of gout. Uric acid level within normal and allopurinol has been discontinued. 5. Hyperphosphatemia, resolved. Continue with Renvela 1600 mg by mouth with meals. 6. Right hip fracture from fall. The patient is status post open reduction, internal fixation (ORIF) on 10/07. Pain is controlled and he is undergoing physical therapy. GME ATTESTATION GME ATTESTATION My preceptor for this patient encounter was physically present in the building during the encounter and was fully available. As needed, all aspects of the patient interview, examination, medical decision making process, and medical care plan development were reviewed and approved by the preceptor. Preceptor is aware and concurs with the plan as stated in the body of this note and will attest to such by his/her cosignature. ATTENDING NOTE Nephrology Attending: Pt was seen and examined during work rounds. I agree with the above assessment and Plan. LAKESHIA AGRAWAL DO Oct 17, 2016 11:45 JENI LUNA MD Oct 17, 2016 21:32
[2016-10-17 14:00] VITALS: BP 112/58
[2016-10-17] MEDS ORDERED: WARFARIN SOD 2.5 MG TAB PO ONE (17:00)
[2016-10-17 17:29] VITALS: BP 118/59
[2016-10-17] MEDS: SIMVASTATIN 40 MG TAB PO SCH (17:30)
[2016-10-17 20:00] VITALS: BP 120/60
[2016-10-17] MEDS: DOXAZOSIN MESYLATE 4 MG TAB PO SCH (20:28)
[2016-10-17] MEDS: SINEMET 10-100 MG TAB PO SCH (20:29)
[2016-10-17] MEDS: ACETAMINOPHEN TAB 650MG DOSE (2X325MG) PO PRN (20:29)
[2016-10-17] MEDS: NEPHRO-VIT TAB (NEPHROCAPS) PO SCH (20:29)
[2016-10-17] MEDS: LATANOPROST 0.005% OPHTH SOLN 2.5 ML OU SCH (20:34)
[2016-10-18] MEDS: CARVedilol 3.125 MG TAB PO SCH ×4 (05:33→23:36)
[2016-10-18] MEDS: LEVOTHYROXINE 0.1 MG TAB (100 MCG) PO SCH (05:33)
[2016-10-18 06:00] VITALS: BP 135/59
[2016-10-18 06:58] LABS: MEAN CORPUSCULAR HEMOGLOBIN 34.7 pg (27.0-33.0); MEAN CORPUSCULAR HGB CONC 31.8 g/dl (32.0-36.5); MEAN CORPUSCULAR VOLUME 109.1 fl (80.0-96.0); RED CELL DISTRIBUTION WIDTH 17.1 % (11.5-14.5); WHITE BLOOD COUNT 6.7 K/mm3 (4.0-10.0)
[2016-10-18 06:59] LABS: INR 2.47
[2016-10-18 07:14] LABS: CALCIUM LEVEL 9.6 MG/DL (8.8-10.2); CREATININE FOR GFR 7.51 MG/DL (0.70-1.30); GLOMERULAR FILTRATION RATE 7.4 (>35); POTASSIUM SERUM 4.6 MEQ/L (3.5-5.1)
[2016-10-18 07:48] LABS: PHOSPHORUS LEVEL 4.8 MG/DL (2.5-4.9)
[2016-10-18 08:45] VITALS: BP 129/58
[2016-10-18] MEDS: DOCUSATE SODIUM 100 MG CAP PO SCH ×2 (08:45→21:00)
[2016-10-18] MEDS: MIRALAX *UNIT DOSE* 17GM PACKET PO SCH (08:46)
[2016-10-18] MEDS: SENNA 8.6 MG TAB (SENOKOT) PO SCH ×2 (08:47→21:00)
[2016-10-18] MEDS: levETIRAcetam 250MG TABLET (KEPPRA) PO SCH ×2 (08:47→21:00)
[2016-10-18] MEDS: FUROSEMIDE 80 MG TAB PO SCH (08:47)
[2016-10-18] MEDS: (RENVELA) SEVELAMER **CARBONate** 800 MG TAB PO SCH ×3 (08:47→17:20)
[2016-10-18] MEDS: TIMOLOL XE GFS 0.5% OPHTH 5 ML OU SCH (08:48)
--- NOTE | 2016-10-18 11:39 | IPN ---
DATE OF SERVICE: 10/18/2016 SUBJECTIVE: The patient was seen and examined today during hemodialysis procedure. The patient was tolerating the hemodialysis procedure well. No active complaints. As reported by the patient's floor nurses today morning, he had a brief episode of blank stare in the air, along with tonic-clonic convulsions of the body that lasted less than a minute; and after that, the patient regained consciousness. There was no loss of bowel or bladder control. The patient already has history of seizure disorder, and he takes Keppra. REVIEW OF SYSTEMS: The patient denies any fever, chills, rigors, headache, nausea, vomiting, chest pain, shortness of breath, pain abdomen, constipation, or diarrhea. The rest of review of systems is negative. OBJECTIVE: VITAL SIGNS: Temperature is 96.1 degrees Fahrenheit, blood pressure is 129/58, pulse is 71, respiratory rate of 18, saturating 99% on room air. Intake and output: There is no urine output recorded. Weight on the bed scale is not available. PHYSICAL EXAMINATION: GENERAL: The patient is awake, alert, and oriented times three. Laying in the bed. No apparent distress. HEAD AND NECK EXAMINATION: Extraocular muscles intact. Mucous membranes are moist. Neck is supple. There is no jugular venous distention (JVD). CARDIOVASCULAR: S1, S2, regular rate. No murmur, rub, and gallop. RESPIRATORY: Chest is clear to auscultation bilaterally. Bilateral equal air entry. No rales or rhonchi. ABDOMEN: Is soft. Positive bowel sounds. Nontender. No ascites. No organomegaly. EXTREMITIES: No clubbing or cyanosis. Pulses are 2+. Surgical scar on the right thigh. SKIN: No rashes or ulcers. CENTRAL NERVOUS SYSTEM (MEAT BONER AND SLICER): No focal neurological deficit. Power is 5/5. LABORATORY REVIEW: CBC showed WBC of 6.7, hemoglobin 9.7, platelets of 264. BMP showed sodium 143, potassium 4.6, chloride 102, bicarbonate 31, BUN 57, creatinine 7.5, magnesium is 3. Keppra level is pending. CURRENT MEDICATIONS: The patient's medications were all reviewed by me. There is no change in the medications at this time. ASSESSMENT: An 81-year-old male with past medical history of end-stage renal disease, on hemodialysis, history of seizure disorder, admitted this time after hip fracture, status post right hip open reduction/internal fixation. PLAN: 1. End-stage renal disease, on hemodialysis. The patient is getting hemodialyzed according to his regular schedule of Sunday, Sunday, Sunday. We shall try to do an ultrafiltration of about 2 liters as tolerated by his blood pressure. 2. Seizure disorder. Breakthrough seizure. The patient is currently on Keppra 500 mg by mouth twice a day. Continue current dose. I have ordered the Keppra level, as well, which is pending; and I have requested a neurology consult on this patient, as well. 3. Anemia secondary to end-stage renal disease. The patient is currently getting Aranesp 100 mcg intravenous (IV) with hemodialysis, and he is also getting Venofer 100 mg IV with hemodialysis, as well. His hemoglobin is still below target, but it is improving. 4. Hypertension. Blood pressure is well controlled at this time. Continue current dose of Coreg and Cardura. 5. Chronic kidney disease, mineral bone disease. Continue current dose of Renvela with meals. His phosphorus level has normalized now. 6. Right hip fracture, status post open reduction/internal fixation of right hip on 10/07/2016. The patient is getting physical therapy, and he is improving.
[2016-10-18] MEDS ORDERED: HEPARIN 1,000 UNITS/ML 10ML VIAL (FOR RADIOLOGY& DIALYSIS ONLY) IV ONE (12:00)
--- NOTE | 2016-10-18 12:50 | IPNPDOC ---
[facility] Progress Note PROGRESS NOTE DATE OF ADMISSION: 10/10/2016 DATE OF SERVICE: 10/18/2016 IDENTIFICATION STATEMENT: Patient is an 81-year-old gentleman with a history of multiple medical comorbidities including atrial fibrillation, end-stage renal disease on hemodialysis 3 times a week and subarachnoid hemorrhage in August 2016 with subsequent episodes of seizures who sustained a mechanical fall in his home on 10/06/2016. He was found to have a right displaced intertrochanteric proximal femur fracture. After medical clearance, he underwent an ORIF with short gamma nail on 10/07/[address] Reji Capps. PAST MEDICAL HISTORY: Hypertension Atrial fibrillation (usually on Coumadin, but had not been restarted since his subarachnoid hemorrhage in August 2016) End-stage renal disease on hemodialysis 3 times a week Subarachnoid hemorrhage in August 2016 secondary to a fall. Two seizures in August 2016 that he reports were during dialysis. Gout left great toe (last episode ~1 yr ago) PAST SURGICAL HISTORY: Bilateral knee replacements Tonsillectomy ALLERGIES: Penicillin MEDICATIONS: Lasix 80 mg daily Sinemet 10/100 1 tab by mouth daily at bedtime vitamin B complex/C/folic acid one tab by mouth daily Cardura 8 mg by mouth daily at bedtime Keppra 500 mg by mouth twice a day Renvela 1600 mg by mouth with meals MiraLAX 1 packet by mouth daily Percocet 1 tab every 4 hours when necessary pain Timoptic 0.5% 1 drop both eyes daily Synthroid 0.2 mg daily Xalatan 0.005% one drop both eyes daily at bedtime Keppra 500 mg by mouth twice a day Zocor 40 mg by mouth every afternoon Colace 100 mg by mouth twice a day Vistaril 25 mg by mouth 3 times a day when necessary anxiety Acetaminophen 650 mg by mouth every 4 hours as needed SUBJECTIVE(Note: patients present for part of interview this morning and assisted in recounting seizure history ): Patient w/o complaints this morning. Feels well. Had BM. No left toe pain. Slept well, pain minimal. Denies any CP, SOB, N/V, diaphoresis. Per nurse, patient had a transient episode of leaning to the right and arm shaking when sitting up this morning. Episode lasted seconds. VS were done and WNL. Patient states he does not know what happened, thinks he was leaning to pick something up. He feels well. Denies any lethargy, lightheadedness, dizziness, vertigo, headache or new weakness. It was not similar to the episode he had in [place] in the Fall 2015. The episode in [place] that he was told was a seizure occurred after dialysis and consisted of right sided weakness with speech difficulty. Also, per the he was unable to do the finger to nose test. The symptoms at that time lasted for about 24 hours and then resolved. He was seen in neurology clinic and has a follow-up appointment with a neurologist in [place] in November. He states they did multiple imaging of the head. VITAL SIGNS: Temperature 96.1F, pulse 71, respiratory rate 20, blood pressure 129/58, 99% saturation on room air. PHYSICAL EXAMINATION: GENERAL: Well nourished, well developed, sitting up in bed, no acute distress. HEENT: Normocephalic, atraumatic. PERRL, EOMI, no facial droop CARDIOVASCULAR: S1, S2, irregular rate. No bilateral pedal edema or calf tenderness LUNGS: Clear to auscultation bilaterally no wheezing rhonchi or rales ABDOMEN: Soft, nontender, nondistended. Normoactive bowel sounds throughout. MUSCULOSKELETAL: Well-healed bilateral surgical scars on his knees. MMT: 5/5 strength bilateral upper limbs in all major muscle groups. 1+/5 right hip flexors, 4/5 right knee extension flexion, 5/5 right dorsiflexion, plantar flexion and EHL. 5/5 left hip flexors, left knee extension, flexion, dorsiflexion, plantar flexion and EHL. NEUROLOGICAL: Alert and oriented x 3. Answers all questions appropriately. Memory seems intact. Able to follow commands without difficulty. SKIN: Right lateral hip and thigh surgical site with dressing. LABORATORY DATA: 10/18/16: reviewed, see below 10/10/2016: Hemoglobin 8.8, hematocrit 25.6, WBC 5.0, sodium 142, potassium 4.4 , chloride 100, carbon dioxide 32, BUN 36, creatinine 5.60, GFR 10.4, glucose 100, PT 15.2, INR 1.19. IMAGING: X-ray of the hip 10/07/2015: Right displaced intertrochanteric proximal femur fracture. FUNCTIONAL STATUS, Premorbid: Independent with ADLs and ambulation ASSESSMENT AND PLAN: 1. Displaced intertrochanteric proximal femur fracture status post ORIF now with gait abnormality and dysfunctional ADLs: PWB right lower limb. Patient continues to make progress. Continue daily physical and occupational therapy. Activity modification to allow for hemodialysis 3 times per week. Rehabilitation nursing for bladder, bowel, medication management and wound care. 2. Episode weakness/arm shaking: Etiology unclear at this time. Symptoms do not seem similar to the symptoms patient experienced in [place]. No post-ictal state. No residual signs/symptoms. Differential includes transient episode of hypotension. Prolactin level has been done (approximately 15-20min after episode ). Will also obtain orthostatic vital signs. Dr. Smith has ordered a keppra level and neurology consult. 3. Anemia (acute blood loss confounded by chronic kidney disease): Status post blood transfusion on 10/09/2016. S/p Darbepoiting and Venofer. Hgb ~ trending up. 4. End-stage renal disease on hemodialysis: As above, activity modification to allow for hemodialysis 3 times per week, MWF. Treatment recommendations will be per the nephrology service. 5. Atrial fibrillation: Rate controlled. Restart yesterday 10/17/16 at lower dose. AM PT/INR. 6. Constipation: Resolved. S/p increase senna 10/17/16 and changed Miralax to daily. Continue Colace at current dose. Continue milk of magnesia on an as- needed basis. 6. Pain: Patient hasnt required any pain medication. Continue intermittent ice to the right hip. 7. Diet/malnutrition: Maintain patient on a regular diet. Prealbumin low. Continue Nepro supplements. / Vital Signs Vital Sign - Last 24 Hours 10/17/16 10/17/16 10/17/16 10/17/16 14:00 17:29 17:30 20:00 Temp 97.1 97.7 Pulse 69 77 77 62 Resp 20 18 B/P 112/58 118/59 118/59 120/60 Pulse Ox 100 99 O2 Delivery Room Air 10/17/16 10/17/16 10/17/16 10/18/16 20:00 20:28 23:46 05:33 Pulse 59 72 B/P 120/60 125/58 135/59 O2 Delivery Room Air 10/18/16 10/18/16 10/18/16 06:00 08:45 08:55 Temp 96.4 96.1 Pulse 72 71 Resp 18 20 B/P 135/59 129/58 Pulse Ox 99 99 O2 Delivery Room Air Room Air Room Air Laboratory Data CBC/BMP Laboratory Tests 10/18/16 06:42 Calcium Level 9.6, Red Blood Count 2.81 L, Mean Corpuscular Volume 109.1 H, Mean Corpuscular Hemoglobin 34.7 H, Mean Corpuscular Hemoglobin Concent 31.8 L, Red Cell Distribution Width 17.1 H Labs 24H Laboratory Tests 2 10/18/16 06:42: Anion Gap 10, Blood Urea Nitrogen 57H, Creatinine 7.51H, Sodium Level 143, Potassium Level 4.6, Chloride Level 102, Carbon Dioxide Level 31, Calcium Level 9.6, Glomerular Filtration Rate 7.4L, Magnesium Level 3.0H, Phosphorus Level 4.8 , Prealbumin 22.7, Prothromb Time International Ratio 2.47, Prothrombin Time 26.8H 10/18/16 10:40: Allergies Allergies: Coded Allergies: Penicillins (Unverified Allergy, Intermediate, HIVES, 10/06/16) Current Medications Current Medications Current Medications Acetaminophen (Tylenol) 650 mg Q4HP PRN PO MILD PAIN (PS 1-4) Last administered on 10/17/16 20:29; Start 10/10/16 at 15:45; Stop 11/09/16 at 15:44 Acetaminophen/ Hydrocodone Bitart (Mona, Anexsia 5/325) 1 tab Q4HP PRN PO MODERATE/SEVERE PAIN (PS 5-10); Start 10/10/16 at 15:45; Stop 10/24/16 at 15:44 Allopurinol (Zyloprim) 300 mg DAILY PO Last administered on 10/11/16 08:33; Start 10/11/16 at 09:00; Stop 10/12/16 at 07:11; Status DC Carbidopa/Levodopa (Sinemet 10/100) 1 tab QHS PO Last administered on 20:29; Start 10/10/16 at 21:00; Stop 11/09/16 at 20:59 Carvedilol (COReg) 3.125 mg Q6H PO Last administered on 10/18/16 05:33; Start 10/10/16 at 18:00; Stop 11/09/16 at 17:59 Darbepoetin Jin (Aranesp (Dialysis Use)) 100 mcg HD IV ; Start 10/11/16 at 10: 45; Stop 11/10/16 at 10:44 Docusate Sodium (Colace) 100 mg BID PO Last administered on 10/18/16 08:45; Start 10/10/16 at 21:00; Stop 11/09/16 at 20:59 Doxazosin Mesylate (Cardura) 8 mg QHS PO Last administered on 10/17/16 20:28; Start 10/10/16 at 21:00; Stop 11/09/16 at 20:59 Furosemide (Lasix) 80 mg DAILY PO Last administered on 10/18/16 08:47; Start 10/11/16 at 09:00; Stop 11/10/16 at 08:59 Heparin Sodium (Heparin) 1,000 units ONCE ONCE IV ; Start 10/11/16 at 11:15; Stop 10/11/16 at 11:16; Status DC Heparin Sodium (Heparin) 1,000 units ONCE ONCE IV ; Start 10/13/16 at 13:00; Stop 10/13/16 at 13:01; Status DC Heparin Sodium (Heparin) 1,000 units ONCE ONCE IV ; Start 10/16/16 at 10:45; Stop 10/16/16 at 10:46; Status DC Heparin Sodium (Heparin) 1,000 units ONCE ONCE IV ; Start 10/18/16 at 12:00; Stop 10/18/16 at 12:01; Status DC Hydroxyzine HCl (Vistaril) 25 mg TID PRN PO ANXIETY; Start 10/10/16 at 16:00; Stop 11/09/16 at 15:59 Iron (Venofer) 100 mg HD IV ; Start 10/12/16 at 07:15; Stop 11/11/16 at 07:14 Latanoprost (Xalatan 0.005% Op Soln) 1 drop QHS OU Last administered on 20:34; Start 10/10/16 at 21:00; Stop 11/09/16 at 20:59 Levetiracetam (Keppra) 500 mg BID PO Last administered on 10/18/16 08:47; Start 10/10/16 at 21:00; Stop 11/09/16 at 20:59 Levothyroxine Sodium (Synthroid) 0.2 mg DAILY@06 PO Last administered on 05:33; Start 10/11/16 at 06:00; Stop 11/10/16 at 05:59 Magnesium Hydroxide (Milk Of Magnesia) 30 ml DAILYPRN PRN PO CONSTIPATION Last administered on 10/11/16 08:33; Start 10/10/16 at 15:45; Stop 11/09/16 at 15:44 Magnesium Citrate (Citrate Of Magnesia) 300 ml ONCE ONCE PO Last administered on 10/12/16 10:30; Start 10/12/16 at 10:00; Stop 10/12/16 at 10:05; Status DC Polyethylene Glycol (Miralax) 1 pkt DAILY PO ; Start 10/18/16 at 09:00; Stop at 08:59 Polyethylene Glycol (Miralax) 1 pkt DAILY PRN PO CONSTIPATION Last administered on 10/17/16 10:43; Start 10/10/16 at 15:45; Stop 10/17/16 at 11:39 ; Status DC Senna (Senokot) 1 tab BID PO Last administered on 10/18/16 08:47; Start at 21:00; Stop 11/15/16 at 20:59 Senna (Senokot) 1 tab ONCE ONCE PO Last administered on 10/16/16 11:18; Start 10/16/16 at 11:00; Stop 10/16/16 at 11:01; Status DC Senna (Senokot) 1 tab QHS PO Last administered on 10/15/16 20:53; Start at 21:00; Stop 10/16/16 at 10:47; Status DC Sevelamer Carbonate (Renvela) 1,600 mg WM PO Last administered on 10/18/16 08: 47; Start 10/10/16 at 18:00; Stop 11/09/16 at 17:59 Simvastatin (Zocor) 40 mg QPM@18 PO Last administered on 10/17/16 17:30; Start 10/10/16 at 18:00; Stop 11/09/16 at 17:59 Timolol Maleate (Timoptic-Xe 0.5% [facility]) 1 drop DAILY OU Last administered on 10/18/16 08:48; Start 10/11/16 at 09:00; Stop 11/10/16 at 08:59 Vitamin B Complex/ Vit C/Folic Acid (Nephro-Annie Rx) 1 tab QPM PO Last administered on 10/17/16 20:29; Start 10/11/16 at 21:00; Stop 11/10/16 at 20:59 Warfarin Sodium (Coumadin) 2.5 mg 1T@17 ONCE PO Last administered on 17:30; Start 10/17/16 at 17:00; Stop 10/17/16 at 17:01; Status DC Warfarin Sodium (Coumadin) 5 mg DAILY@17 PO Last administered on 10/12/16 17: 29; Start 10/10/16 at 17:00; Stop 10/13/16 at 10:20; Status DC JENNIFER HAMPTON MD Oct 18, 2016 12:50
[2016-10-18 13:26] LABS: PROLACTIN 9.2 NG/ML (2.1-17.7)
[2016-10-18 15:34] VITALS: BP_SYST 108; BP_SYST 90; BP_SYST 91; BP_DIAS 52; BP_DIAS 53; BP_DIAS 56
[2016-10-18] MEDS ORDERED: WARFARIN SOD 2.5 MG TAB PO ONE (17:00)
[2016-10-18] MEDS: SIMVASTATIN 40 MG TAB PO SCH (17:20)
[2016-10-18 20:31] VITALS: BP 112/57
[2016-10-18] MEDS: LATANOPROST 0.005% OPHTH SOLN 2.5 ML OU SCH (21:00)
[2016-10-18] MEDS: DOXAZOSIN MESYLATE 4 MG TAB PO SCH (21:00)
[2016-10-18] MEDS: SINEMET 10-100 MG TAB PO SCH (21:00)
[2016-10-18] MEDS: NEPHRO-VIT TAB (NEPHROCAPS) PO SCH (21:00)
[2016-10-19 06:11] VITALS: BP 121/59
[2016-10-19] MEDS: LEVOTHYROXINE 0.1 MG TAB (100 MCG) PO SCH (06:24)
[2016-10-19] MEDS: CARVedilol 3.125 MG TAB PO SCH ×3 (06:24→18:00)
[2016-10-19 07:00] LABS: INR 2.3
[2016-10-19] MEDS: MIRALAX *UNIT DOSE* 17GM PACKET PO SCH (08:57)
[2016-10-19] MEDS: TIMOLOL XE GFS 0.5% OPHTH 5 ML OU SCH (08:58)
[2016-10-19] MEDS: ACETAMINOPHEN TAB 650MG DOSE (2X325MG) PO PRN (08:59)
[2016-10-19] MEDS: (RENVELA) SEVELAMER **CARBONate** 800 MG TAB PO SCH ×3 (09:00→18:01)
[2016-10-19] MEDS: levETIRAcetam 250MG TABLET (KEPPRA) PO SCH ×2 (09:01→20:35)
[2016-10-19] MEDS: SENNA 8.6 MG TAB (SENOKOT) PO SCH ×2 (09:01→20:35)
[2016-10-19] MEDS: DOCUSATE SODIUM 100 MG CAP PO SCH ×2 (09:01→20:35)
[2016-10-19] MEDS: FUROSEMIDE 80 MG TAB PO SCH (09:02)
--- NOTE | 2016-10-19 09:17 | CR ---
DATE OF CONSULTATION: 10/18/2016 Reason for consultation is suspected seizure. HISTORY OF PRESENTING ILLNESS: Carlos Savage is an 81-year-old male with past medical history significant for traumatic fall in August 2016 resulting in subarachnoid hemorrhage while on Coumadin. Since then, the patient has had two seizures reported to have recurred post dialysis. Earlier in the morning, the patient was noted to have rhythmic shaking of the right upper extremity with a blank stare, lasting a few moments, resulting without any postictal state. The patient currently does take Keppra 5 mg twice a day. He is in the hospital recovering after an open reduction, internal fixation (ORIF) surgery for a right hip fracture after a fall. He states he fell approximately 2 weeks ago but did not hit his head. He is compliant with the use of his Keppra. He does not have any other significant history for seizure disorder. PAST MEDICAL HISTORY: 1. Hypertension, atrial fibrillation. Was on Coumadin until the subarachnoid hemorrhage and fall in August. Follows with Dr. Arturo Najera at [facility]. 2. End-stage renal disease on hemodialysis three times a week. 3. Subarachnoid hemorrhage August 2016 secondary to fall. 4. Gout. PAST SURGICAL HISTORY: 1. Bilateral knee replacement. 2. Tonsillectomy. 3. Recent ORIF, which showed gamma nail placed 10/07/2016. ALLERGIES: PENICILLIN. PRESENT MEDICATIONS: - Lasix 80 mg by mouth daily - Sinemet 10/100 one tablet by mouth nightly - vitamin B complex, folic acid, vitamin C by mouth daily - Cardura 8 mg by mouth nightly - Keppra 500 mg by mouth twice a day - Renvela 1600 mg by mouth daily with meals - MiraLAX one packet by mouth daily - Percocet one tablet every 4 hours as needed, pain - Timoptic 0.5% drops both eyes daily - Synthroid 0.2 mg by mouth daily - Xalatan 0.005% one drop both eyes daily at bedtime - Zocor 40 mg by mouth daily - Colace 100 mg by mouth twice a day - Vistaril 25 mg by mouth three times a day as needed, anxiety - acetaminophen 650 mg by mouth every 4 hours as needed, pain REVIEW OF SYSTEMS: 14-point review of systems obtained and is negative except as per history of present illness (HPI). PHYSICAL EXAMINATION: Blood pressure is 129/58, pulse rate 71, respiratory rate is 20, temperature is 96.1 degrees Fahrenheit. Current height is 5 feet 10 inches. Current weight is 77 kg. Patient is awake, alert, oriented to person, place and time. Speech, language, comprehension are intact without any aphasia or dysarthria. Pupils are 2.5 mm, round, reactive to light. Extraocular movements are intact in all directions without nystagmus. Sensation V1, V2, V3 is intact to light touch bilaterally. No facial asymmetry. Palate elevates symmetrically. Tongue is midline. Patient has normal strength of the upper extremities including deltoids, biceps, triceps, handgrip. Iliopsoas on the left and tibialis anterior bilaterally tested and found to be within normal limits. Right leg limited testing due to recent surgery. Sensory is intact in all four extremities. Deep tendon reflexes are decreased in the lower extremities. Romberg testing deferred. Coordination: Normal [id number] without any signs of ataxia or dysmetria. ASSESSMENT: Suspect complex partial seizure with right upper extremity shaking with altered consciousness lasting few moments. PLAN: 1. Recommend to increase Keppra to 750 mg by mouth twice a day. 2. Recommend obtaining EEG. 3. Recommended obtaining a more recent head CT without contrast.
[2016-10-19] MEDS ORDERED: levETIRAcetam 250MG TABLET (KEPPRA) PO ONE (09:30)
--- NOTE | 2016-10-19 10:19 | REP ---
CT HEAD WITHOUT CONTRAST: HISTORY: Seizure. Areas of decreased attenuation are present in the periventricular white matter. This represents small vessel ischemic disease. There is no intraparenchymal hemorrhage, mass, or midline shift. The ventricular system and cortical sulci are dilated consistent with mild volume loss. There is no extracerebral collection. The visualized sinuses are clear. IMPRESSION: 1. Small vessel ischemic disease. 2. Mild volume loss. Signed by Yoni Duenas MD 10/19/2016 10:24 A
--- NOTE | 2016-10-19 11:54 | IPNPDOC ---
Date/Time Seen The patient was seen on 10/19/16 at 11:48. Progress Note DATE OF ENCOUNTER: 10/19/2016 SUBJECTIVE: Mr. Savage was seen this morning at bedside in the acute rehab floor. He had hemodialysis yesterday which was well tolerated, 2000ml of fluid was removed. He continues to work with physical therapy. No acute overnight issues. No recurrence of seizure-like activity. Review of systems is negative for chest pain, palpitations, shortness of breath , nausea, vomiting, abdominal pain, diarrhea, fevers, chills, headache, lightheadedness, dizziness. Hip pain is well controlled. Patient states that he is ambulating further. His appetite is good. OBJECTIVE: Vital Signs Date Time Temp Pulse Resp B/P Pulse Ox O2 Delivery O2 Flow Rate FiO2 10/19/16 09:00 Room Air 10/19/16 06:24 67 121/59 10/19/16 06:11 98.4 18 99 I&O- Last 24 Hours up to 6 AM 10/19/16 06:00 Intake Total 600 ml Output Total 2050 ml Balance -1450 ml General: Patient is awake and alert. In no acute distress. HEENT: Normocephalic, atraumatic. Extraocular muscles are intact. Moist mucosa. Neck: Supple. No thyromegaly. No jugular venous distension appreciated. Heart: Normal S1, S2. Regular rate and rhythm. Positive for systolic ejection murmur. Lungs: Clear to auscultation bilaterally. No rales, rhonchi or wheezing. Abdomen: Soft, nontender, nondistended. Positive bowel sounds. Extremities: No cyanosis or lower extremity edema. Positive pedal pulses bilaterally. SKIN: Warm and dry. Good skin turgor. No rashes or skin lesions appreciated. Neurologic: No focal deficits. LABORATORY DATA: 10/18/16 06:42 Calcium Level 9.6, Red Blood Count 2.81 L, Mean Corpuscular Volume 109.1 H, Mean Corpuscular Hemoglobin 34.7 H, Mean Corpuscular Hemoglobin Concent 31.8 L, Red Cell Distribution Width 17.1 H ASSESSMENT AND PLAN: 1. End-stage renal disease. Patient had hemodialysis yesterday where 2000ml was removed, he tolerated it well. Continue with normal schedule of Sunday, Sunday and Sunday. Next dialysis session is tomorrow 10/20. 2. Seizure disorder. Patient had a breakthrough seizure in the morning of 10/18. Neurology was consulted and recommended CT of the head without contrast. This revealed small vessel ischemic disease and mild volume loss, no acute changes. EEG has been ordered. Keppra level is pending. Keppra has been increased to 750 mg twice daily. No recurrence of seizure-like activity since. 3. Acute blood loss anemia in addition to chronic anemia. The patient had acute blood loss due to his right hip fracture status post ORIF. He received 2 units of packed red blood cells during dialysis on 10/09. He receives Aranesp and Venofer during hemodialysis. 4. Hypertension. Blood pressure is stable. He is on Coreg, Lasix and Cardura. 5. Hyperphosphatemia. Continue with Renvela 1600 mg by mouth with meals. 6. Right hip fracture from fall. The patient is status post open reduction, internal fixation (ORIF) on 10/07. Pain is controlled and he is undergoing physical therapy. GME ATTESTATION GME ATTESTATION My preceptor for this patient encounter was physically present in the building during the encounter and was fully available. As needed, all aspects of the patient interview, examination, medical decision making process, and medical care plan development were reviewed and approved by the preceptor. Preceptor is aware and concurs with the plan as stated in the body of this note and will attest to such by his/her cosignature. ATTENDING NOTE Nephrology : Pt was examined at bedside this AM. I agree with the above assessment and recommendations. LAKESHIA AGRAWAL DO Oct 19, 2016 11:54 JENI LUNA MD Oct 19, 2016 21:45
--- NOTE | 2016-10-19 12:59 | IPNPDOC ---
Pathology Laboratory Director Progress Note PROGRESS NOTE DATE OF ADMISSION: 10/10/2016 DATE OF SERVICE: 10/19/2016 IDENTIFICATION STATEMENT: Patient is an 81-year-old gentleman with a history of multiple medical comorbidities including atrial fibrillation, end-stage renal disease on hemodialysis 3 times a week and subarachnoid hemorrhage in August 2016 with subsequent episodes of seizures who sustained a mechanical fall in his home on 10/06/2016. He was found to have a right displaced intertrochanteric proximal femur fracture. After medical clearance, he underwent an ORIF with short gamma nail on 10/07/[address] Reji Capps. PAST MEDICAL HISTORY: Hypertension Atrial fibrillation (usually on Coumadin, but had not been restarted since his subarachnoid hemorrhage in August 2016) End-stage renal disease on hemodialysis 3 times a week Subarachnoid hemorrhage in August 2016 secondary to a fall. Two seizures in August 2016 that he reports were during dialysis. Gout left great toe (last episode ~1 yr ago) PAST SURGICAL HISTORY: Bilateral knee replacements Tonsillectomy ALLERGIES: Penicillin MEDICATIONS: Lasix 80 mg daily Sinemet 10/100 1 tab by mouth daily at bedtime vitamin B complex/C/folic acid one tab by mouth daily Cardura 8 mg by mouth daily at bedtime Keppra 750mg by mouth twice a day Renvela 1600 mg by mouth with meals MiraLAX 1 packet by mouth daily Percocet 1 tab every 4 hours when necessary pain Timoptic 0.5% 1 drop both eyes daily Synthroid 0.2 mg daily Xalatan 0.005% one drop both eyes daily at bedtime Keppra 500 mg by mouth twice a day Zocor 40 mg by mouth every afternoon Colace 100 mg by mouth twice a day Vistaril 25 mg by mouth 3 times a day when necessary anxiety Acetaminophen 650 mg by mouth every 4 hours as needed SUBJECTIVE: Patient w/o complaints this morning. Feels well. Slept well. Had BM. No left toe pain. Pain minimal. No further episodes. Denies any CP, SOB, N/V , diaphoresis. VITAL SIGNS: Temperature 98.4F, pulse 53, respiratory rate 18, blood pressure 98/54, 99% saturation on room air. PHYSICAL EXAMINATION: GENERAL: Well nourished, well developed, sitting up in bed, no acute distress. HEENT: Normocephalic, atraumatic. PERRL, EOMI, no facial droop CARDIOVASCULAR: S1, S2, irregular rate. No bilateral pedal edema or calf tenderness LUNGS: Clear to auscultation bilaterally no wheezing rhonchi or rales ABDOMEN: Soft, nontender, nondistended. Normoactive bowel sounds throughout. MUSCULOSKELETAL: Well-healed bilateral surgical scars on his knees. MMT: 5/5 strength bilateral upper limbs in all major muscle groups. 1+/5 right hip flexors, 4/5 right knee extension flexion, 5/5 right dorsiflexion, plantar flexion and EHL. 5/5 left hip flexors, left knee extension, flexion, dorsiflexion, plantar flexion and EHL. NEUROLOGICAL: Alert and oriented x 3. Answers all questions appropriately. Memory seems intact. Able to follow commands without difficulty. SKIN: Right lateral hip and thigh surgical site with dressing. LABORATORY DATA: 10/18/16: reviewed, see below 10/10/2016: Hemoglobin 8.8, hematocrit 25.6, WBC 5.0, sodium 142, potassium 4.4 , chloride 100, carbon dioxide 32, BUN 36, creatinine 5.60, GFR 10.4, glucose 100, PT 15.2, INR 1.19. IMAGING: X-ray of the hip 10/07/2015: Right displaced intertrochanteric proximal femur fracture. FUNCTIONAL STATUS, Premorbid: Independent with ADLs and ambulation ASSESSMENT AND PLAN: 1. Displaced intertrochanteric proximal femur fracture status post ORIF now with gait abnormality and dysfunctional ADLs: PWB right lower limb. Patient continues to make progress. Continue daily physical and occupational therapy. Activity modification to allow for hemodialysis 3 times per week. Rehabilitation nursing for bladder, bowel, medication management and wound care. 2. Episode weakness/arm shaking: No further episodes. Dr. Macedo c/s appreciated. Keppra has been increased, CT done. EEG will be done Sunday during dialysis. Additionally, spoke with patients again who will clarify with patient neurologist in [place] if if he had a previous EEG. 3. Anemia (acute blood loss confounded by chronic kidney disease): Status post blood transfusion on 10/09/2016. S/p Darbepoiting and Venofer. Hgb ~ trending up. 4. End-stage renal disease on hemodialysis: As above, activity modification to allow for hemodialysis 3 times per week, MWF. Treatment recommendations will be per the nephrology service. 5. Atrial fibrillation: Rate controlled. Restart 10/17/16 at lower dose. AM PT/ INR. 6. Constipation: Resolved. S/p increase senna 10/17/16 and changed Miralax to daily. Continue Colace at current dose. Continue milk of magnesia on an as- needed basis. 6. Pain: Patient hasnt required any pain medication. Continue intermittent ice to the right hip. 7. Diet/malnutrition: Maintain patient on a regular diet. Prealbumin low. Continue Nepro supplements. / Vital Signs Vital Sign - Last 24 Hours 10/18/16 10/18/16 10/18/16 10/18/16 15:34 17:19 19:26 20:31 Temp 98.2 Pulse 69 64 64 70 91 Resp 20 B/P 108/56 122/58 112/57 90/52 91/53 Pulse Ox 97 O2 Delivery Room Air Room Air 10/18/16 10/18/16 10/19/16 10/19/16 21:00 23:36 06:11 06:24 Temp 98.4 Pulse 68 67 67 Resp 18 B/P 112/57 124/54 121/59 121/59 Pulse Ox 99 O2 Delivery Room Air 10/19/16 10/19/16 09:00 12:00 Pulse 53 B/P 98/54 O2 Delivery Room Air Laboratory Data Labs 24H Laboratory Tests 2 10/19/16 06:40: Prothromb Time International Ratio 2.30, Prothrombin Time 25.4H Allergies Allergies: Coded Allergies: Penicillins (Unverified Allergy, Intermediate, HIVES, 10/06/16) Current Medications Current Medications Current Medications Acetaminophen (Tylenol) 650 mg Q4HP PRN PO MILD PAIN (PS 1-4) Last administered on 10/19/16 08:59; Start 10/10/16 at 15:45; Stop 11/09/16 at 15:44 Acetaminophen/ Hydrocodone Bitart ([place], Anexsia 5/325) 1 tab Q4HP PRN PO MODERATE/SEVERE PAIN (PS 5-10); Start 10/10/16 at 15:45; Stop 10/24/16 at 15:44 Allopurinol (Zyloprim) 300 mg DAILY PO Last administered on 10/11/16 08:33; Start 10/11/16 at 09:00; Stop 10/12/16 at 07:11; Status DC Carbidopa/Levodopa (Sinemet ) 1 tab QHS PO Last administered on 21:00; Start 10/10/16 at 21:00; Stop 11/09/16 at 20:59 Carvedilol (COReg) 3.125 mg Q6H PO Last administered on 10/19/16 06:24; Start 10/10/16 at 18:00; Stop 11/09/16 at 17:59 Darbepoetin Jin (Aranesp (Dialysis Use)) 100 mcg HD IV ; Start 10/11/16 at 10: 45; Stop 11/10/16 at 10:44 Docusate Sodium (Colace) 100 mg BID PO Last administered on 10/19/16 09:01; Start 10/10/16 at 21:00; Stop 11/09/16 at 20:59 Doxazosin Mesylate (Cardura) 8 mg QHS PO Last administered on 10/18/16 21:00; Start 10/10/16 at 21:00; Stop 11/09/16 at 20:59 Furosemide (Lasix) 80 mg DAILY PO Last administered on 10/19/16 09:02; Start 10/11/16 at 09:00; Stop 11/10/16 at 08:59 Heparin Sodium (Heparin) 1,000 units ONCE ONCE IV ; Start 10/11/16 at 11:15; Stop 10/11/16 at 11:16; Status DC Heparin Sodium (Heparin) 1,000 units ONCE ONCE IV ; Start 10/13/16 at 13:00; Stop 10/13/16 at 13:01; Status DC Heparin Sodium (Heparin) 1,000 units ONCE ONCE IV ; Start 10/16/16 at 10:45; Stop 10/16/16 at 10:46; Status DC Heparin Sodium (Heparin) 1,000 units ONCE ONCE IV ; Start 10/18/16 at 12:00; Stop 10/18/16 at 12:01; Status DC Hydroxyzine HCl (Vistaril) 25 mg TID PRN PO ANXIETY; Start 10/10/16 at 16:00; Stop 11/09/16 at 15:59 Iron (Venofer) 100 mg HD IV ; Start 10/12/16 at 07:15; Stop 11/11/16 at 07:14 Latanoprost (Xalatan 0.005% Op Soln) 1 drop QHS OU Last administered on 21:00; Start 10/10/16 at 21:00; Stop 11/09/16 at 20:59 Levetiracetam (Keppra) 250 mg ONCE ONCE PO Last administered on 10/19/16 09: 34; Start 10/19/16 at 09:30; Stop 10/19/16 at 09:31; Status DC Levetiracetam (Keppra) 500 mg BID PO Last administered on 10/19/16 09:01; Start 10/10/16 at 21:00; Stop 10/19/16 at 09:29; Status DC Levetiracetam (Keppra) 750 mg BID PO ; Start 10/19/16 at 21:00; Stop 11/18/16 at 20:59 Levothyroxine Sodium (Synthroid) 0.2 mg DAILY@06 PO Last administered on 06:24; Start 10/11/16 at 06:00; Stop 11/10/16 at 05:59 Magnesium Hydroxide (Milk Of Magnesia) 30 ml DAILYPRN PRN PO CONSTIPATION Last administered on 10/11/16 08:33; Start 10/10/16 at 15:45; Stop 11/09/16 at 15:44 Magnesium Citrate (Citrate Of Magnesia) 300 ml ONCE ONCE PO Last administered on 10/12/16 10:30; Start 10/12/16 at 10:00; Stop 10/12/16 at 10:05; Status DC Polyethylene Glycol (Miralax) 1 pkt DAILY PO Last administered on 10/19/16 08: 57; Start 10/18/16 at 09:00; Stop 11/17/16 at 08:59 Polyethylene Glycol (Miralax) 1 pkt DAILY PRN PO CONSTIPATION Last administered on 10/17/16 10:43; Start 10/10/16 at 15:45; Stop 10/17/16 at 11:39 ; Status DC Senna (Senokot) 1 tab BID PO Last administered on 10/19/16 09:01; Start at 21:00; Stop 11/15/16 at 20:59 Senna (Senokot) 1 tab ONCE ONCE PO Last administered on 10/16/16 11:18; Start 10/16/16 at 11:00; Stop 10/16/16 at 11:01; Status DC Senna (Senokot) 1 tab QHS PO Last administered on 10/15/16 20:53; Start at 21:00; Stop 10/16/16 at 10:47; Status DC Sevelamer Carbonate (Renvela) 1,600 mg WM PO Last administered on 10/19/16 12: 13; Start 10/10/16 at 18:00; Stop 11/09/16 at 17:59 Simvastatin (Zocor) 40 mg QPM@18 PO Last administered on 10/18/16 17:20; Start 10/10/16 at 18:00; Stop 11/09/16 at 17:59 Timolol Maleate (Timoptic-Xe 0.5% Oph Gfs) 1 drop DAILY OU Last administered on 10/19/16 08:58; Start 10/11/16 at 09:00; Stop 11/10/16 at 08:59 Vitamin B Complex/ Vit C/Folic Acid (Nephro-Annie Rx) 1 tab QPM PO Last administered on 10/18/16 21:00; Start 10/11/16 at 21:00; Stop 11/10/16 at 20:59 Warfarin Sodium (Coumadin) 2.5 mg 1T@17 ONCE PO Last administered on 17:30; Start 10/17/16 at 17:00; Stop 10/17/16 at 17:01; Status DC Warfarin Sodium (Coumadin) 2.5 mg 1T@17 ONCE PO Last administered on 17:20; Start 10/18/16 at 17:00; Stop 10/18/16 at 17:01; Status DC Warfarin Sodium (Coumadin) 2.5 mg 1T@17 ONCE PO ; Start 10/19/16 at 17:00; Stop 10/19/16 at 17:01 Warfarin Sodium (Coumadin) 5 mg DAILY@17 PO Last administered on 10/12/16 17: 29; Start 10/10/16 at 17:00; Stop 10/13/16 at 10:20; Status DC JENNIFER HAMPTON MD Oct 19, 2016 12:59
[2016-10-19] MEDS: MOM 30ML SUSPENSION UDC PO PRN (13:00)
[2016-10-19 14:00] VITALS: BP 128/62
[2016-10-19] MEDS ORDERED: WARFARIN SOD 2.5 MG TAB PO ONE (17:00)
[2016-10-19] MEDS: METAMUCIL (PSYLLIUM) PACKET PO SCH (18:00)
[2016-10-19] MEDS: SIMVASTATIN 40 MG TAB PO SCH (18:01)
[2016-10-19 20:00] VITALS: BP 103/53
[2016-10-19] MEDS: NEPHRO-VIT TAB (NEPHROCAPS) PO SCH (20:34)
[2016-10-19] MEDS: SINEMET 10-100 MG TAB PO SCH (20:35)
[2016-10-19] MEDS: LATANOPROST 0.005% OPHTH SOLN 2.5 ML OU SCH (20:36)
[2016-10-19] MEDS: DOXAZOSIN MESYLATE 4 MG TAB PO SCH (20:36)
[2016-10-20 06:00] VITALS: BP 117/56
[2016-10-20] MEDS: LEVOTHYROXINE 0.1 MG TAB (100 MCG) PO SCH (06:05)
[2016-10-20] MEDS: CARVedilol 3.125 MG TAB PO SCH ×5 (06:06→23:58)
[2016-10-20 07:41] LABS: MEAN CORPUSCULAR HEMOGLOBIN 34.1 pg (27.0-33.0); MEAN CORPUSCULAR VOLUME 106.5 fl (80.0-96.0); RED CELL DISTRIBUTION WIDTH 15.6 % (11.5-14.5); WHITE BLOOD COUNT 7.6 K/mm3 (4.0-10.0)
[2016-10-20 07:42] LABS: INR 1.9
[2016-10-20 07:55] LABS: CALCIUM LEVEL 9.6 MG/DL (8.8-10.2); CREATININE FOR GFR 7.61 MG/DL (0.70-1.30); GLOMERULAR FILTRATION RATE 7.3 (>35); POTASSIUM SERUM 4.9 MEQ/L (3.5-5.1)
[2016-10-20] MEDS: DOCUSATE SODIUM 100 MG CAP PO SCH ×2 (08:27→21:08)
[2016-10-20] MEDS: (RENVELA) SEVELAMER **CARBONate** 800 MG TAB PO SCH ×3 (08:28→17:47)
[2016-10-20] MEDS: SENNA 8.6 MG TAB (SENOKOT) PO SCH ×2 (08:28→21:08)
[2016-10-20] MEDS: FUROSEMIDE 80 MG TAB PO SCH (08:28)
[2016-10-20] MEDS: levETIRAcetam 250MG TABLET (KEPPRA) PO SCH ×2 (08:28→21:08)
[2016-10-20] MEDS: METAMUCIL (PSYLLIUM) PACKET PO SCH (08:28)
[2016-10-20] MEDS: TIMOLOL XE GFS 0.5% OPHTH 5 ML OU SCH (08:29)
[2016-10-20] MEDS ORDERED: MIRALAX *UNIT DOSE* 17GM PACKET PO PRN (09:00)
[2016-10-20] MEDS ORDERED: HEPARIN 1,000 UNITS/ML 10ML VIAL (FOR RADIOLOGY& DIALYSIS ONLY) IV ONE (10:15)
--- NOTE | 2016-10-20 12:21 | IPNPDOC ---
[facility] Progress Note PROGRESS NOTE DATE OF ADMISSION: 10/10/2016 DATE OF SERVICE: 10/20/2016 IDENTIFICATION STATEMENT: Patient is an 81-year-old gentleman with a history of multiple medical comorbidities including atrial fibrillation, end-stage renal disease on hemodialysis 3 times a week and subarachnoid hemorrhage in August 2016 with subsequent episodes of seizures who sustained a mechanical fall in his home on 10/06/2016. He was found to have a right displaced intertrochanteric proximal femur fracture. After medical clearance, he underwent an ORIF with short gamma nail on 10/07/[address] Reji Capps. PAST MEDICAL HISTORY: Hypertension Atrial fibrillation (usually on Coumadin, but had not been restarted since his subarachnoid hemorrhage in August 2016) End-stage renal disease on hemodialysis 3 times a week Subarachnoid hemorrhage in August 2016 secondary to a fall. Two seizures in August 2016 that he reports were during dialysis. Gout left great toe (last episode ~1 yr ago) PAST SURGICAL HISTORY: Bilateral knee replacements Tonsillectomy ALLERGIES: Penicillin MEDICATIONS: Lasix 80 mg daily Sinemet 10/100 1 tab by mouth daily at bedtime vitamin B complex/C/folic acid one tab by mouth daily Cardura 8 mg by mouth daily at bedtime Keppra 750mg by mouth twice a day Renvela 1600 mg by mouth with meals MiraLAX 1 packet by mouth daily Percocet 1 tab every 4 hours when necessary pain Timoptic 0.5% 1 drop both eyes daily Synthroid 0.2 mg daily Xalatan 0.005% one drop both eyes daily at bedtime Keppra 500 mg by mouth twice a day Zocor 40 mg by mouth every afternoon Colace 100 mg by mouth twice a day Vistaril 25 mg by mouth 3 times a day when necessary anxiety Acetaminophen 650 mg by mouth every 4 hours as needed SUBJECTIVE: No complaints. Feels well. Slept well. Pain minimal. No further episodes. Denies any CP, SOB, N/V, diaphoresis, lighheadedness. VITAL SIGNS: Temperature 96.7F, pulse 63, respiratory rate 18, blood pressure 117/56, 98% saturation on room air. PHYSICAL EXAMINATION: GENERAL: Well nourished, well developed, sitting up in bed, no acute distress. HEENT: Normocephalic, atraumatic. PERRL, EOMI, no facial droop CARDIOVASCULAR: S1, S2, irregular rate. No bilateral pedal edema or calf tenderness LUNGS: Clear to auscultation bilaterally no wheezing rhonchi or rales ABDOMEN: Soft, nontender, nondistended. Normoactive bowel sounds throughout. MUSCULOSKELETAL: Well-healed bilateral surgical scars on his knees. MMT: 5/5 strength bilateral upper limbs in all major muscle groups. 1+/5 right hip flexors, 4/5 right knee extension flexion, 5/5 right dorsiflexion, plantar flexion and EHL. 5/5 left hip flexors, left knee extension, flexion, dorsiflexion, plantar flexion and EHL. NEUROLOGICAL: Alert and oriented x 3. Answers all questions appropriately. Able to follow commands without difficulty. SKIN: Right lateral hip and thigh surgical site with dressing. LABORATORY DATA: 10/20/16: reviewed, see below 10/10/2016: Hemoglobin 8.8, hematocrit 25.6, WBC 5.0, sodium 142, potassium 4.4 , chloride 100, carbon dioxide 32, BUN 36, creatinine 5.60, GFR 10.4, glucose 100, PT 15.2, INR 1.19. IMAGING: X-ray of the hip 10/07/2015: Right displaced intertrochanteric proximal femur fracture. FUNCTIONAL STATUS, Premorbid: Independent with ADLs and ambulation ASSESSMENT AND PLAN: 1. Displaced intertrochanteric proximal femur fracture status post ORIF now with gait abnormality and dysfunctional ADLs: PWB right lower limb. Patient continues to make progress. Continue daily physical and occupational therapy. Activity modification to allow for hemodialysis 3 times per week. Rehabilitation nursing for bladder, bowel, medication management and wound care. 2. Episode weakness/arm shaking: No further episodes. Received EEG from . Spoke with Dr. Cox again today, his assistance very much appreciated. [facility] EEG will be done Sunday during dialysis. 3. Anemia (acute blood loss confounded by chronic kidney disease): Status post blood transfusion on 10/09/2016. S/p Darbepoiting and Venofer. Hgb stable. 4. End-stage renal disease on hemodialysis: As above, activity modification to allow for hemodialysis 3 times per week, MWF. Treatment recommendations will be per the nephrology service. 5. Atrial fibrillation: Rate controlled. INR labile. Restart Coumadin 10/17/16 at lower dose.Daily PT/INR until on stable dose. 6. Constipation: Resolved. [Hx: S/p increase senna 10/17/16 and changed Miralax to daily]. Continue Colace bid. Continue milk of magnesia on an as-needed basis. 6. Pain: Adequately controlled with tylenol. Continue intermittent ice to the right hip. 7. Diet/malnutrition: Maintain patient on a regular diet. Prealbumin low. Continue Nepro supplements. / Vital Signs Vital Sign - Last 24 Hours 10/19/16 10/19/16 10/19/16 10/19/16 14:00 18:00 20:00 20:00 Temp 97.8 98.1 Pulse 50 60 67 Resp 18 18 B/P 128/62 120/50 103/53 Pulse Ox 96 98 O2 Delivery Room Air Room Air Room Air 10/19/16 10/20/16 10/20/16 10/20/16 20:36 00:00 06:00 06:06 Temp 96.7 Pulse 52 63 63 Resp 18 B/P 124/65 116/58 117/56 117/56 Pulse Ox 98 O2 Delivery Room Air 10/20/16 11:58 Pulse 63 B/P 117/56 Laboratory Data CBC/BMP Laboratory Tests 10/20/16 07:08 Calcium Level 9.6, Red Blood Count 2.84 L, Mean Corpuscular Volume 106.5 H, Mean Corpuscular Hemoglobin 34.1 H, Mean Corpuscular Hemoglobin Concent 32.0, Red Cell Distribution Width 15.6 H Labs 24H Laboratory Tests 2 10/20/16 07:08: Anion Gap 8, Blood Urea Nitrogen 55H, Creatinine 7.61H, Sodium Level 143, Potassium Level 4.9, Chloride Level 103, Carbon Dioxide Level 32, Calcium Level 9.6, Glomerular Filtration Rate 7.3L, Magnesium Level 3.0H, Prothromb Time International Ratio 1.90, Prothrombin Time 21.9H Allergies Allergies: Coded Allergies: Penicillins (Unverified Allergy, Intermediate, HIVES, 10/06/16) Current Medications Current Medications Current Medications Acetaminophen (Tylenol) 650 mg Q4HP PRN PO MILD PAIN (PS 1-4) Last administered on 10/19/16t 08:59; Start 10/10/16 at 15:45; Stop 11/09/16 at 15:44 Acetaminophen/ Hydrocodone Bitart ([place], Anexsia 5/325) 1 tab Q4HP PRN PO MODERATE/SEVERE PAIN (PS 5-10); Start 10/10/16 at 15:45; Stop 10/24/16 at 15:44 Allopurinol (Zyloprim) 300 mg DAILY PO Last administered on 10/11/16 08:33; Start 10/11/16 at 09:00; Stop 10/12/16 at 07:11; Status DC Carbidopa/Levodopa (Sinemet 10) 1 tab QHS PO Last administered on 20:35; Start 10/10/16 at 21:00; Stop 11/09/16 at 20:59 Carvedilol (COReg) 3.125 mg Q6H PO Last administered on 10/20/16 06:06; Start 10/10/16 at 18:00; Stop 11/09/16 at 17:59 Darbepoetin Jin (Aranesp (Dialysis Use)) 100 mcg HD IV ; Start 10/11/16 at 10: 45; Stop 11/10/16 at 10:44 Docusate Sodium (Colace) 100 mg BID PO Last administered on 10/20/16 08:27; Start 10/10/16 at 21:00; Stop 11/09/16 at 20:59 Doxazosin Mesylate (Cardura) 8 mg QHS PO Last administered on 10/19/16 20:36; Start 10/10/16 at 21:00; Stop 11/09/16 at 20:59 Furosemide (Lasix) 80 mg DAILY PO Last administered on 10/20/16 08:28; Start 10/11/16 at 09:00; Stop 11/10/16 at 08:59 Heparin Sodium (Heparin) 1,000 units ONCE ONCE IV ; Start 10/11/16 at 11:15; Stop 10/11/16 at 11:16; Status DC Heparin Sodium (Heparin) 1,000 units ONCE ONCE IV ; Start 10/13/16 at 13:00; Stop 10/13/16 at 13:01; Status DC Heparin Sodium (Heparin) 1,000 units ONCE ONCE IV ; Start 10/16/16 at 10:45; Stop 10/16/16 at 10:46; Status DC Heparin Sodium (Heparin) 1,000 units ONCE ONCE IV ; Start 10/18/16 at 12:00; Stop 10/18/16 at 12:01; Status DC Heparin Sodium (Heparin) 1,000 units ONCE ONCE IV ; Start 10/20/16 at 10:15; Stop 10/20/16 at 10:16; Status DC Hydroxyzine HCl (Vistaril) 25 mg TID PRN PO ANXIETY; Start 10/10/16 at 16:00; Stop 11/09/16 at 15:59 Iron (Venofer) 100 mg HD IV ; Start 10/12/16 at 07:15; Stop 11/11/16 at 07:14 Latanoprost (Xalatan 0.005% Op Soln) 1 drop QHS OU Last administered on 20:36; Start 10/10/16 at 21:00; Stop 11/09/16 at 20:59 Levetiracetam (Keppra) 250 mg ONCE ONCE PO Last administered on 10/19/16 09: 34; Start 10/19/16 at 09:30; Stop 10/19/16 at 09:31; Status DC Levetiracetam (Keppra) 500 mg BID PO Last administered on 10/19/16 09:01; Start 10/10/16 at 21:00; Stop 10/19/16 at 09:29; Status DC Levetiracetam (Keppra) 750 mg BID PO Last administered on 10/20/16 08:28; Start 10/19/16 at 21:00; Stop 11/18/16 at 20:59 Levothyroxine Sodium (Synthroid) 0.2 mg DAILY@06 PO Last administered on 06:05; Start 10/11/16 at 06:00; Stop 11/10/16 at 05:59 Magnesium Hydroxide (Milk Of Magnesia) 30 ml DAILYPRN PRN PO CONSTIPATION Last administered on 10/19/16 13:00; Start 10/10/16 at 15:45; Stop 11/09/16 at 15:44 Magnesium Citrate (Citrate Of Magnesia) 300 ml ONCE ONCE PO Last administered on 10/12/16 10:30; Start 10/12/16 at 10:00; Stop 10/12/16 at 10:05; Status DC Polyethylene Glycol (Miralax) 1 pkt DAILY PO Last administered on 10/19/16 08: 57; Start 10/18/16 at 09:00; Stop 10/19/16 at 15:35; Status DC Polyethylene Glycol (Miralax) 1 pkt DAILY PRN PO CONSTIPATION Last administered on 10/17/16 10:43; Start 10/10/16 at 15:45; Stop 10/17/16 at 11:39 ; Status DC Polyethylene Glycol (Miralax) 1 pkt DAILYPRN PRN PO CONSTIPATION; Start at 09:00; Stop 11/19/16 at 08:59 Psyllium Hydrophilic Mucilloid (Metamucil) 1 pkt DAILY PO Last administered on 10/19/16 18:00; Start 10/19/16 at 09:00; Stop 11/18/16 at 08:59 Senna (Senokot) 1 tab BID PO Last administered on 10/20/16 08:28; Start at 21:00; Stop 11/15/16 at 20:59 Senna (Senokot) 1 tab ONCE ONCE PO Last administered on 10/16/16 11:18; Start 10/16/16 at 11:00; Stop 10/16/16 at 11:01; Status DC Senna (Senokot) 1 tab QHS PO Last administered on 10/15/16 20:53; Start at 21:00; Stop 10/16/16 at 10:47; Status DC Sevelamer Carbonate (Renvela) 1,600 mg WM PO Last administered on 10/20/16 08: 28; Start 10/10/16 at 18:00; Stop 11/09/16 at 17:59 Simvastatin (Zocor) 40 mg QPM@18 PO Last administered on 10/19/16 18:01; Start 10/10/16 at 18:00; Stop 11/09/16 at 17:59 Timolol Maleate (Timoptic-Xe 0.5% Ophth Gfs) 1 drop DAILY OU Last administered on 10/20/16 08:29; Start 10/11/16 at 09:00; Stop 11/10/16 at 08:59 Vitamin B Complex/ Vit C/Folic Acid (Nephro-Annie Rx) 1 tab QPM PO Last administered on 10/19/16 20:34; Start 10/11/16 at 21:00; Stop 11/10/16 at 20:59 Warfarin Sodium (Coumadin) 2.5 mg 1T@17 ONCE PO Last administered on 17:30; Start 10/17/16 at 17:00; Stop 10/17/16 at 17:01; Status DC Warfarin Sodium (Coumadin) 2.5 mg 1T@17 ONCE PO Last administered on 17:20; Start 10/18/16 at 17:00; Stop 10/18/16 at 17:01; Status DC Warfarin Sodium (Coumadin) 2.5 mg 1T@17 ONCE PO Last administered on 18:01; Start 10/19/16 at 17:00; Stop 10/19/16 at 17:01; Status DC Warfarin Sodium (Coumadin) 3 mg 1T@17 ONCE PO ; Start 10/20/16 at 17:00; Stop 10/20/16 at 17:01 Warfarin Sodium (Coumadin) 5 mg DAILY@17 PO Last administered on 10/12/16 17: 29; Start 10/10/16 at 17:00; Stop 10/13/16 at 10:20; Status DC JENNIFER HAMPTON MD Oct 20, 2016 12:21
--- NOTE | 2016-10-20 13:21 | IPN ---
DATE OF SERVICE: 10/20/2016 SUBJECTIVE: Patient was seen and examined today at noontime, during hemodialysis procedure. Patient was tolerating the hemodialysis procedure well. There were no active complaints. Last 24 hour events were noted. Patient got a CAT scan of the head yesterday, which did not show any acute pathology. His dose of Keppra was increased yesterday. Keppra levels are still pending. There are no more seizure activities and video electroencephalogram (EEG) is not done at this time. REVIEW OF SYSTEMS: Patient denies any fevers, chills, rigors, headache, nausea, vomiting, chest pain, abdominal pain, constipation, diarrhea. All other review of systems is negative. OBJECTIVE: VITAL SIGNS: Temperature 96.7 degrees Fahrenheit, blood pressure 117/56, pulse 63, respiratory rate 18, saturating 98% on room air. INTAKE AND OUTPUT: There is urine output of around 50 mL recorded in the last 24 hours. Weight in the bed scale was 74.8 kg yesterday. PHYSICAL EXAMINATION: GENERAL: Patient is awake, alert, oriented times three, laying in bed getting hemodialysis done with no active distress. HEAD AND NECK EXAMINATION: Extraocular muscles intact. Patient is normocephalic, atraumatic. Mucous membranes are moist. Neck is supple. No jugular venous distention (JVD). CARDIOVASCULAR: S1, S2. Regular rate. No murmurs, rubs or gallops. RESPIRATORY: Clear to auscultation bilaterally. Bilateral equal air entry. No rales or rhonchi. ABDOMEN: Soft, positive bowel sounds. Nontender. No ascites. No organomegaly. EXTREMITIES: No clubbing or cyanosis. Pulses are 2+. CENTRAL NERVOUS SYSTEM: No focal neurological deficits. Power is 5/5 in all extremities. SKIN: No rashes or ulcers. PSYCHIATRIC: Normal mood and affect. LABORATORY REVIEW: Complete blood count (CBC) showed WBC 7.6, hemoglobin 9.7, platelets 300. Basic metabolic panel (BMP) showed sodium 143, potassium 4.9, chloride 103, bicarbonate 32, BUN 55, creatinine 7.6, magnesium 3. Keppra level came back at 42.1. IMAGING: CAT scan of the head done yesterday showed small vessel ischemic disease, mild volume loss. CURRENT MEDICATIONS: Patient's medications are all reviewed by me. His Keppra dose has been increased to 750 mg by mouth twice a day. There is no other change in the medications at this time apart from changing the Coumadin dose to 3 mg by mouth tonight. ASSESSMENT: An 81-year-old male with past medical history of end-stage renal disease on hemodialysis every Sunday, Sunday and Sunday, admitted this time because of right hip fracture status post open reduction internal fixation of the right hip. PLAN: 1. End-stage renal disease. Patient is getting hemodialysis according to regular schedule. Ultrafiltration goal will be 2 liters. He is being dialyzed against a 2 K (potassium) bath. 2. Seizure disorder with possible breakthrough seizure. Appreciate neurology input. CAT scan was normal, with no acute pathology. Redo electroencephalogram (EEG) is pending. As reported by patient's , patient already had a recent video EEG done during another hospital admission. That record will be obtained and patient will get probably two hours of EEG. Keppra dose has already been increased to 750 mg by mouth twice a day. Keppra level sent two days ago, came back to be normal. Levels to be discussed with neurology. 3. Anemia secondary to end-stage renal disease. Patient's hemoglobin is 9.7 at this time. Continue current dose of Venofer 100 mg IV with hemodialysis and Aranesp 100 mg IV with hemodialysis once a week. 4. Hypertension. Blood pressure is acceptable at this time. Continue current dose of Coreg 3.125 mg every 6 hours, doxazosin 8 mg by mouth nightly. 5. Chronic kidney disease and mineral bone disease. Continue current dose of Renvela with meals for hyperphosphatemia. 6. Right hip fracture status post open reduction internal fixation (ORIF) of right hip. Continue physical therapy. Plan of care was discussed with the primary team.
[2016-10-20 15:50] VITALS: BP 103/51
[2016-10-20] MEDS ORDERED: WARFARIN SOD 3 MG TAB PO ONE (17:00)
[2016-10-20 17:46] VITALS: BP 118/57
[2016-10-20] MEDS: SIMVASTATIN 40 MG TAB PO SCH (17:47)
[2016-10-20 20:00] VITALS: BP 107/54
[2016-10-20] MEDS: NEPHRO-VIT TAB (NEPHROCAPS) PO SCH (21:08)
[2016-10-20] MEDS: DOXAZOSIN MESYLATE 4 MG TAB PO SCH (21:08)
[2016-10-20] MEDS: SINEMET 10-100 MG TAB PO SCH (21:08)
[2016-10-20] MEDS: LATANOPROST 0.005% OPHTH SOLN 2.5 ML OU SCH (21:09)
[2016-10-21] MEDS: LEVOTHYROXINE 0.1 MG TAB (100 MCG) PO SCH (05:34)
[2016-10-21] MEDS: CARVedilol 3.125 MG TAB PO SCH ×3 (05:35→17:21)
[2016-10-21 06:00] VITALS: BP 131/59
[2016-10-21] MEDS: levETIRAcetam 250MG TABLET (KEPPRA) PO SCH ×2 (09:29→21:49)
[2016-10-21] MEDS: SENNA 8.6 MG TAB (SENOKOT) PO SCH ×2 (09:29→21:49)
[2016-10-21] MEDS: DOCUSATE SODIUM 100 MG CAP PO SCH ×2 (09:29→21:49)
[2016-10-21] MEDS: FUROSEMIDE 80 MG TAB PO SCH (09:29)
[2016-10-21] MEDS: METAMUCIL (PSYLLIUM) PACKET PO SCH (09:29)
[2016-10-21] MEDS: (RENVELA) SEVELAMER **CARBONate** 800 MG TAB PO SCH ×3 (09:29→17:19)
[2016-10-21] MEDS: TIMOLOL XE GFS 0.5% OPHTH 5 ML OU SCH (09:29)
--- NOTE | 2016-10-21 13:33 | IPNPDOC ---
Date/Time Seen The patient was seen on 10/21/16 at 13:23. Progress Note DATE OF ENCOUNTER: 10/21/2016 SUBJECTIVE: Mr. Savage was seen this morning at bedside in the acute rehab floor. He had hemodialysis yesterday. He reports that he became dizzy and blood pressure dropped during hemodialysis. Only 1000 mL of fluid was removed. Otherwise that patient is doing well. He continues to work with physical therapy. No acute overnight issues. No recurrence of seizure-like activity. Review of systems is negative for chest pain, palpitations, shortness of breath , nausea, vomiting, abdominal pain, diarrhea, fevers, chills, headache. No dizziness this morning. He denies any pain. His appetite is good. OBJECTIVE: Vital Signs Date Time Temp Pulse Resp B/P Pulse Ox O2 Delivery O2 Flow Rate FiO2 10/21/16 12:33 80 131/60 10/21/16 09:00 Room Air 10/21/16 06:00 97.6 18 96 I&O- Last 24 Hours up to 6 AM 10/21/16 06:00 Intake Total 1020 ml Output Total 1100 ml Balance -80 ml General: Patient is awake and alert. In no acute distress. HEENT: Normocephalic, atraumatic. Extraocular muscles are intact. Moist mucosa. Neck: Supple. No thyromegaly. No jugular venous distension appreciated. Heart: Normal S1, S2. Regular rate and rhythm. Positive for systolic ejection murmur. Lungs: Clear to auscultation bilaterally. No rales, rhonchi or wheezing. Abdomen: Soft, nontender, nondistended. Positive bowel sounds. Extremities: No cyanosis or lower extremity edema. Positive pedal pulses bilaterally. SKIN: Warm and dry. Good skin turgor. No rashes or skin lesions appreciated. Neurologic: No focal deficits. LABORATORY DATA: 10/20/16 07:08 10/21/16 06:44: Prothrombin Time International Ratio 2.00, Prothrombin Time 22.8H ASSESSMENT AND PLAN: 1. End-stage renal disease. Patient had hemodialysis yesterday where 1000ml was removed. He is feeling well this morning. Continue with normal schedule of Sunday, Sunday and Sunday. Next dialysis session will be Monday 10/23. 2. Seizure disorder. Patient had a breakthrough seizure on the morning of 1/18. CT of the head did not show any acute findings. Patient had an EEG previously which was reviewed by neurology. They would still like to go forward with a repeat EEG, which will likely take place on Sunday. His Keppra dose has already been increased to 750 mg twice daily. Keppra level has come back to within normal. No recurrence of seizure-like activity since.. 3. 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 He receives Aranesp and Venofer during hemodialysis. Hemoglobin will be checked again tomorrow. 4. Hypertension. Blood pressure is stable. He is on Coreg, Lasix and Cardura. 5. 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 Continue with Renvela 1600 mg by mouth with meals and Nephro-Annie. 6. Right hip fracture from fall. The patient is status post open reduction, internal fixation (ORIF) on 10/07. Pain is controlled and he is undergoing physical therapy. GME ATTESTATION GME ATTESTATION My preceptor for this patient encounter was physically present in the building during the encounter and was fully available. As needed, all aspects of the patient interview, examination, medical decision making process, and medical care plan development were reviewed and approved by the preceptor. Preceptor is aware and concurs with the plan as stated in the body of this note and will attest to such by his/her cosignature. ATTENDING NOTE Nephrology: Pt examined at bedside in the morning. EEG pending. No more seizure episodes. He tolerated HD well. I agree with resident's assessment. LAKESHIA AGRAWAL DO Oct 21, 2016 13:32 JENI LUNA MD Oct 22, 2016 12:13
[2016-10-21 14:00] VITALS: BP 118/56
[2016-10-21] MEDS: SIMVASTATIN 40 MG TAB PO SCH (17:19)
[2016-10-21] MEDS: WARFARIN SOD 3 MG TAB PO SCH (17:19)
[2016-10-21 20:00] VITALS: BP 101/58
[2016-10-21] MEDS: NEPHRO-VIT TAB (NEPHROCAPS) PO SCH (21:49)
[2016-10-21] MEDS: SINEMET 10-100 MG TAB PO SCH (21:49)
[2016-10-21] MEDS: DOXAZOSIN MESYLATE 4 MG TAB PO SCH (21:50)
[2016-10-21] MEDS: LATANOPROST 0.005% OPHTH SOLN 2.5 ML OU SCH (21:52)
[2016-10-21] MEDS: ACETAMINOPHEN TAB 650MG DOSE (2X325MG) PO PRN (21:59)
[2016-10-22] MEDS: CARVedilol 3.125 MG TAB PO SCH ×4 (00:34→17:16)
[2016-10-22] MEDS: LEVOTHYROXINE 0.1 MG TAB (100 MCG) PO SCH (05:56)
[2016-10-22 06:00] VITALS: BP 122/59
[2016-10-22 07:15] LABS: INR 2.22
[2016-10-22] MEDS: levETIRAcetam 250MG TABLET (KEPPRA) PO SCH ×2 (08:45→21:24)
[2016-10-22] MEDS: METAMUCIL (PSYLLIUM) PACKET PO SCH (08:45)
[2016-10-22] MEDS: DOCUSATE SODIUM 100 MG CAP PO SCH ×2 (08:45→21:24)
[2016-10-22] MEDS: TIMOLOL XE GFS 0.5% OPHTH 5 ML OU SCH (08:46)
[2016-10-22] MEDS: SENNA 8.6 MG TAB (SENOKOT) PO SCH ×2 (08:46→21:24)
[2016-10-22] MEDS: FUROSEMIDE 80 MG TAB PO SCH (08:46)
[2016-10-22] MEDS: (RENVELA) SEVELAMER **CARBONate** 800 MG TAB PO SCH ×3 (08:46→17:15)
[2016-10-22 14:00] VITALS: BP 108/54
--- NOTE | 2016-10-22 14:45 | IPN ---
DATE: 10/22/2016 SUBJECTIVE: Patient was seen and examined at the bedside today in the morning. He was doing his activities of daily life along with physical therapist. He denies any active complaints at this time. REVIEW OF SYSTEMS: Patient denies any fevers, chills, rigors, headache, nausea, vomiting, chest pain, shortness of breath, pain in abdomen, constipation, diarrhea. The rest of review of systems is negative. OBJECTIVE: VITAL SIGNS: Temperature 95.2 degrees Fahrenheit, blood pressure 122/59, pulse 53, respiratory rate 18, saturating 100% on room air. INTAKE AND OUTPUT: There is no urine output recorded. Weight in the bed scale recorded is 74.6 kg. PHYSICAL EXAMINATION: GENERAL: Patient is awake, alert, oriented times three, sitting in bed in no apparent distress. HEAD AND NECK EXAMINATION: Atraumatic, normocephalic. Extraocular muscles intact. Mucous membranes are moist. Neck is supple. No jugular venous distention (JVD). CARDIOVASCULAR: S1, S2. Regular rate. No murmurs, rubs or gallops. RESPIRATORY: Clear to auscultation bilaterally. Bilateral equal air entry. No rales or rhonchi. ABDOMEN: Soft, positive bowel sounds. Nontender. No ascites. No organomegaly. EXTREMITIES: No clubbing or cyanosis. Pulses are 2+. CENTRAL NERVOUS SYSTEM: No focal neurological deficits. Power is 5/5 in all extremities. LABORATORY REVIEW: Complete blood count (CBC) showed WBC 7.6, hemoglobin 9.7, platelets 300. Basic metabolic panel (BMP) is from 10/20 , there is no BMP availabile. CURRENT MEDICATIONS: Patient's medications were all reviewed by me. There is no change in the medications at this time. ASSESSMENT: An 81-year-old male with past medical history of end-stage renal disease on hemodialysis admitted this time because of right hip fracture status post open reduction internal fixation of the right hip on 10/07/2016. PLAN: 1. End-stage renal disease on hemodialysis. Patient's regular dialysis are Sunday, Sunday, Sunday. Next hemodialysis would be tomorrow on 10/23/2016. 2. Seizure disorder. Patient's Keppra has been increased to 750 mg by mouth twice a day. Rest of the management is as per neurology. 3. Anemia and end-stage renal disease. Hemoglobin is still slightly below target. Current the current dose of Aranesp and Venofer. Rest of the anemia management would be as per outpatient hemoglobin protocol. 4. Hypertension. Blood pressure is acceptable at this time. Continue current dose of Coreg and Cardura. DISCHARGE PLANNING: Patient will be dialyzed tomorrow as inpatient and the tentative discharge planning is probably on Sunday10/24/2016.
[2016-10-22] MEDS: SIMVASTATIN 40 MG TAB PO SCH (17:15)
[2016-10-22] MEDS: WARFARIN SOD 3 MG TAB PO SCH (17:16)
[2016-10-22 20:00] VITALS: BP 128/60
[2016-10-22] MEDS: DOXAZOSIN MESYLATE 4 MG TAB PO SCH (21:24)
[2016-10-22] MEDS: NEPHRO-VIT TAB (NEPHROCAPS) PO SCH (21:24)
[2016-10-22] MEDS: SINEMET 10-100 MG TAB PO SCH (21:24)
[2016-10-22] MEDS: ACETAMINOPHEN TAB 650MG DOSE (2X325MG) PO PRN (21:26)
[2016-10-22] MEDS: LATANOPROST 0.005% OPHTH SOLN 2.5 ML OU SCH (21:26)
[2016-10-23] MEDS: CARVedilol 3.125 MG TAB PO SCH ×5 (00:19→22:18)
[2016-10-23 06:00] VITALS: BP 107/55
[2016-10-23] MEDS: LEVOTHYROXINE 0.1 MG TAB (100 MCG) PO SCH (06:00)
[2016-10-23 06:45] LABS: INR 2.81
[2016-10-23] MEDS: (RENVELA) SEVELAMER **CARBONate** 800 MG TAB PO SCH ×3 (09:01→17:55)
[2016-10-23] MEDS: DOCUSATE SODIUM 100 MG CAP PO SCH ×2 (09:02→22:18)
[2016-10-23] MEDS: levETIRAcetam 250MG TABLET (KEPPRA) PO SCH ×2 (09:02→22:19)
[2016-10-23] MEDS: FUROSEMIDE 80 MG TAB PO SCH (09:02)
[2016-10-23] MEDS: SENNA 8.6 MG TAB (SENOKOT) PO SCH ×2 (09:02→22:19)
[2016-10-23] MEDS: METAMUCIL (PSYLLIUM) PACKET PO SCH (09:03)
[2016-10-23] MEDS: TIMOLOL XE GFS 0.5% OPHTH 5 ML OU SCH (09:04)
[2016-10-23 11:10] LABS: MEAN CORPUSCULAR HEMOGLOBIN 34.8 pg (27.0-33.0); MEAN CORPUSCULAR HGB CONC 32.7 g/dl (32.0-36.5); MEAN CORPUSCULAR VOLUME 106.6 fl (80.0-96.0); RED CELL DISTRIBUTION WIDTH 15.8 % (11.5-14.5); WHITE BLOOD COUNT 5.6 K/mm3 (4.0-10.0)
--- NOTE | 2016-10-23 11:11 | IPNPDOC ---
Client Experience Specialist Progress Note PROGRESS NOTE DATE OF ADMISSION: 10/10/2016 DATE OF SERVICE: 10/23/2016 IDENTIFICATION STATEMENT: Patient is an 81-year-old gentleman with a history of multiple medical comorbidities including atrial fibrillation, end-stage renal disease on hemodialysis 3 times a week and subarachnoid hemorrhage in August 2016 with subsequent episodes of seizures who sustained a mechanical fall in his home on 10/06/2016. He was found to have a right displaced intertrochanteric proximal femur fracture. After medical clearance, he underwent an ORIF with short gamma nail on 10/07/[address] Reji Capps. PAST MEDICAL HISTORY: Hypertension Atrial fibrillation (usually on Coumadin, but had not been restarted since his subarachnoid hemorrhage in August 2016) End-stage renal disease on hemodialysis 3 times a week Subarachnoid hemorrhage in August 2016 secondary to a fall. Two seizures in August 2016 that he reports were during dialysis. Gout left great toe (last episode ~1 yr ago) PAST SURGICAL HISTORY: Bilateral knee replacements Tonsillectomy ALLERGIES: Penicillin MEDICATIONS: Lasix 80 mg daily Sinemet 10/100 1 tab by mouth daily at bedtime vitamin B complex/C/folic acid one tab by mouth daily Cardura 8 mg by mouth daily at bedtime Keppra 750mg by mouth twice a day Renvela 1600 mg by mouth with meals MiraLAX 1 packet by mouth daily Percocet 1 tab every 4 hours when necessary pain Timoptic 0.5% 1 drop both eyes daily Synthroid 0.2 mg daily Xalatan 0.005% one drop both eyes daily at bedtime Zocor 40 mg by mouth every afternoon Colace 100 mg by mouth twice a day Vistaril 25 mg by mouth 3 times a day when necessary anxiety Acetaminophen 650 mg by mouth every 4 hours as needed SUBJECTIVE: Patient w/o complaints. Feels well. Slept well. Pain minimal. No further episodes MINDY or arm shaking. Denies any CP, SOB, N/V, diaphoresis, lighheadedness. VITAL SIGNS: Temperature 95.0F, pulse 50, respiratory rate 18, blood pressure 107/55, 100% saturation on room air. PHYSICAL EXAMINATION: GENERAL: Well nourished, well developed, sitting up in chair, no acute distress. HEENT: Normocephalic, atraumatic. PERRL, EOMI, no facial droop CARDIOVASCULAR: S1, S2, irregular rate. No bilateral pedal edema or calf tenderness LUNGS: Clear to auscultation bilaterally no wheezing rhonchi or rales ABDOMEN: Soft, nontender, nondistended. Normoactive bowel sounds throughout. MUSCULOSKELETAL: Well-healed bilateral surgical scars on his knees. MMT: 5/5 strength bilateral upper limbs in all major muscle groups. 2/5 right hip flexors , 4/5 right knee extension flexion, 5/5 right dorsiflexion, plantar flexion and EHL. 5/5 left hip flexors, left knee extension, flexion, dorsiflexion, plantar flexion and EHL. NEUROLOGICAL: Alert and oriented x 3. Answers all questions appropriately. Able to follow commands without difficulty. SKIN: Right lateral hip and thigh surgical site C/D/I. LABORATORY DATA: 10/23/16: reviewed, see below 10/10/2016: Hemoglobin 8.8, hematocrit 25.6, WBC 5.0, sodium 142, potassium 4.4 , chloride 100, carbon dioxide 32, BUN 36, creatinine 5.60, GFR 10.4, glucose 100, PT 15.2, INR 1.19. IMAGING: X-ray of the hip 10/07/2015: Right displaced intertrochanteric proximal femur fracture. FUNCTIONAL STATUS, Premorbid: Independent with ADLs and ambulation ASSESSMENT AND PLAN: 1. Displaced intertrochanteric proximal femur fracture status post ORIF now with gait abnormality and dysfunctional ADLs: PWB right lower limb. Patient continues to make progress. Continue daily physical and occupational therapy. Activity modification to allow for hemodialysis 3 times per week. Rehabilitation nursing for bladder, bowel, medication management and wound care. 2. Episode weakness/arm shaking: No further episodes. EEG scheduled for today. Continue Keppra. 3. Anemia (acute blood loss confounded by chronic kidney disease): Status post blood transfusion on 10/09/2016. S/p Darbepoiting and Venofer. Todays Hgb pending. 4. End-stage renal disease on hemodialysis: As above, activity modification to allow for hemodialysis 3 times per week, MWF. Treatment recommendations will be per the nephrology service. 5. Atrial fibrillation: Rate controlled. INR has been labile. Restarted Coumadin 10/17/16 at lower dose. Will adjust again today. Daily PT/INR until on stable dose. 6. Constipation: Resolved. [Hx: S/p increase senna 10/17/16 and changed Miralax to daily]. Continue Colace bid. Continue milk of magnesia on an as-needed basis. 6. Pain: Adequately controlled with tylenol. Continue intermittent ice to the right hip. 7. Diet/malnutrition: Maintain patient on a regular diet. Prealbumin low. Continue Nepro supplements. / Vital Signs Vital Sign - Last 24 Hours 10/22/16 10/22/16 10/22/16 10/22/16 11:24 14:00 17:16 20:00 Temp 96.9 Pulse 64 67 53 Resp 18 B/P 104/56 108/54 119/60 Pulse Ox 100 O2 Delivery Room Air Room Air 10/22/16 10/22/16 10/23/16 10/23/16 20:00 21:24 00:19 06:00 Temp 97.0 Pulse 61 81 50 Resp 18 B/P 128/60 123/58 117/60 107/55 Pulse Ox 99 O2 Delivery Room Air 10/23/16 06:00 Temp 95.0 Pulse 50 Resp 18 B/P 107/55 Pulse Ox 100 O2 Delivery Room Air Laboratory Data CBC/BMP Laboratory Tests 10/23/16 06:20 Red Blood Count 2.89 L, Mean Corpuscular Volume 106.6 H, Mean Corpuscular Hemoglobin 34.8 H, Mean Corpuscular Hemoglobin Concent 32.7, Red Cell Distribution Width 15.8 H Labs 24H Laboratory Tests 2 10/23/16 06:20: Prothromb Time International Ratio 2.81, Prothrombin Time 29.6H Allergies Allergies: Coded Allergies: Penicillins (Unverified Allergy, Intermediate, HIVES, 10/06/16) Current Medications Current Medications Current Medications Acetaminophen (Tylenol) 650 mg Q4HP PRN PO MILD PAIN (PS 1-4) Last administered on 10/22/16 21:26; Start 10/10/16 at 15:45; Stop 11/09/16 at 15:44 Acetaminophen/ Hydrocodone Bitart ([place], Anexsia 5/325) 1 tab Q4HP PRN PO MODERATE/SEVERE PAIN (PS 5-10); Start 10/10/16 at 15:45; Stop 10/24/16 at 15:44 Allopurinol (Zyloprim) 300 mg DAILY PO Last administered on 10/11/16 08:33; Start 10/11/16 at 09:00; Stop 10/12/16 at 07:11; Status DC Carbidopa/Levodopa (Sinemet 10) 1 tab QHS PO Last administered on 21:24; Start 10/10/16 at 21:00; Stop 11/09/16 at 20:59 Carvedilol (COReg) 3.125 mg Q6H PO Last administered on 10/23/16 00:19; Start 10/10/16 at 18:00; Stop 11/09/16 at 17:59 Darbepoetin Jin (Aranesp (Dialysis Use)) 100 mcg HD IV ; Start 10/11/16 at 10: 45; Stop 11/10/16 at 10:44 Docusate Sodium (Colace) 100 mg BID PO Last administered on 10/23/16 09:02; Start 10/10/16 at 21:00; Stop 11/09/16 at 20:59 Doxazosin Mesylate (Cardura) 8 mg QHS PO Last administered on 10/22/16 21:24; Start 10/10/16 at 21:00; Stop 11/09/16 at 20:59 Furosemide (Lasix) 80 mg DAILY PO Last administered on 10/23/16 09:02; Start 10/11/16 at 09:00; Stop 11/10/16 at 08:59 Heparin Sodium (Heparin) 1,000 units ONCE ONCE IV ; Start 10/11/16 at 11:15; Stop 10/11/16 at 11:16; Status DC Heparin Sodium (Heparin) 1,000 units ONCE ONCE IV ; Start 10/13/16 at 13:00; Stop 10/13/16 at 13:01; Status DC Heparin Sodium (Heparin) 1,000 units ONCE ONCE IV ; Start 10/16/16 at 10:45; Stop 10/16/16 at 10:46; Status DC Heparin Sodium (Heparin) 1,000 units ONCE ONCE IV ; Start 10/18/16 at 12:00; Stop 10/18/16 at 12:01; Status DC Heparin Sodium (Heparin) 1,000 units ONCE ONCE IV ; Start 10/20/16 at 10:15; Stop 10/20/16 at 10:16; Status DC Hydroxyzine HCl (Vistaril) 25 mg TID PRN PO ANXIETY; Start 10/10/16 at 16:00; Stop 11/09/16 at 15:59 Iron (Venofer) 100 mg HD IV ; Start 10/12/16 at 07:15; Stop 11/11/16 at 07:14 Latanoprost (Xalatan 0.005% Op Soln) 1 drop QHS OU Last administered on 21:26; Start 10/10/16 at 21:00; Stop 11/09/16 at 20:59 Levetiracetam (Keppra) 250 mg ONCE ONCE PO Last administered on 10/19/16 09: 34; Start 10/19/16 at 09:30; Stop 10/19/16 at 09:31; Status DC Levetiracetam (Keppra) 500 mg BID PO Last administered on 10/19/16 09:01; Start 10/10/16 at 21:00; Stop 10/19/16 at 09:29; Status DC Levetiracetam (Keppra) 750 mg BID PO Last administered on 10/23/16 09:02; Start 10/19/16 at 21:00; Stop 11/18/16 at 20:59 Levothyroxine Sodium (Synthroid) 0.2 mg DAILY@06 PO Last administered on 06:00; Start 10/11/16 at 06:00; Stop 11/10/16 at 05:59 Magnesium Hydroxide (Milk Of Magnesia) 30 ml DAILYPRN PRN PO CONSTIPATION Last administered on 10/19/16 13:00; Start 10/10/16 at 15:45; Stop 11/09/16 at 15:44 Magnesium Citrate (Citrate Of Magnesia) 300 ml ONCE ONCE PO Last administered on 10/12/16 10:30; Start 10/12/16 at 10:00; Stop 10/12/16 at 10:05; Status DC Polyethylene Glycol (Miralax) 1 pkt DAILY PO Last administered on 10/19/16 08: 57; Start 10/18/16 at 09:00; Stop 10/19/16 at 15:35; Status DC Polyethylene Glycol (Miralax) 1 pkt DAILY PRN PO CONSTIPATION Last administered on 10/17/16 10:43; Start 10/10/16 at 15:45; Stop 10/17/16 at 11:39 ; Status DC Polyethylene Glycol (Miralax) 1 pkt DAILYPRN PRN PO CONSTIPATION; Start at 09:00; Stop 11/19/16 at 08:59 Psyllium Hydrophilic Mucilloid (Metamucil) 1 pkt DAILY PO Last administered on 10/23/16 09:03; Start 10/19/16 at 09:00; Stop 11/18/16 at 08:59 Senna (Senokot) 1 tab BID PO Last administered on 10/23/16 09:02; Start at 21:00; Stop 11/15/16 at 20:59 Senna (Senokot) 1 tab ONCE ONCE PO Last administered on 10/16/16 11:18; Start 10/16/16 at 11:00; Stop 10/16/16 at 11:01; Status DC Senna (Senokot) 1 tab QHS PO Last administered on 10/15/16 20:53; Start at 21:00; Stop 10/16/16 at 10:47; Status DC Sevelamer Carbonate (Renvela) 1,600 mg WM PO Last administered on 10/23/16 09: 01; Start 10/10/16 at 18:00; Stop 11/09/16 at 17:59 Simvastatin (Zocor) 40 mg QPM@18 PO Last administered on 10/22/16 17:15; Start 10/10/16 at 18:00; Stop 11/09/16 at 17:59 Timolol Maleate (Timoptic-Xe 0.5% Oph Gfs) 1 drop DAILY OU Last administered on 10/23/16 09:04; Start 10/11/16 at 09:00; Stop 11/10/16 at 08:59 Vitamin B Complex/ Vit C/Folic Acid (Nephro-Annie Rx) 1 tab QPM PO Last administered on 10/22/16 21:24; Start 10/11/16 at 21:00; Stop 11/10/16 at 20:59 Warfarin Sodium (Coumadin) 2.5 mg 1T@17 ONCE PO Last administered on 17:30; Start 10/17/16 at 17:00; Stop 10/17/16 at 17:01; Status DC Warfarin Sodium (Coumadin) 2.5 mg 1T@17 ONCE PO Last administered on 17:20; Start 10/18/16 at 17:00; Stop 10/18/16 at 17:01; Status DC Warfarin Sodium (Coumadin) 2.5 mg 1T@17 ONCE PO Last administered on 18:01; Start 10/19/16 at 17:00; Stop 10/19/16 at 17:01; Status DC Warfarin Sodium (Coumadin) 2.5 mg 1T@17 ONCE PO ; Start 10/23/16 at 17:00; Stop 10/23/16 at 17:01 Warfarin Sodium (Coumadin) 3 mg 1T@17 ONCE PO Last administered on 10/20/16 17:47; Start 10/20/16 at 17:00; Stop 10/20/16 at 17:01; Status DC Warfarin Sodium (Coumadin) 3 mg DAILY@17 PO Last administered on 10/22/16 17: 16; Start 10/21/16 at 17:00; Stop 10/23/16 at 11:08; Status DC Warfarin Sodium (Coumadin) 5 mg DAILY@17 PO Last administered on 10/12/16 17: 29; Start 10/10/16 at 17:00; Stop 10/13/16 at 10:20; Status DC JENNIFER HAMPTON MD Oct 23, 2016 11:11 JENNIFER HAMPTON MD Oct 23, 2016 11:11
[2016-10-23] MEDS ORDERED: HEPARIN 1,000 UNITS/ML 10ML VIAL (FOR RADIOLOGY& DIALYSIS ONLY) XX ONE (11:15)
[2016-10-23 12:28] LABS: ALBUMIN 3.1 GM/DL (3.2-5.2); CALCIUM LEVEL 8.8 MG/DL (8.8-10.2); CREATININE FOR GFR 9.11 MG/DL (0.70-1.30); GLOMERULAR FILTRATION RATE 5.9 (>35); PHOSPHORUS LEVEL 5.4 MG/DL (2.5-4.9); POTASSIUM SERUM 4.5 MEQ/L (3.5-5.1)
--- NOTE | 2016-10-23 13:16 | IPNPDOC ---
Date/Time Seen The patient was seen on 10/23/16 at 13:10. Progress Note DATE OF ENCOUNTER: 10/23/2016 SUBJECTIVE: Mr. Savage was seen this morning at bedside in the acute rehab floor. He will have hemodialysis later on today. He denies any acute complaints and no overnight issues. Review of systems is negative for chest pain, palpitations, shortness of breath , nausea, vomiting, abdominal pain, diarrhea, fevers, chills, headache, dizziness. No recurrence of seizure-like activity. He is eating well. Continues to work with physical therapy. OBJECTIVE: Vital Signs Date Time Temp Pulse Resp B/P Pulse Ox O2 Delivery O2 Flow Rate FiO2 10/23/16 12:14 78 110/78 10/23/16 06:00 95.0 18 100 Room Air I&O- Last 24 Hours up to 6 AM 10/23/16 06:00 Intake Total 1340 ml Balance 1340 ml General: Patient is awake and alert. In no acute distress. HEENT: Normocephalic, atraumatic. Extraocular muscles are intact. Moist mucosa. Neck: Supple. No thyromegaly. No jugular venous distension appreciated. Heart: Normal S1, S2. Regular rate and rhythm. Positive for systolic ejection murmur. Lungs: Clear to auscultation bilaterally. No rales, rhonchi or wheezing. Abdomen: Soft, nontender, nondistended. Positive bowel sounds. Extremities: No cyanosis or lower extremity edema. Positive pedal pulses bilaterally. SKIN: Warm and dry. Good skin turgor. No rashes. Neurologic: No focal deficits. LABORATORY DATA: 10/23/16 06:20 ASSESSMENT AND PLAN: 1. End-stage renal disease, on hemodialysis. He follows a Sunday, Sunday and Sunday schedule. He will be dialyzed later on today. 2. Seizure disorder. He is supposed to have an EEG done today. Continue with Keppra 750 mg twice daily. Neurology following. No recurrence of seizure-like activity. 3. 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 He receives Aranesp and Venofer as needed during hemodialysis. Hemoglobin is currently stable. 4. Hypertension. Blood pressure is stable. He is on Coreg, Lasix and Cardura. 5. 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 Continue with Renvela and Nephro- Annie. 6. Right hip fracture from fall. The patient is status post open reduction, internal fixation (ORIF) on 10/07. Pain is controlled and he is undergoing physical therapy. DISPOSITION: Tentative discharge is for tomorrow 10/24. He will continue with outpatient maintenance hemodialysis. GME ATTESTATION GME ATTESTATION My preceptor for this patient encounter was physically present in the building during the encounter and was fully available. As needed, all aspects of the patient interview, examination, medical decision making process, and medical care plan development were reviewed and approved by the preceptor. Preceptor is aware and concurs with the plan as stated in the body of this note and will attest to such by his/her cosignature. LAKESHIA AGRAWAL DO Oct 23, 2016 13:16
[2016-10-23 16:30] VITALS: BP 105/52
[2016-10-23] MEDS ORDERED: WARFARIN SOD 2.5 MG TAB PO ONE (17:00)
[2016-10-23] MEDS: SIMVASTATIN 40 MG TAB PO SCH (17:55)
[2016-10-23 20:30] VITALS: BP 110/55
[2016-10-23] MEDS: DOXAZOSIN MESYLATE 4 MG TAB PO SCH (22:18)
[2016-10-23] MEDS: NEPHRO-VIT TAB (NEPHROCAPS) PO SCH (22:19)
[2016-10-23] MEDS: SINEMET 10-100 MG TAB PO SCH (22:19)
[2016-10-23] MEDS: LATANOPROST 0.005% OPHTH SOLN 2.5 ML OU SCH (22:20)
[2016-10-24 06:00] VITALS: BP 134/58
[2016-10-24] MEDS: LEVOTHYROXINE 0.1 MG TAB (100 MCG) PO SCH (06:24)
[2016-10-24 06:25] VITALS: BP 134/58
[2016-10-24] MEDS: CARVedilol 3.125 MG TAB PO SCH ×2 (06:25→12:00)
[2016-10-24 07:12] LABS: INR 2.83
[2016-10-24] MEDS ORDERED: WARF-18 PO (07:32)
--- NOTE | 2016-10-24 08:33 | EEG ---
DATE OF EE10/23/2016 DIAGNOSIS: Seizures. EEG NUMBER: [id number]. CLINICAL HISTORY: The patient is an 81-year-old man who had two seizures after dialysis. The patient was noted to have rhythmic shaking of right upper extremity with staring. This EEG was done to rule out epileptic potential. He had an abnormal EEG at [facility] in [place], [place]. He is currently on Sinemet, doxazosin, Lasix, simvastatin, levothyroxine, Keppra, carvedilol, Coumadin, etc. TECHNICAL DESCRIPTION: This digital EEG was recorded by 21 scalp, ear and two EKG electrodes and was reviewed in bipolar and referential montages following reformatting in 10-20 international electrode placement system. INTERPRETATION: The patient was noted to be in awake and drowsy states during this EEG. Resting awake background can rhythm consisted of 9 Hz alpha activity measuring 15-40 microvolts in amplitude, which was symmetric and reactive to eye opening. Attenuation of posterior dominant rhythm was seen during transition into drowsiness. Stage 1 and 2 sleep were reviewed and were symmetric bilaterally. Hyperventilation could not be performed. Photic stimulation remained unremarkable. EKG revealed irregular heartbeat and atrial fibrillation. No focal, lateralizing or epileptiform abnormalities were seen. No clinical or electrographic seizures were recorded. CONCLUSION: This EEG in awake, drowsy states, stage 1 and 2 sleep is within normal limits. Compared to his previous EEG on August 09, 2016 at [facility], no focal slowing was noted in left frontal head region. No clear epileptiform abnormalities were seen.
[2016-10-24] MEDS: (RENVELA) SEVELAMER **CARBONate** 800 MG TAB PO SCH ×2 (08:46→12:30)
[2016-10-24] MEDS: SENNA 8.6 MG TAB (SENOKOT) PO SCH (08:46)
[2016-10-24] MEDS: levETIRAcetam 250MG TABLET (KEPPRA) PO SCH (08:46)
[2016-10-24] MEDS: FUROSEMIDE 80 MG TAB PO SCH (08:46)
[2016-10-24] MEDS: METAMUCIL (PSYLLIUM) PACKET PO SCH (08:46)
[2016-10-24] MEDS: DOCUSATE SODIUM 100 MG CAP PO SCH (08:46)
[2016-10-24] MEDS: TIMOLOL XE GFS 0.5% OPHTH 5 ML OU SCH (08:47)
--- NOTE | 2016-10-24 09:34 | IPNPDOC ---
Date/Time Seen The patient was seen on 10/24/16 at 09:26. Progress Note DATE OF ENCOUNTER: 10/24/2016 SUBJECTIVE: Mr. Savage was seen this morning at bedside in the acute rehab floor. He had dialysis yesterday which was well tolerated. He denies any acute complaints and no overnight issues. Review of systems is negative for chest pain, palpitations, shortness of breath , nausea, vomiting, abdominal pain, diarrhea, fevers, chills, headache, dizziness. No recurrence of seizure-like activity. He is eating well. OBJECTIVE: Vital Signs Date Time Temp Pulse Resp B/P Pulse Ox O2 Delivery O2 Flow Rate FiO2 10/24/16 08:00 Room Air 10/24/16 06:25 62 134/58 10/24/16 06:00 96.7 20 99 I&O- Last 24 Hours up to 6 AM 10/24/16 06:00 Intake Total 960 ml Output Total 1500 ml Balance -540 ml General: Patient is awake and alert. In no acute distress. HEENT: Normocephalic, atraumatic. Extraocular muscles are intact. Moist mucosa. Neck: Supple. No thyromegaly. No jugular venous distension appreciated. Heart: Normal S1, S2. Heart sounds are irregular. Positive for systolic ejection murmur. Lungs: Clear to auscultation bilaterally. No rales, rhonchi or wheezing. Abdomen: Soft, nontender, nondistended. Positive bowel sounds. Extremities: No cyanosis or lower extremity edema. Positive pedal pulses bilaterally. SKIN: Warm and dry. Good skin turgor. No rashes. Neurologic: No focal deficits. LABORATORY DATA: 10/23/16 06:20 10/24/16 06:43: Prothrombin Time International Ratio 2.83, Prothrombin Time 29.8H ASSESSMENT AND PLAN: 1. End-stage renal disease, on hemodialysis. He follows a Sunday, Sunday and Sunday schedule. He will be dialyzed again tomorrow 10/25. Volume status and electrolytes are stable. 2. Seizure disorder. Continue with Keppra 750 mg twice daily. He had EEG done yesterday and that has been reported as within normal. No recurrence of seizure- like activity. 3. 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 He receives Aranesp and Venofer as needed during hemodialysis. Hemoglobin is currently stable. 4. Hypertension. Blood pressure is stable. He is on Coreg, Lasix and Cardura. 5. 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 Continue with Renvela and Nephro- Annie. 6. Right hip fracture from fall. The patient is status post open reduction, internal fixation (ORIF) on 10/07. Today is his last day of inpatient rehab. DISPOSITION: Patient will be discharged today. He will continue with outpatient maintenance hemodialysis. GME ATTESTATION GME ATTESTATION My preceptor for this patient encounter was physically present in the building during the encounter and was fully available. As needed, all aspects of the patient interview, examination, medical decision making process, and medical care plan development were reviewed and approved by the preceptor. Preceptor is aware and concurs with the plan as stated in the body of this note and will attest to such by his/her cosignature. LAKESHIA AGRAWAL DO Oct 24, 2016 09:34
[2016-10-24] MEDS ORDERED: KEPP1TAB2 PO (09:55)
--- NOTE | 2016-10-24 12:30 | DS.PDOC ---
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 Displaced intertrochanteric proximal femur fracture status post ORIF now with resultant gait abnormality and dysfunctional ADLs 2. Anemia (acute blood loss confounded by chronic kidney disease 3. End-stage renal disease on hemodialysis 4. Atrial fibrillation 5. Constipation 6. Malnutrition IDENTIFICATION STATEMENT: Patient is an 81-year-old gentleman with a history of multiple medical comorbidities including atrial fibrillation, end-stage renal disease on hemodialysis 3 times a week and subarachnoid hemorrhage in August 2016 with subsequent episodes of seizures who sustained a mechanical fall in his home on 10/06/2016. He was found to have a right displaced intertrochanteric proximal femur fracture. After medical clearance, he underwent an ORIF with short gamma nail on 10/07/[address] Reji Capps. PAST MEDICAL HISTORY: Hypertension Atrial fibrillation (usually on Coumadin, but had not been restarted since his subarachnoid hemorrhage in August 2016) End-stage renal disease on hemodialysis 3 times a week Subarachnoid hemorrhage in August 2016 secondary to a fall. Two seizures in August 2016 that he reports were during dialysis. Gout left great toe (last episode ~1 yr ago) PAST SURGICAL HISTORY: Bilateral knee replacements Tonsillectomy HOSPITAL COURSE: The patient underwent daily physical and occupational therapy. He was maintained on PWB right LL. He tolerated her therapy sessions well and made slow but progressive gains. Surgical site was monitored periodically and noted to be healing well. Olu were removed prior to discharge. On 10/24/2016 the patient was deemed stable for discharge home with his . Other issues addressed while on the rehabilitation unit are outlined as follows: 1. Episode weakness/right arm shaking 10/18/16: Dr. Cox of neurology was consulted. CT head and EEG were done. Keppra was increased to 750mg. Patient did not have any further episodes. He was set-up with follow-up appointment with Dr. Cox after discharge. 2. Anemia (acute blood loss confounded by chronic kidney disease): Status post blood transfusion on 10/09/2016. S/p Darbepoiting and Venofer with dialysis. 3. End-stage renal disease on hemodialysis 3x/week: Therapy schedule was modified to allow for hemodialysis 3 times per week, MWF. 4. Atrial fibrillation: Remained rate controlled. He was restarted Coumadin 10/17 but at lower than usual dose. His INR was therapeutic at discharge. Arrangements were made for PT/INR to be done on the one same Sunday following his discharge with results faxed to his PCP Dr. Stanford who usually managed his coumadin. 5. Constipation: Resolved with aggressive bowel regimen. Maintained on Colace and Senna with milk of magnesia on an as-needed basis. 6. Pain: Adequately controlled with Tylenol and intermittent ice to the right hip. 7. Malnutrition: Prealbumin low for which provided with Nepro supplements. VITAL SIGNS: Temperature 96.7F, pulse 62, respiratory rate 20, blood pressure 134/58, 99% saturation on room air. PHYSICAL EXAMINATION: GENERAL: Well nourished, well developed, sitting up in chair, no acute distress. HEENT: Normocephalic, atraumatic. PERRL, EOMI CARDIOVASCULAR: S1, S2, irregular rate. No bilateral pedal edema or calf tenderness LUNGS: Clear to auscultation bilaterally no wheezing rhonchi or rales ABDOMEN: Soft, nontender, nondistended. Normoactive bowel sounds throughout. MUSCULOSKELETAL: Well-healed bilateral surgical scars on his knees. MMT: 5/5 strength bilateral upper limbs in all major muscle groups. 2/5 right hip flexors , 4/5 right knee extension flexion, 5/5 right dorsiflexion, plantar flexion and EHL. 5/5 left hip flexors, left knee extension, flexion, dorsiflexion, plantar flexion and EHL. NEUROLOGICAL: Alert and oriented x 3. Answers all questions appropriately. Able to follow commands without difficulty. SKIN: Right lateral hip and thigh surgical site C/D/I-healing well. LABORATORY DATA: 10/23/16: reviewed, see below IMAGING: X-ray of the hip 10/07/2015: Right displaced intertrochanteric proximal femur fracture. ALLERGIES: Penicillin MEDICATIONS: Lasix 80 mg daily Sinemet 10/100 1 tab by mouth daily at bedtime vitamin B complex/C/folic acid one tab by mouth daily Cardura 8 mg by mouth daily at bedtime Keppra 750mg by mouth twice a day Renvela 1600 mg by mouth with meals MiraLAX 1 packet by mouth daily Timoptic 0.5% 1 drop both eyes daily Synthroid 0.2 mg daily Xalatan 0.005% one drop both eyes daily at bedtime Zocor 40 mg by mouth every afternoon Colace 100 mg by mouth twice a day Acetaminophen 650 mg by mouth every 4 hours as needed DISCHARGE DISPOSITION: 1. The patient discharge home with family 2. The patient discharged in stable condition 3. Discharged with appointment for HD MWF & lab draw M&F. 4. Equipment: 2WW, commode and shower chair 5. Post discharge follow-up medical appointments: PCP, Ortho, HD & Neurology. / Vital Signs/I&O Vital Sign - Last 24 Hours 10/23/16 10/23/16 10/23/16 10/23/16 16:30 17:21 20:00 20:30 Temp 96.6 96.8 Pulse 59 59 67 Resp 18 20 B/P 105/52 105/52 110/55 Pulse Ox 98 97 O2 Delivery Room Air Room Air Room Air 10/23/16 10/23/16 10/24/16 10/24/16 22:18 22:18 06:00 06:25 Temp 96.7 Pulse 76 62 62 Resp 20 B/P 112/52 112/52 134/58 134/58 Pulse Ox 99 O2 Delivery Room Air 10/24/16 08:00 O2 Delivery Room Air I&O- Last 24 Hours up to 6 AM 10/24/16 06:00 Intake Total 960 ml Output Total 1500 ml Balance -540 ml Laboratory Data CBC/BMP Laboratory Tests 10/23/16 06:20 Anion Gap 11, Red Blood Count 2.89 L, Mean Corpuscular Volume 106.6 H, Mean Corpuscular Hemoglobin 34.8 H, Mean Corpuscular Hemoglobin Concent 32.7, Red Cell Distribution Width 15.8 H Labs 48H Laboratory Tests 10/23/16 06:20: Albumin 3.1L, Blood Urea Nitrogen 54H, Creatinine 9.11H, Sodium Level 142, Potassium Level 4.5, Chloride Level 102, Carbon Dioxide Level 29, Anion Gap 11, Calcium Level 8.8, Fasting Glucose 96, Glomerular Filtration Rate 5.9L, White Blood Count 5.6, Red Blood Count 2.89L, Hemoglobin 10.1L, Hematocrit 30.8L, Mean Corpuscular Volume 106.6H, Mean Corpuscular Hemoglobin 34.8H, Mean Corpuscular Hemoglobin Concent 32.7, Red Cell Distribution Width 15.8H, Platelet Count 280, Phosphorus Level 5.4H, Prothromb Time International Ratio 2.81, Prothrombin Time 29.6H 10/24/16 06:43: Prothromb Time International Ratio 2.83, Prothrombin Time 29.8H Medications Medications Current Medications Acetaminophen (Tylenol) 650 mg Q4HP PRN PO MILD PAIN (PS 1-4) Last administered on 10/22/16 21:26; Start 10/10/16 at 15:45; Stop 11/09/16 at 15:44 Acetaminophen/ Hydrocodone Bitart ([place], Anexsia 5/325) 1 tab Q4HP PRN PO MODERATE/SEVERE PAIN (PS 5-10); Start 10/10/16 at 15:45; Stop 10/30/16 at 15:44 Allopurinol (Zyloprim) 300 mg DAILY PO Last administered on 10/11/16 08:33; Start 10/11/16 at 09:00; Stop 10/12/16 at 07:11; Status DC Carbidopa/Levodopa (Sinemet 10/) 1 tab QHS PO Last administered on 22:19; Start 10/10/16 at 21:00; Stop 11/09/16 at 20:59 Carvedilol (COReg) 3.125 mg Q6H PO Last administered on 10/24/16 06:25; Start 10/10/16 at 18:00; Stop 11/09/16 at 17:59 Darbepoetin Jin (Aranesp (Dialysis Use)) 100 mcg HD IV ; Start 10/11/16 at 10: 45; Stop 11/10/16 at 10:44 Docusate Sodium (Colace) 100 mg BID PO Last administered on 10/24/16 08:46; Start 10/10/16 at 21:00; Stop 11/09/16 at 20:59 Doxazosin Mesylate (Cardura) 8 mg QHS PO Last administered on 10/23/16 22:18; Start 10/10/16 at 21:00; Stop 11/09/16 at 20:59 Furosemide (Lasix) 80 mg DAILY PO Last administered on 10/24/16 08:46; Start 10/11/16 at 09:00; Stop 11/10/16 at 08:59 Hydroxyzine HCl (Vistaril) 25 mg TID PRN PO ANXIETY; Start 10/10/16 at 16:00; Stop 11/09/16 at 15:59 Iron (Venofer) 100 mg HD IV ; Start 10/12/16 at 07:15; Stop 11/11/16 at 07:14 Latanoprost (Xalatan 0.005% Op Soln) 1 drop QHS OU Last administered on 22:20; Start 10/10/16 at 21:00; Stop 11/09/16 at 20:59 Levetiracetam (Keppra) 500 mg BID PO Last administered on 10/19/16 09:01; Start 10/10/16 at 21:00; Stop 10/19/16 at 09:29; Status DC Levetiracetam (Keppra) 750 mg BID PO Last administered on 10/24/16 08:46; Start 10/19/16 at 21:00; Stop 11/18/16 at 20:59 Levothyroxine Sodium (Synthroid) 0.2 mg DAILY@06 PO Last administered on 06:24; Start 10/11/16 at 06:00; Stop 11/10/16 at 05:59 Magnesium Hydroxide (Milk Of Magnesia) 30 ml DAILYPRN PRN PO CONSTIPATION Last administered on 10/19/16 13:00; Start 10/10/16 at 15:45; Stop 11/09/16 at 15:44 Polyethylene Glycol (Miralax) 1 pkt DAILY PO Last administered on 10/19/16 08: 57; Start 10/18/16 at 09:00; Stop 10/19/16 at 15:35; Status DC Polyethylene Glycol (Miralax) 1 pkt DAILY PRN PO CONSTIPATION Last administered on 10/17/16 10:43; Start 10/10/16 at 15:45; Stop 10/17/16 at 11:39 ; Status DC Polyethylene Glycol (Miralax) 1 pkt DAILYPRN PRN PO CONSTIPATION; Start at 09:00; Stop 11/19/16 at 08:59 Psyllium Hydrophilic Mucilloid (Metamucil) 1 pkt DAILY PO Last administered on 10/24/16 08:46; Start 10/19/16 at 09:00; Stop 11/18/16 at 08:59 Senna (Senokot) 1 tab BID PO Last administered on 10/24/16 08:46; Start at 21:00; Stop 11/15/16 at 20:59 Senna (Senokot) 1 tab QHS PO Last administered on 10/15/16 20:53; Start at 21:00; Stop 10/16/16 at 10:47; Status DC Sevelamer Carbonate (Renvela) 1,600 mg WM PO Last administered on 10/24/16 08: 46; Start 10/10/16 at 18:00; Stop 11/09/16 at 17:59 Simvastatin (Zocor) 40 mg QPM@18 PO Last administered on 10/23/16 17:55; Start 10/10/16 at 18:00; Stop 11/09/16 at 17:59 Timolol Maleate (Timoptic-Xe 0.5% Oph Gfs) 1 drop DAILY OU Last administered on 10/24/16 08:47; Start 10/11/16 at 09:00; Stop 11/10/16 at 08:59 Vitamin B Complex/ Vit C/Folic Acid (Nephro-Annie Rx) 1 tab QPM PO Last administered on 10/23/16 22:19; Start 10/11/16 at 21:00; Stop 11/10/16 at 20:59 Warfarin Sodium (Coumadin) 3 mg DAILY@17 PO Last administered on 10/22/16 17: 16; Start 10/21/16 at 17:00; Stop 10/23/16 at 11:08; Status DC Warfarin Sodium (Coumadin) 5 mg DAILY@17 PO Last administered on 10/12/16 17: 29; Start 10/10/16 at 17:00; Stop 10/13/16 at 10:20; Status DC Scheduled (Antoinette-Annie Rx 1 mg) 1 Tab Tab 1 TAB PO DAILY (Reported) Allopurinol (Zyloprim) 300 Mg Tab 300 MG PO DAILY (Reported) Carbidopa/Levodopa (Carbidopa/Levodopa 10-100 mg) 1 Tab Tab 1 TAB PO QHS ( Reported) Carvedilol (Carvedilol) 6.25 Mg Tab 6.25 MG PO BID (Reported) SEE COMMENTS Doxazosin Mesylate (Doxazosin) 8 Mg Tab 8 MG PO QHS (Reported) Furosemide (Furosemide) 80 Mg Tab 80 MG PO DAILY (Reported) Latanoprost (Latanoprost) 50 Drop/2.5 Ml Soln 1 DROP OU QHS (Reported) Levetiracetam (Keppra) 750 Mg Tab 750 MG PO BID Levothyroxine Sodium (Synthroid) 200 Mcg Tab 200 MCG PO DAILY (Reported) Lovastatin (Lovastatin) 40 Mg Tab 40 MG PO QPM (Reported) DINNERTIME Sevelamer Carbonate (Renvela) 800 Mg Tab 1,600 MG PO WM (Reported) Timolol Maleate (Timolol Maleate 0.5% Opth GFS) 100 Drop/5 Ml Gel 1 DROP OU DAILY (Reported) Warfarin Sod (Warfarin Sodium) 2.5 Mg Tab 2.5 MG PO DAILY Dose may be adjusted by PCP pending future INR Scheduled PRN Hydroxyzine HCl (Hydroxyzine HCl) 25 Mg Tab 25 MG PO TID PRN PRN ANXIETY ( Reported) Allergies Coded Allergies: Penicillins (Unverified Allergy, Intermediate, HIVES, 10/06/16) JENNIFER HAMPTON MD Oct 24, 2016 12:30
== END 2016-10-24 13:45 | disposition home or self-care (01) | DRG 559 ==
LOC: M PM&R 17:01
PROVIDERS: ADMIT Physical Medicine & Rehabilitation; ATTEND Physical Medicine & Rehabilitation
PROC: 5A1D00Z (ICD-10-PCS; principal; 2016-10-11)
DX: S72.141D Displaced intertrochanteric fracture of right femur, subsequent encounter for closed fracture with routine healing (principal); N18.6 End stage renal disease; D62 Acute posthemorrhagic anemia; E46 Unspecified protein-calorie malnutrition; G40.209 Localization-related (focal) (partial) symptomatic epilepsy and epileptic syndromes with complex partial seizures, not intractable, without status epilepticus; I12.0 Hypertensive chronic kidney disease with stage 5 chronic kidney disease or end stage renal disease; R26.9 Unspecified abnormalities of gait and mobility; I48.91 Unspecified atrial fibrillation; E83.39 Other disorders of phosphorus metabolism; D63.1 Anemia in chronic kidney disease; M10.9 Gout, unspecified; K59.00 Constipation, unspecified; Z96.653 Presence of artificial knee joint, bilateral; Z99.2 Dependence on renal dialysis; Z79.899 Other long term (current) drug therapy; W11.XXXD Fall on and from ladder, subsequent encounter; Y92.019 Unspecified place in single-family (private) house as the place of occurrence of the external cause; Y93.E9 Activity, other interior property and clothing maintenance; Z86.79 Personal history of other diseases of the circulatory system; Z88.0 Allergy status to penicillin; Z87.891 Personal history of nicotine dependence; Z80.1 Family history of malignant neoplasm of trachea, bronchus and lung; Z82.3 Family history of stroke; Z79.01 Long term (current) use of anticoagulants; Y99.9 Unspecified external cause status